=== PATIENT | male | born 1940 | race Caucasian/White ===

== ENCOUNTER 2018-01-05 10:16 | Inpatient (IN) | payer MEDICARE, BC ==
[2018-01-05] MEDS ORDERED: SODIUM CHLORIDE 0.9% 2,000 ML IV ONE (10:24)
--- NOTE | 2018-01-05 10:27 | ED ---
Altered Mental Status HPI - General Stated Complaint: Poss Sepsis Time Seen by Provider: 01/05/18 10:16 Source: EMS, RN notes reviewed, old records reviewed Mode of arrival: EMS - History of Present Illness Initial Comments: This is a 69-year-old male [facility] with complaints of decreased level of consciousness he has of a history dementia who is noted have elevated temperature below her blood pressure increased heart rate blood pressure per EMS of 96/49 after some fluids was 112/48 he also apparently has a bedsore. History pneumonia history of COPD and CHF. Glucose was 240 he is a diabetic. Main complaint was that of lethargy concern for sepsis. No reports of cough reports of dysuria though he does have a chronic indwelling catheter. MD Complaint: decreased responsiveness - Related Data Home Medications Medication Instructions Recorded Confirmed Acetaminophen [Tylenol] 650 mg PO Q6H PRN 01/05/18 01/05/18 Aspirin EC [Ecotrin Low Dose] 81 mg PO HS 01/05/18 01/05/18 Atorvastatin [Lipitor] 20 mg PO HS 01/05/18 01/05/18 Baclofen [Lioresal] 10 mg PO TID@0500,1300,2100 01/05/18 01/05/18 Carvedilol [Coreg] 25 mg PO BID 01/05/18 01/05/18 Citalopram Hydrobromide [CeleXA] 20 mg PO DAILY 01/05/18 01/05/18 Dapagliflozin Propanediol [Farxiga] 10 mg PO DAILY 01/05/18 01/05/18 Dermaseptin 1 applic TOPICAL TID 01/05/18 01/05/18 Diclofenac Sodium/Misoprostol 1 tab PO BID 01/05/18 01/05/18 [Arthrotec 75 mg-200 Mcg Tab] Docusate [Colace] 100 mg PO BID 01/05/18 01/05/18 Donepezil [Aricept] 20 mg PO HS 01/05/18 01/05/18 Famotidine [Pepcid] 20 mg PO DAILY 01/05/18 01/05/18 Gabapentin [Neurontin] 100 mg PO BID 01/05/18 01/05/18 HYDROcodone/APAP 10-325MG [[place] 1 tab PO Q6H PRN 01/05/18 01/05/18 10-325] Insulin Regular, Human [NovoLIN R] See Protocol SQ ACHS@06,11,16,20 01/05/1805/18 Ipratropium-Albuterol Nebulize 3 ml INHALATION RT-Q4H PRN 01/05/18 01/05/18 [Duoneb 0.5 mg-3 mg/3 ml Soln] LORazepam [Ativan] 0.5 mg PO Q6H PRN 01/05/18 01/05/18 Lidocaine [Lidoderm 5% Patch] 1 patch TRANSDERM DAILY@0500 01/05/18 01/05/18 Losartan Potassium 100 mg PO DAILY 01/05/18 01/05/18 Magnesium 200 mg PO HS 01/05/18 01/05/18 Melatonin 5 mg PO HS@199901/05/18 01/05/18 Menthol [Biofreeze] 1 applic TOPICAL TID 01/05/18 01/05/18 Tamsulosin HCl [Flomax] 0.4 mg PO HS 01/05/18 01/05/18 amLODIPine [Norvasc] 10 mg PO DAILY 01/05/18 01/05/18 fentaNYL 25MCG/HR PATCH [Duragesic 1 patch TRANSDERM Q72H 01/05/18 01/05/18 25MCG/HR] traZODone HCL [Desyrel] 50 mg PO HS@199901/05/18 01/05/18 Allergies Allergy/AdvReac Type Severity Reaction Status Date / Time ciprofloxacin [From Cipro] Allergy Unknown Verified 01/05/18 10:34 Review of Systems ROS Statement: Those systems with pertinent positive or pertinent negative responses have been documented in the HPI. ROS Other: All systems not noted in ROS Statement are negative. Limitations: ROS unobtainable due to patients medical condition General Exam - General Exam Comments Initial Comments: This is a well-developed well-nourished awake lethargic male General appearance: alert, lethargic Head exam: Present: atraumatic, normocephalic, normal inspection Eye exam: Present: normal appearance, PERRL, EOMI. Absent: scleral icterus, conjunctival injection, periorbital swelling ENT exam: Present: mucous membranes dry Neck exam: Present: normal inspection. Absent: tenderness, meningismus, lymphadenopathy Respiratory exam: Present: normal lung sounds bilaterally. Absent: respiratory distress, wheezes, rales, rhonchi, stridor Cardiovascular Exam: Present: regular rate, normal rhythm, normal heart sounds. Absent: systolic murmur, diastolic murmur, rubs, gallop, clicks GI/Abdominal exam: Present: soft, normal bowel sounds. Absent: distended, tenderness, guarding, rebound, rigid Rectal exam: Present: normal inspection, other (Patient does have evidence of stage II decubitus changes to the sacrum bilaterally more so on the left. No active weeping or drainage at this time. Marked erythema) exam: Present: other (Lazcano catheter is in place) Extremities exam: Present: normal inspection, full ROM, normal capillary refill. Absent: tenderness, pedal edema, joint swelling, calf tenderness Back exam: Present: normal inspection Neurological exam: Present: alert, altered, CN II-XII intact Psychiatric exam: Present: normal affect, normal mood Skin exam: Present: warm, dry, intact, normal color. Absent: rash Course Vital Signs 01/05/18 01/05/18 01/05/18 10:20 10:33 11:01 Temperature 98.9 F Pulse Rate 68 69 Respiratory 20 20 18 Rate Blood Pressure 97/54 87/50 O2 Sat by Pulse 95 97 Oximetry 01/05/18 01/05/18 01/05/18 12:28 12:38 13:55 Temperature 99.0 F Pulse Rate 73 65 Respiratory 18 18 Rate Blood Pressure 89/52 95/62 O2 Sat by Pulse 95 99 Oximetry Medical Decision Making - Medical Decision Making Patient did respond to IV fluids I did discuss findings with him and his family. Patient be admitted for IV antibiotics IV fluids - Lab Data Result diagrams: 01/05/18 10:49 01/05/18 10:49 Lab Results 01/05/18 01/05/18 01/05/18 Range/Units 10:49 10:49 10:49 WBC 10.9 H (3.8-10.6) k/uL RBC 3.73 L (4.30-5.90) m/uL Hgb 11.6 L (13.0-17.5) gm/dL Hct 33.4 L (39.0-53.0) % MCV 89.7 (80.0-100.0) fL MCH 31.0 (25.0-35.0) pg MCHC 34.6 (31.0-37.0) g/dL RDW 15.1 (11.5-15.5) % Plt Count 220 (150-450) k/uL Neutrophils % 87 % Lymphocytes % 3 % Monocytes % 6 % Eosinophils % 0 % Basophils % 0 % Neutrophils # 9.5 H (1.3-7.7) k/uL Lymphocytes # 0.3 L (1.0-4.8) k/uL Monocytes # 0.7 (0-1.0) k/uL Eosinophils # 0.0 (0-0.7) k/uL Basophils # 0.0 (0-0.2) k/uL Poikilocytosis Slight Sodium (137-145) mmol/L Potassium (3.5-5.1) mmol/L Chloride (98-107) mmol/L Carbon Dioxide (22-30) mmol/L Anion Gap mmol/L BUN (9-20) mg/dL Creatinine (0.66-1.25) mg/dL Est GFR (CKD-EPI)AfAm (>60 ml/min/1.73 sqM) Est GFR (CKD-EPI)NonAf (>60 ml/min/1.73 sqM) Glucose (74-99) mg/dL Plasma Lactic Acid [place] (0.7-2.0) mmol/L Calcium (8.4-10.2) mg/dL Magnesium (1.6-2.3) mg/dL Total Bilirubin (0.2-1.3) mg/dL AST (17-59) U/L ALT (21-72) U/L Alkaline Phosphatase (38-126) U/L Ammonia 16 (<30) umol/L Total Creatine Kinase 36 L (55-170) U/L CK-MB (CK-2) 0.7 (0.0-2.4) ng/mL CK-MB (CK-2) Rel Index 1.9 Total Protein (6.3-8.2) g/dL Albumin (3.5-5.0) g/dL Urine Color Urine Appearance (Clear) Urine pH (5.0-8.0) Ur Specific [place] (1.001-1.035) Urine Protein (Negative) Urine Glucose (UA) (Negative) Urine Ketones (Negative) Urine Blood (Negative) Urine Nitrite (Negative) Urine Bilirubin (Negative) Urine Urobilinogen (<2.0) mg/dL Ur Leukocyte Esterase (Negative) Urine RBC (0-5) /hpf Urine WBC (0-5) /hpf Urine WBC Clumps (None) /hpf 01/05/18 01/05/18 01/05/18 Range/Units 10:49 10:49 10:49 WBC (3.8-10.6) k/uL RBC (4.30-5.90) m/uL Hgb (13.0-17.5) gm/dL Hct (39.0-53.0) % MCV (80.0-100.0) fL MCH (25.0-35.0) pg MCHC (31.0-37.0) g/dL RDW (11.5-15.5) % Plt Count (150-450) k/uL Neutrophils % % Lymphocytes % % Monocytes % % Eosinophils % % Basophils % % Neutrophils # (1.3-7.7) k/uL Lymphocytes # (1.0-4.8) k/uL Monocytes # (0-1.0) k/uL Eosinophils # (0-0.7) k/uL Basophils # (0-0.2) k/uL Poikilocytosis Sodium 143 (137-145) mmol/L Potassium 3.5 (3.5-5.1) mmol/L Chloride 109 H (98-107) mmol/L Carbon Dioxide 23 (22-30) mmol/L Anion Gap 11 mmol/L BUN 23 H (9-20) mg/dL Creatinine 1.00 (0.66-1.25) mg/dL Est GFR (CKD-EPI)AfAm 83 (>60 ml/min/1.73 sqM) Est GFR (CKD-EPI)NonAf 72 (>60 ml/min/1.73 sqM) Glucose 186 H (74-99) mg/dL Plasma Lactic Acid [place] 0.8 (0.7-2.0) mmol/L Calcium 8.5 (8.4-10.2) mg/dL Magnesium 1.8 (1.6-2.3) mg/dL Total Bilirubin 0.9 (0.2-1.3) mg/dL AST 18 (17-59) U/L ALT 33 (21-72) U/L Alkaline Phosphatase 96 (38-126) U/L Ammonia (<30) umol/L Total Creatine Kinase (55-170) U/L CK-MB (CK-2) (0.0-2.4) ng/mL CK-MB (CK-2) Rel Index Total Protein 5.4 L (6.3-8.2) g/dL Albumin 2.6 L (3.5-5.0) g/dL Urine Color Yellow Urine Appearance Cloudy (Clear) Urine pH 6.0 (5.0-8.0) Ur Specific [place] 1.017 (1.001-1.035) Urine Protein 1+ H (Negative) Urine Glucose (UA) 4+ H (Negative) Urine Ketones Negative (Negative) Urine Blood Small H (Negative) Urine Nitrite Positive (Negative) Urine Bilirubin Negative (Negative) Urine Urobilinogen <2.0 (<2.0) mg/dL Ur Leukocyte Esterase Large H (Negative) Urine RBC 5 (0-5) /hpf Urine WBC 81 H (0-5) /hpf Urine WBC Clumps Few H (None) /hpf - EKG Data -: EKG Interpreted by Oh EKG shows normal: [place] [address] QRS duration 92 QT/QTC of 454/42: QT st-t wave changes) - Radiology Data Radiology results: report reviewed (No definite findings on the x-ray), image reviewed Disposition Clinical Impression: Urinary tract infection, Hypotension, Dehydration, Decubitus ulcer Disposition: ADMITTED IP TO THIS [facility] Condition: Stable Referrals: Shaheen Pleitez MD [REFERRING] - 1-2 days
[2018-01-05 11:08] LABS: Basophils % (A) 0 %; Eosinophils % (A) 0 %; HCT 33.4 % (39.0-53.0); HGB 11.6 gm/dL (13.0-17.5); Lymphocytes # (A) 0.3 k/uL (1.0-4.8); Lymphocytes % (A) 3 %; MCHC 34.6 g/dL (31.0-37.0); MCV 89.7 fL (80.0-100.0); Mean Platelet Volume 6.4; Monocytes # (A) 0.7 k/uL (0-1.0); Monocytes % (A) 6 %; Neutrophils # (A) 9.5 k/uL (1.3-7.7); Neutrophils % (A) 87 %; Platelet Count 220 k/uL (150-450); Poikilocytosis Slight; RBC 3.73 m/uL (4.30-5.90); RDW 15.1 % (11.5-15.5); WBC 10.9 k/uL (3.8-10.6)
[2018-01-05 11:28] LABS: Appearance,Urine Cloudy (Clear); Bilirubin,Urine Negative (Negative); Blood,Urine Small (Negative); Color,Urine Yellow; Glucose,Urine (UA) 4+ (Negative); Ketones,Urine Negative (Negative); Leukocyte Esterase,Urine Large (Negative); Nitrite,Urine Positive (Negative); Protein,Urine 1+ (Negative); RBC,Urine 5 /hpf (0-5); Specific Gravity,Urine 1.017 (1.001-1.035); Urobilinogen,Urine <2.0 mg/dL (<2.0); WBC,Urine 81 /hpf (0-5)
[2018-01-05 11:29] LABS: Albumin 2.6 g/dL (3.5-5.0); Calcium 8.5 mg/dL (8.4-10.2); Magnesium 1.8 mg/dL (1.6-2.3); Potassium 3.5 mmol/L (3.5-5.1); Total Bilirubin 0.9 mg/dL (0.2-1.3); Total Protein 5.4 g/dL (6.3-8.2)
--- NOTE | 2018-01-05 11:34 | XR ---
EXAMINATION TYPE: XR chest 2V DATE OF EXAM: 01/05/2018 COMPARISON: Prior chest x-ray 04/28/2017 HISTORY: Cough and shortness of breath TECHNIQUE: Frontal and lateral views of the chest are obtained. FINDINGS: There is bronchial wall thickening. The patient is rotated. Cardiomediastinal silhouette, pulmonary vascularity and mariusz are stable. No airspace disease, pneumothorax, or pleural effusion dinesh dent. IMPRESSION: Correlate for bronchitis, reactive airways disease, follow-up as indicated.
[2018-01-05 11:48] LABS: Creatine Kinase MB 0.7 ng/mL (0.0-2.4)
[2018-01-05] MEDS ORDERED: SODIUM CHLORIDE 0.9% 1,000 ML IV STA (12:31)
[2018-01-05] MEDS ORDERED: PIPERACILLIN-TAZOBACTAM 3.375 GM in DEXTROSE/WATER 1 50ML.BAG IVPB STA (12:32)
[2018-01-05] MEDS ORDERED: MORPHINE SULFATE 4 MG/ML SYRINGE IVP STA (13:52)
[2018-01-05] MEDS ORDERED: NALOXONE 0.4 MG/ML 1 ML VIAL IV PRN (14:49)
[2018-01-05] MEDS ORDERED: IPRATROPIUM-ALBUTEROL 3 ML NEB INHALATION PRN (14:53)
[2018-01-05] MEDS: CALAMINE/ZINC OXIDE LOTION 177 ML BTL TOPICAL SCH ×2 (16:56→21:57)
[2018-01-05] MEDS: CARVEDILOL 12.5 MG TAB PO SCH (17:05)
[2018-01-05 17:30] LABS: Glucose,Whole Blood 154 mg/dL (75-99)
[2018-01-05] MEDS: INSULIN ASPART 100 UNIT/ML 1 ML 10 ML VIAL SQ SCH ×2 (17:33→21:57)
[2018-01-05] MEDS: LORazepam 0.5 MG TAB PO PRN (18:28)
[2018-01-05] MEDS: HYDROcodone/APAP 10-325MG 1 EACH TAB PO PRN (18:37)
[2018-01-05] MEDS: traZODone HCL 50 MG TAB PO SCH (20:02)
[2018-01-05] MEDS: MELATONIN 5 MG TABLET PO SCH (20:02)
[2018-01-05] MEDS: BACLOFEN 10 MG TAB PO SCH (20:03)
[2018-01-05] MEDS: GABAPENTIN 100 MG CAP PO SCH (20:03)
[2018-01-05] MEDS: DOCUSATE 100 MG CAP PO SCH (20:03)
[2018-01-05] MEDS: ASPIRIN 81 MG PO SCH (20:03)
[2018-01-05] MEDS: ATORVASTATIN 20 MG TAB PO SCH (20:03)
[2018-01-05] MEDS: DONEPEZIL 10 MG TAB PO SCH (20:03)
[2018-01-05] MEDS: TAMSULOSIN 0.4 MG CAP.ER.24H PO SCH (20:04)
[2018-01-05] MEDS: MAGNESIUM OXIDE 400 MG TAB PO SCH (20:04)
[2018-01-05 21:18] LABS: Glucose,Whole Blood 115 mg/dL (75-99)
--- NOTE | 2018-01-05 23:03 | P.HPIM ---
History of Present Illness H&P Date: 01/05/18 Chief Complaint: Altered mental status Patient is a 77-year-old male with a known history of dementia, hypertension, hyperlipidemia, diabetes type 2 insulin-dependent and poor functional status was brought from [facility] with complaints of decreased level of consciousness. Patient was recently at [facility] and was transferred to [facility] on last Wednesday. Patient had urinary retention during previous admission and was placed on indwelling catheter before [facility]. Patient also developed stage II decub ulcers. Due to confusion and lethargy and patient was sent to hospital for possible decubitus infection. Patient also had fever, tremors and tachycardic Otherwise patient denied any cough or sputum production. No complaints of chest pain. No shortness of breath. Patient does have indwelling catheter with leg bag currently. 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 Chest x-ray showed correlate for bronchitis. UA showed 4+ glucose. Large leukocyte esterase and WC count 81 Most of the history was taken from his daughter and at bedside and medical records. Review of Systems Complete review of systems could not be apparent from the patient Past Medical History Past Medical History: Dementia, Diabetes Mellitus, Hyperlipidemia, Hypertension , Prostate Disorder History of Any Multi-Drug Resistant Organisms: None Reported Past Psychological History: No Psychological Hx Reported Smoking Status: Former smoker Past Alcohol Use History: None Reported Past Drug Use History: None Reported - Past Family History Brother(s) Family Medical History: Cancer Medications and Allergies Home Medications Medication Instructions Recorded Confirmed Type Acetaminophen [Tylenol] 650 mg PO Q6H PRN 01/05/18 01/05/18 History Aspirin EC [Ecotrin Low Dose] 81 mg PO HS 01/05/18 01/05/18 History Atorvastatin [Lipitor] 20 mg PO HS 01/05/18 01/05/18 History Baclofen [Lioresal] 10 mg PO TID@0500,1300,2100 01/05/18 01/05/18 History Carvedilol [Coreg] 25 mg PO BID 01/05/18 01/05/18 History Citalopram Hydrobromide [CeleXA] 20 mg PO DAILY 01/05/18 01/05/18 History Dapagliflozin Propanediol [Farxiga] 10 mg PO DAILY 01/05/18 01/05/18 History Dermaseptin 1 applic TOPICAL TID 01/05/18 01/05/18 History Diclofenac Sodium/Misoprostol 1 tab PO BID 01/05/18 01/05/18 History [Arthrotec 75 mg-200 Mcg Tab] Docusate [Colace] 100 mg PO BID 01/05/18 01/05/18 History Donepezil [Aricept] 20 mg PO HS 01/05/18 01/05/18 History Famotidine [Pepcid] 20 mg PO DAILY 01/05/18 01/05/18 History Gabapentin [Neurontin] 100 mg PO BID 01/05/18 01/05/18 History HYDROcodone/APAP 10-325MG [[place] 1 tab PO Q6H PRN 01/05/18 01/05/18 History 10-325] Insulin Regular, Human [NovoLIN R] See Protocol SQ ACHS@06,11,16,20 01/05/1805/18 History Ipratropium-Albuterol Nebulize 3 ml INHALATION RT-Q4H PRN 01/05/18 01/05/18 History [Duoneb 0.5 mg-3 mg/3 ml Soln] LORazepam [Ativan] 0.5 mg PO Q6H PRN 01/05/18 01/05/18 History Lidocaine [Lidoderm 5% Patch] 1 patch TRANSDERM DAILY@0500 01/05/18 01/05/18 History Losartan Potassium 100 mg PO DAILY 01/05/18 01/05/18 History Magnesium 200 mg PO HS 01/05/18 01/05/18 History Melatonin 5 mg PO HS@199901/05/18 01/05/18 History Menthol [Biofreeze] 1 applic TOPICAL TID 01/05/18 01/05/18 History Tamsulosin HCl [Flomax] 0.4 mg PO HS 01/05/18 01/05/18 History amLODIPine [Norvasc] 10 mg PO DAILY 01/05/18 01/05/18 History fentaNYL 25MCG/HR PATCH [Duragesic 1 patch TRANSDERM Q72H 01/05/18 01/05/18 History 25MCG/HR] traZODone HCL [Desyrel] 50 mg PO HS@199901/05/18 01/05/18 History Allergies Allergy/AdvReac Type Severity Reaction Status Date / Time ciprofloxacin [From Cipro] Allergy Unknown Verified 01/05/18 10:34 Physical Exam Vitals: Vital Signs Temp Pulse Resp BP Pulse Ox 01/05/18 15:00 88 20 103/56 99 01/05/18 13:55 65 18 95/62 99 01/05/18 12:38 99.0 F 01/05/18 12:28 73 18 89/52 95 01/05/18 11:01 69 18 87/50 97 01/05/18 10:33 20 01/05/18 10:20 98.9 F 68 20 97/54 95 Intake and Output 01/05/18 01/05/18 01/05/18 06:59 14:59 22:59 Other: Weight 68.039 kg Patient Weight 01/06/18 06:59 Weight 68.039 kg PHYSICAL EXAMINATION: Patient is lying in the bed comfortably, no acute distress, awake alert but confused HEENT: Normocephalic. Neck is supple. Pupils reactive. Nostrils clear. Oral cavity is moist. Ears reveal no drainage. Neck reveals no JVD, carotid bruits, or thyromegaly. CHEST EXAMINATION: Trachea is central. Symmetrical expansion. Diminished bilateral air entry. No wheezing no rhonchi. CARDIAC: Normal S1, S2 with no gallops. No murmurs ABDOMEN: Soft. Bowel sounds normal. No organomegaly. No abdominal bruits. Extremities: reveal no edema. No clubbing or cyanosis Neurologically awake, alert and oriented 1 with well-coordinated movements. No focal deficits noted Skin: No rash . Patient does have stage II decub ulcers in the sacral area with no discharge or foul-smelling Psychiatric: Could not be assessed completely Musculoskeletal: No joint swelling or deformity. Normal range of motion. Results CBC & Chem 7: 01/05/18 10:49 01/05/18 10:49 Labs: Abnormal Lab Results - Last 24 Hours (Table) 01/05/18 01/05/18 01/05/18 Range/Units 10:49 10:49 10:49 WBC 10.9 H (3.8-10.6) k/uL RBC 3.73 L (4.30-5.90) m/uL Hgb 11.6 L (13.0-17.5) gm/dL Hct 33.4 L (39.0-53.0) % Neutrophils # 9.5 H (1.3-7.7) k/uL Lymphocytes # 0.3 L (1.0-4.8) k/uL Chloride 109 H (98-107) mmol/L BUN 23 H (9-20) mg/dL Glucose 186 H (74-99) mg/dL Total Creatine Kinase 36 L (55-170) U/L Total Protein 5.4 L (6.3-8.2) g/dL Albumin 2.6 L (3.5-5.0) g/dL Urine Protein (Negative) Urine Glucose (UA) (Negative) Urine Blood (Negative) Ur Leukocyte Esterase (Negative) Urine WBC (0-5) /hpf Urine WBC Clumps (None) /hpf 01/05/18 Range/Units 10:49 WBC (3.8-10.6) k/uL RBC (4.30-5.90) m/uL Hgb (13.0-17.5) gm/dL Hct (39.0-53.0) % Neutrophils # (1.3-7.7) k/uL Lymphocytes # (1.0-4.8) k/uL Chloride (98-107) mmol/L BUN (9-20) mg/dL Glucose (74-99) mg/dL Total Creatine Kinase (55-170) U/L Total Protein (6.3-8.2) g/dL Albumin (3.5-5.0) g/dL Urine Protein 1+ H (Negative) Urine Glucose (UA) 4+ H (Negative) Urine Blood Small H (Negative) Ur Leukocyte Esterase Large H (Negative) Urine WBC 81 H (0-5) /hpf Urine WBC Clumps Few H (None) /hpf Thrombosis Risk Factor Assmnt - DVT/VTE Prophylaxis DVT/VTE Prophylaxis: Pharmacologic Prophylaxis ordered Assessment and Plan Assessment: Acute urinary tract infection. Complicated likely related to Lazcano catheter Altered mental status. Possible metabolic encephalopathy due to infection Stage II sacral decubitus ulcers. Dementia Poor functional status Hypertension Diabetes type 2 Recent urinary retention at outside hospital, currently on Lazcano catheter History of chronic back pain from remote injury DVT prophylaxis Plan: Patient will be continued on antibiotics in the form of Zosyn. Follow-up urine culture and blood culture. Wound care for decubitus ulcers. Continue with home medications and insulin dosing. ID was consulted for further evaluation. Prognosis is guarded with multiple medical problems and comorbid conditions. Time with Patient: Greater than 30
[2018-01-06] MEDS: PIPERACILLIN-TAZOBACTAM 3.375 GM in DEXTROSE/WATER 1 50ML.BAG IVPB SCH ×3 (00:32→16:05)
[2018-01-06] MEDS: LIDOCAINE 5% PATCH TOPICAL SCH (04:49)
[2018-01-06] MEDS: BACLOFEN 10 MG TAB PO SCH ×3 (04:50→21:03)
[2018-01-06] MEDS: HYDROcodone/APAP 10-325MG 1 EACH TAB PO PRN ×2 (04:50→15:09)
[2018-01-06 07:20] LABS: Glucose,Whole Blood 136 mg/dL (75-99)
[2018-01-06] MEDS: INSULIN ASPART 100 UNIT/ML 1 ML 10 ML VIAL SQ SCH ×4 (08:01→22:38)
[2018-01-06] MEDS: CITALOPRAM HYDROBROMIDE 20 MG TAB PO SCH (08:02)
[2018-01-06] MEDS: CARVEDILOL 12.5 MG TAB PO SCH ×2 (08:02→17:46)
[2018-01-06] MEDS: Dapagliflozin Propanediol [Farxiga] PO SCH (08:02)
[2018-01-06] MEDS: amLODIPine 10 MG TAB PO SCH (08:02)
[2018-01-06] MEDS: FAMOTIDINE 20 MG TAB PO SCH (08:02)
[2018-01-06] MEDS: DOCUSATE 100 MG CAP PO SCH ×2 (08:02→21:03)
[2018-01-06] MEDS: GABAPENTIN 100 MG CAP PO SCH ×2 (08:03→21:02)
[2018-01-06] MEDS: HEPARIN SODIUM,PORCINE 5,000 UNIT/ML 1 ML VIAL SQ SCH ×2 (08:03→21:03)
[2018-01-06] MEDS: LOSARTAN 50 MG TAB PO SCH (08:03)
[2018-01-06 09:17] LABS: Basophils % (A) 0 %; Eosinophils # (A) 0.1 k/uL (0-0.7); Eosinophils % (A) 1 %; HCT 31.9 % (39.0-53.0); HGB 10.6 gm/dL (13.0-17.5); Lymphocytes # (A) 0.5 k/uL (1.0-4.8); Lymphocytes % (A) 6 %; MCH 30.3 pg (25.0-35.0); MCHC 33.2 g/dL (31.0-37.0); MCV 91.4 fL (80.0-100.0); Mean Platelet Volume 6.9; Monocytes # (A) 0.7 k/uL (0-1.0); Monocytes % (A) 9 %; Neutrophils # (A) 6.7 k/uL (1.3-7.7); Neutrophils % (A) 81 %; Platelet Count 210 k/uL (150-450); Poikilocytosis Slight; RBC 3.49 m/uL (4.30-5.90); RDW 15.1 % (11.5-15.5); WBC 8.2 k/uL (3.8-10.6)
[2018-01-06] MEDS: LORazepam 0.5 MG TAB PO PRN ×2 (09:27→16:00)
[2018-01-06 09:44] LABS: Calcium 8.3 mg/dL (8.4-10.2); Potassium 3.7 mmol/L (3.5-5.1)
[2018-01-06] MEDS: CALAMINE/ZINC OXIDE LOTION 177 ML BTL TOPICAL SCH ×3 (09:59→22:39)
[2018-01-06 12:43] LABS: Glucose,Whole Blood 152 mg/dL (75-99)
[2018-01-06 17:45] LABS: Glucose,Whole Blood 185 mg/dL (75-99)
[2018-01-06] MEDS: METHYL SALICYLATE/MENTHOL CREAM 5 OZ TOPICAL PRN (18:34)
[2018-01-06] MEDS: TAMSULOSIN 0.4 MG CAP.ER.24H PO SCH (21:02)
[2018-01-06] MEDS: DONEPEZIL 10 MG TAB PO SCH (21:02)
[2018-01-06] MEDS: ATORVASTATIN 20 MG TAB PO SCH (21:02)
[2018-01-06] MEDS: ASPIRIN 81 MG PO SCH (21:03)
[2018-01-06] MEDS: traZODone HCL 50 MG TAB PO SCH (21:03)
[2018-01-06] MEDS: MAGNESIUM OXIDE 400 MG TAB PO SCH (21:03)
[2018-01-06] MEDS: MELATONIN 5 MG TABLET PO SCH (21:15)
[2018-01-06 21:41] LABS: Glucose,Whole Blood 155 mg/dL (75-99)
--- NOTE | 2018-01-06 22:12 | P.PN ---
Subjective Progress Note Date: 01/06/18 Principal diagnosis: Urinary tract infection Patient is a 77-year-old male with a known history of dementia, hypertension, hyperlipidemia, diabetes type 2 insulin-dependent and poor functional status was brought from [facility] with complaints of decreased level of consciousness. Patient was recently at [facility] and was [facility]. Patient had urinary retention during previous admission and was placed on indwelling catheter before discharging to intermediate. Patient also developed stage II decub ulcers. Due to confusion and lethargy and patient was sent to hospital for possible decubitus infection. Patient also had fever, tremors and tachycardic Otherwise patient denied any cough or sputum production. No complaints of chest pain. No shortness of breath. Patient does have indwelling catheter with leg bag currently. 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 Chest x-ray showed correlate for bronchitis. UA showed 4+ glucose. Large leukocyte esterase and WBC count 8.1 01/06/2018 Patient is a poor historian. Denied any chest pain or shortness of breath. Otherwise patient is trying to get to the bed. Sitter is at bedside. ID consult is pending at this time. Urine culture showed gram-negative bacilli. No fever no chills otherwise. Tolerating oral diet. No other acute overnight issues. Complete review of systems could not be apparent from the patient Current medications reviewed Objective - Vital Signs Vital signs: Vital Signs Temp 99.9 F H 01/06/18 15:00 Pulse 94 01/06/18 15:00 Resp 18 01/06/18 15:00 BP 119/54 01/06/18 15:00 Pulse Ox 90 L 01/06/18 15:00 Intake & Output 01/06/18 01/06/18 01/07/18 06:59 18:59 06:59 Output Total 400 Balance -400 Weight 68.039 kg Output: Urine 400 Other: Voiding Method Indwelling Catheter Indwelling Catheter # Voids 1,200 - Exam Patient is lying in the bed comfortably, no acute distress, awake alert but confused HEENT: Normocephalic. Neck is supple. Pupils reactive. Nostrils clear. Oral cavity is moist. Ears reveal no drainage. Neck reveals no JVD, carotid bruits, or thyromegaly. CHEST EXAMINATION: Trachea is central. Symmetrical expansion. Diminished bilateral air entry. No wheezing no rhonchi. CARDIAC: Normal S1, S2 with no gallops. No murmurs ABDOMEN: Soft. Bowel sounds normal. No organomegaly. No abdominal bruits. Extremities: reveal no edema. No clubbing or cyanosis Neurologically awake, alert and oriented 1 with well-coordinated movements. No focal deficits noted Skin: No rash . Patient does have stage II decub ulcers in the sacral area with no discharge or foul-smelling Psychiatric: Could not be assessed completely Musculoskeletal: No joint swelling or deformity. Normal range of motion. - Labs CBC & Chem 7: 01/06/18 08:47 01/06/18 08:47 Labs: Abnormal Lab Results - Last 24 Hours (Table) 01/06/18 01/06/18 01/06/18 Range/Units 07:17 08:47 08:47 RBC 3.49 L (4.30-5.90) m/uL Hgb 10.6 L (13.0-17.5) gm/dL Hct 31.9 L (39.0-53.0) % Lymphocytes # 0.5 L (1.0-4.8) k/uL Chloride 109 H (98-107) mmol/L Glucose 170 H (74-99) mg/dL POC Glucose (mg/dL) 136 H (75-99) mg/dL Calcium 8.3 L (8.4-10.2) mg/dL 01/06/18 01/06/18 01/06/18 Range/Units 12:36 17:36 21:32 RBC (4.30-5.90) m/uL Hgb (13.0-17.5) gm/dL Hct (39.0-53.0) % Lymphocytes # (1.0-4.8) k/uL Chloride (98-107) mmol/L Glucose (74-99) mg/dL POC Glucose (mg/dL) 152 H 185 H 155 H (75-99) mg/dL Calcium (8.4-10.2) mg/dL Microbiology - Last 24 Hours (Table) 01/05/18 10:49 Urine Culture - Preliminary Urine,Catheterized Gram Neg Bacilli 01/05/18 10:49 Blood Culture - Preliminary Blood No Growth after 24 hours Assessment and Plan Assessment: Acute urinary tract infection. Complicated likely related to Lazcano catheter Altered mental status. Possible metabolic encephalopathy due to infection.. Stage II sacral decubitus ulcers. Dementia Poor functional status Hypertension Diabetes type 2 Recent urinary retention at outside hospital, currently on Lazcano catheter History of chronic back pain from remote injury DVT prophylaxis Plan: Patient will be continued on antibiotics in the form of Zosyn. Follow-up urine culture and blood culture. Wound care for decubitus ulcers. Continue with home medications and insulin dosing. ID was consulted for further evaluation. Prognosis is guarded with multiple medical problems and comorbid conditions.
[2018-01-07] MEDS: PIPERACILLIN-TAZOBACTAM 3.375 GM in DEXTROSE/WATER 1 50ML.BAG IVPB SCH ×4 (00:43→23:06)
[2018-01-07] MEDS: HYDROcodone/APAP 10-325MG 1 EACH TAB PO PRN ×2 (03:43→13:14)
[2018-01-07] MEDS: LIDOCAINE 5% PATCH TOPICAL SCH (06:33)
[2018-01-07] MEDS: BACLOFEN 10 MG TAB PO SCH ×3 (06:33→21:37)
[2018-01-07] MEDS: COLLAGENASE 250 UNIT/GM OINTMENT 30 GM TUBE TOPICAL SCH ×2 (06:36→09:02)
[2018-01-07 07:44] LABS: Glucose,Whole Blood 166 mg/dL (75-99)
[2018-01-07] MEDS: Dapagliflozin Propanediol [Farxiga] PO SCH (08:56)
[2018-01-07] MEDS ORDERED: COLLAGENASE 250 UNIT/GM OINTMENT 30 GM TUBE TOPICAL SCH (09:00)
[2018-01-07] MEDS: CARVEDILOL 12.5 MG TAB PO SCH ×2 (09:01→16:45)
[2018-01-07] MEDS: GABAPENTIN 100 MG CAP PO SCH ×2 (09:01→21:37)
[2018-01-07] MEDS: CITALOPRAM HYDROBROMIDE 20 MG TAB PO SCH (09:01)
[2018-01-07] MEDS: FAMOTIDINE 20 MG TAB PO SCH (09:01)
[2018-01-07] MEDS: LOSARTAN 50 MG TAB PO SCH (09:01)
[2018-01-07] MEDS: amLODIPine 10 MG TAB PO SCH (09:02)
[2018-01-07] MEDS: HEPARIN SODIUM,PORCINE 5,000 UNIT/ML 1 ML VIAL SQ SCH ×2 (09:02→21:36)
[2018-01-07] MEDS: DOCUSATE 100 MG CAP PO SCH ×2 (09:02→21:36)
[2018-01-07] MEDS: INSULIN ASPART 100 UNIT/ML 1 ML 10 ML VIAL SQ SCH ×4 (09:02→21:49)
[2018-01-07] MEDS: CALAMINE/ZINC OXIDE LOTION 177 ML BTL TOPICAL SCH ×4 (09:03→21:51)
--- NOTE | 2018-01-07 09:13 | P.CONS ---
History of Present Illness - Reason for Consult Consult date: 01/06/18 - Chief Complaint Gram-negative infection - History of Present Illness 77-year-old male presents to Hospital from the extended care facility with alteration of his mental status. This 77-year-old gentleman has underlying dementia and was recently hospitalized an outside hospital where he was found evidence of urinary retention as well as urinary tract infection. It is related that he was treated for his urinary infection but apparently developed pressure ulcerations. The pressure ulcerations of his coccyx and buttocks are present on admission. It this time the patient is supine and comfortable. He is able to speak with her quality of his speech is poor and content. He does not seem to be very uncomfortable. Was not able to follow most commands. Patient however is not in wilma distress. Review of Systems ROS unobtainable: due to mental status Past Medical History Past Medical History: Dementia, Diabetes Mellitus, Hyperlipidemia, Hypertension , Prostate Disorder Additional Past Medical History / Comment(s): Chronic IDC History of Any Multi-Drug Resistant Organisms: None Reported Additional Past Surgical History / Comment(s): Adriel hip replacement, one TKR Past Anesthesia/Blood Transfusion Reactions: No Reported Reaction Past Psychological History: No Psychological Hx Reported Additional Psychological History / Comment(s): Recent decline of his overall health. Recently hospitalized with urinary infection. And then was placed into extended care. Appears this has not been a long-term situation. Smoking Status: Former smoker Past Alcohol Use History: None Reported Past Drug Use History: None Reported - Past Family History Brother(s) Family Medical History: Cancer Medications and Allergies Home Medications and Allergies Comment(s): Current Medications Acetaminophen (Tylenol Tab) 650 mg PO Q6H PRN PRN Reason: Fever Hydrocodone Bitart/Acetaminophen ([facility] 10) 1 each PO Q6H PRN PRN Reason: Pain Last Admin: 01/07/18 03:43 Dose: 1 each Albuterol/Ipratropium (Duoneb 0.5 Mg-3 Mg/3 Ml Soln) 3 ml INHALATION RT-Q4H PRN PRN Reason: Shortness Of Breath Amlodipine Besylate (Norvasc) 10 mg PO DAILY [facility] Last Admin: 01/06/18 08:02 Dose: 10 mg Aspirin (Aspirin) 81 mg PO HS [facility] Last Admin: 01/06/18 21:03 Dose: 81 mg Atorvastatin Calcium (Lipitor) 20 mg PO HS [facility] Last Admin: 01/06/18 21:02 Dose: 20 mg Baclofen (Lioresal) 10 mg PO TID@0500,1300,2100 [facility] Last Admin: 01/07/18 06:33 Dose: 10 mg Calamine (Calamine Lotion) 1 applic TOPICAL TID [facility] Last Admin: 01/06/18 22:39 Dose: Not Given Carvedilol (Coreg) 25 mg PO BID-W/MEALS [facility] Last Admin: 01/06/18 17:46 Dose: 25 mg Citalopram Hydrobromide (Celexa) 20 mg PO DAILY [facility] Last Admin: 01/06/18 08:02 Dose: 20 mg Collagenase (Santyl) 1 applic TOPICAL DAILY [facility] Last Admin: 01/07/18 06:36 Dose: 1 applic Docusate Sodium (Colace) 100 mg PO BID [facility] Last Admin: 01/06/18 21:03 Dose: 100 mg Donepezil HCl (Aricept) 20 mg PO [facility] Last Admin: 01/06/18 21:02 Dose: 20 mg Famotidine (Pepcid) 20 mg PO DAILY [facility] Last Admin: 01/06/18 08:02 Dose: 20 mg Fentanyl (Duragesic 25mcg/Hr Patch) 1 patch TRANSDERM Q72H [facility] Gabapentin (Neurontin) 100 mg PO BID [facility] Last Admin: 01/06/18 21:02 Dose: 100 mg Heparin Sodium (Porcine) (Heparin) 5,000 unit SQ Q12HR [facility] Last Admin: 01/06/18 21:03 Dose: 5,000 unit Piperacillin/Tazobactam/ (Dextrose 3.375 gm/ IV Solution) 50 mls @ 12.5 mls/hr IVPB Q8HR [facility] Last Admin: 01/07/18 00:43 Dose: 12.5 mls/hr Insulin Aspart (Novolog) 0 unit SQ ACHS [facility] PRN Reason: Protocol Last Admin: 01/06/18 22:38 Dose: 1 unit Lidocaine (Lidoderm) 1 patch TOPICAL DAILY@0500 [facility] Last Admin: 01/07/18 06:33 Dose: 1 patch Lorazepam (Ativan) 0.5 mg PO Q6H PRN PRN Reason: Anxiety Last Admin: 01/06/18 16:00 Dose: 0.5 mg Losartan Potassium (Cozaar) 100 mg PO DAILY [facility] Last Admin: 01/06/18 08:03 Dose: 100 mg Magnesium Oxide (Mag-Ox) 200 mg PO [facility] Last Admin: 01/06/18 21:03 Dose: 200 mg Melatonin (Melatonin) 5 mg PO HS@1999 [facility] Last Admin: 01/06/18 21:15 Dose: 5 mg Methyl Salicylate (Thera-Gesic Cream) 1 applic TOPICAL TID PRN PRN Reason: Muscle Pain Last Admin: 01/06/18 18:34 Dose: 1 applic Naloxone HCl (Narcan) 0.2 mg IV Q2M PRN PRN Reason: Opioid Reversal Dapagliflozin Propanediol [Farxiga ] 10 mg PO DAILY [facility] Last Admin: 01/06/18 08:02 Dose: Not Given Tamsulosin HCl (Flomax) 0.4 mg PO [facility] Last Admin: 01/06/18 21:02 Dose: 0.4 mg Trazodone HCl (Desyrel) 50 mg PO @1999 [facility] Last Admin: 01/06/18 21:03 Dose: 50 mg Home Medications Medication Instructions Recorded Confirmed Type Acetaminophen [Tylenol] 650 mg PO Q6H PRN 01/05/18 01/05/18 History Aspirin EC [Ecotrin Low Dose] 81 mg PO 01/05/18 01/05/18 History Atorvastatin [Lipitor] 20 mg PO 01/05/18 01/05/18 History Baclofen [Lioresal] 10 mg PO TID@0500,1300,2100 01/05/18 01/05/18 History Carvedilol [Coreg] 25 mg PO BID 01/05/18 01/05/18 History Citalopram Hydrobromide [CeleXA] 20 mg PO DAILY 01/05/18 01/05/18 History Dapagliflozin Propanediol [Farxiga] 10 mg PO DAILY 01/05/18 01/05/18 History Dermaseptin 1 applic TOPICAL TID 01/05/18 01/05/18 History Diclofenac Sodium/Misoprostol 1 tab PO BID 01/05/18 01/05/18 History [Arthrotec 75 mg-200 Mcg Tab] Docusate [Colace] 100 mg PO BID 01/05/18 01/05/18 History Donepezil [Aricept] 20 mg PO HS 01/05/18 01/05/18 History Famotidine [Pepcid] 20 mg PO DAILY 01/05/18 01/05/18 History Gabapentin [Neurontin] 100 mg PO BID 01/05/18 01/05/18 History HYDROcodone/APAP 10-325MG [[facility] 1 tab PO Q6H PRN 01/05/18 01/05/18 History 10-325] Insulin Regular, Human [NovoLIN R] See Protocol SQ ACHS@06,11,16,20 01/05/1805/18 History Ipratropium-Albuterol Nebulize 3 ml INHALATION RT-Q4H PRN 01/05/18 01/05/18 History [Duoneb 0.5 mg-3 mg/3 ml Soln] LORazepam [Ativan] 0.5 mg PO Q6H PRN 01/05/18 01/05/18 History Lidocaine [Lidoderm 5% Patch] 1 patch TRANSDERM DAILY@0500 01/05/18 01/05/18 History Losartan Potassium 100 mg PO DAILY 01/05/18 01/05/18 History Magnesium 200 mg PO HS 01/05/18 01/05/18 History Melatonin 5 mg PO HS@199901/05/18 01/05/18 History Menthol [Biofreeze] 1 applic TOPICAL TID 01/05/18 01/05/18 History Tamsulosin HCl [Flomax] 0.4 mg PO HS 01/05/18 01/05/18 History amLODIPine [Norvasc] 10 mg PO DAILY 01/05/18 01/05/18 History fentaNYL 25MCG/HR PATCH [Duragesic 1 patch TRANSDERM Q72H 01/05/18 01/05/18 History 25MCG/HR] traZODone HCL [Desyrel] 50 mg PO HS@199901/05/18 01/05/18 History Allergies Allergy/AdvReac Type Severity Reaction Status Date / Time ciprofloxacin [From Cipro] Allergy Unknown Verified 01/05/18 10:34 Physical Exam Vitals: Vital Signs Temp Pulse Resp BP Pulse Ox 01/07/18 07:00 97.0 F L 74 16 125/78 94 L 01/06/18 15:00 99.9 F H 94 18 119/54 90 L Intake and Output 01/06/18 01/07/18 01/07/18 22:59 06:59 14:59 Output Total 1000 Balance -1000 Output: Urine 1000 Other: Voiding Method Indwelling Catheter Indwelling Catheter 77-year-old male in no distress, HEENT: Anicteric, conjunctiva are pink and moist, nasal or oral mucosa are without lesion. The neck is supple without lymphadenopathy or thyromegaly. No oral thrush is noted. Oral mucosa is slightly dry but no oral lesions are seen Lungs: Symmetrical air entry is noted, expiratory scattered wheezes are heard but no bronchial sounds or egophony noted Heart: Regular rate and rhythm with an audible S1-S2, no S3 loud S4 noted. No significant murmur click or rub noted. Abdomen: Positive bowel sounds, soft and nontender, there is no palpable masses or organomegaly. Abdomen is without guarding or rebound. Extremities:Upper extremities reveal evidence of equal pulses, no lesions are seen, no petechiae or telangiectasia. The lower extremities have no significant edema, peripheral pulses were 2+ and symmetric, no lesions or ulcerations are seen. Capillary refill was brisk. Skin: No significant rashes are seen. The patient does have evidence of pressure ulceration on the buttocks area. The more superior ulceration measures at 4 x 3.5 but has eschar and is non-stable, more distally the 3 x 2 x 0.2 cm ulceration has just some scant drainage. Neither one were very tender to manipulation. Neuro:Awake and alert, oriented to person only. As far as following commands opened his mouth when requested but didn't follow any other commands correctly and could not assist at all on rolling to his side. Musculoskeletal: Patient is with generalized weakness No acute joint effusions are noted. Lymph: No cervical, supraclavicular, axillary, epitrochlear, or inguinal lymphadenopathy was noted. Results CBC & Chem 7: 01/06/18 08:47 01/06/18 08:47 Labs: Abnormal Lab Results - Last 24 Hours (Table) 01/06/18 01/06/18 01/06/18 Range/Units 08:47 08:47 12:36 RBC 3.49 L (4.30-5.90) m/uL Hgb 10.6 L (13.0-17.5) gm/dL Hct 31.9 L (39.0-53.0) % Lymphocytes # 0.5 L (1.0-4.8) k/uL Chloride 109 H (98-107) mmol/L Glucose 170 H (74-99) mg/dL POC Glucose (mg/dL) 152 H (75-99) mg/dL Calcium 8.3 L (8.4-10.2) mg/dL 01/06/18 01/06/18 01/07/18 Range/Units 17:36 21:32 07:29 RBC (4.30-5.90) m/uL Hgb (13.0-17.5) gm/dL Hct (39.0-53.0) % Lymphocytes # (1.0-4.8) k/uL Chloride (98-107) mmol/L Glucose (74-99) mg/dL POC Glucose (mg/dL) 185 H 155 H 166 H (75-99) mg/dL Calcium (8.4-10.2) mg/dL Microbiology - Last 24 Hours (Table) 01/05/18 10:49 Urine Culture - Preliminary Urine,Catheterized Gram Neg Bacilli 01/05/18 10:49 Blood Culture - Preliminary Blood No Growth after 24 hours Laboratory Results WBC 8.2 k/uL (3.8-10.6) 01/06/18 08:47 RBC 3.49 m/uL (4.30-5.90) L 01/06/18 08:47 Hgb 10.6 gm/dL (13.0-17.5) L 01/06/18 08:47 Hct 31.9 % (39.0-53.0) L 01/06/18 08:47 MCV 91.4 fL (80.0-100.0) 01/06/18 08:47 MCH 30.3 pg (25.0-35.0) 01/06/18 08:47 MCHC 33.2 g/dL (31.0-37.0) 01/06/18 08:47 RDW 15.1 % (11.5-15.5) 01/06/18 08:47 Plt Count 210 k/uL (150-450) 01/06/18 08:47 Neutrophils % 81 % 01/06/18 08:47 Lymphocytes % 6 % 01/06/18 08:47 Monocytes % 9 % 01/06/18 08:47 Eosinophils % 1 % 01/06/18 08:47 Basophils % 0 % 01/06/18 08:47 Neutrophils # 6.7 k/uL (1.3-7.7) 01/06/18 08:47 Lymphocytes # 0.5 k/uL (1.0-4.8) L 01/06/18 08:47 Monocytes # 0.7 k/uL (0-1.0) 01/06/18 08:47 Eosinophils # 0.1 k/uL (0-0.7) 01/06/18 08:47 Basophils # 0.0 k/uL (0-0.2) 01/06/18 08:47 Poikilocytosis Slight 01/06/18 08:47 Sodium 143 mmol/L (137-145) 01/06/18 08:47 Potassium 3.7 mmol/L (3.5-5.1) 01/06/18 08:47 Chloride 109 mmol/L (98-107) H 01/06/18 08:47 Carbon Dioxide 27 mmol/L (22-30) 01/06/18 08:47 Anion Gap 7 mmol/L 01/06/18 08:47 BUN 19 mg/dL (9-20) 01/06/18 08:47 Creatinine 0.96 mg/dL (0.66-1.25) 01/06/18 08:47 Est GFR (CKD-EPI)AfAm 88 (>60 ml/min/1.73 sqM) 03 08:47 Est GFR (CKD-EPI)NonAf 76 (>60 ml/min/1.73 sqM) 01/06/18 08:47 Glucose 170 mg/dL (74-99) H 01/06/18 08:47 POC Glucose (mg/dL) 166 mg/dL (75-99) H 01/07/18 07:29 POC Glu Real Estate Transaction Manager ID Jennifer Cramer 01/07/18 07:29 Plasma Lactic Acid [place] 0.8 mmol/L (0.7-2.0) 01/05/18 10:49 Calcium 8.3 mg/dL (8.4-10.2) L 01/06/18 08:47 Magnesium 1.8 mg/dL (1.6-2.3) 01/05/18 10:49 Total Bilirubin 0.9 mg/dL (0.2-1.3) 01/05/18 10:49 AST 18 U/L (17-59) 01/05/18 10:49 ALT 33 U/L (21-72) 01/05/18 10:49 Alkaline Phosphatase 96 U/L (38-126) 01/05/18 10:49 Ammonia 16 umol/L (<30) 01/05/18 10:49 Total Creatine Kinase 36 U/L (55-170) L 01/05/18 10:49 CK-MB (CK-2) 0.7 ng/mL (0.0-2.4) 01/05/18 10:49 CK-MB (CK-2) Rel Index 1.9 01/05/18 10:49 Total Protein 5.4 g/dL (6.3-8.2) L 01/05/18 10:49 Albumin 2.6 g/dL (3.5-5.0) L 01/05/18 10:49 Urine Color Yellow 01/05/18 10:49 Urine Appearance Cloudy (Clear) 01/05/18 10:49 Urine pH 6.0 (5.0-8.0) 01/05/18 10:49 Ur Specific [place] 1.017 (1.001-1.035) 01/05/18 10:49 Urine Protein 1+ (Negative) H 01/05/18 10:49 Urine Glucose (UA) 4+ (Negative) H 01/05/18 10:49 Urine Ketones Negative (Negative) 01/05/18 10:49 Urine Blood Small (Negative) H 01/05/18 10:49 Urine Nitrite Positive (Negative) 01/05/18 10:49 Urine Bilirubin Negative (Negative) 01/05/18 10:49 Urine Urobilinogen <2.0 mg/dL (<2.0) 01/05/18 10:49 Ur Leukocyte Esterase Large (Negative) H 01/05/18 10:49 Urine RBC 5 /hpf (0-5) 01/05/18 10:49 Urine WBC 81 /hpf (0-5) H 01/05/18 10:49 Urine WBC Clumps Few /hpf (None) H 01/05/18 10:49 Microbiology 01/05/18 10:49 Urine,Catheterized Urine Culture - Preliminary Gram Neg Bacilli 01/05/18 10:49 Blood Blood Culture - Preliminary No Growth after 24 hours Assessment and Plan (1) Urinary tract infection Narrative/Plan: 77-year-old male presents from the extended care facility with alteration of his mental status and increasing weakness. It is related the patient has had a decline of his status as of late. He does have underlying dementia and was recently hospitalized an outside facility where he was on evidence of urinary tract infection. This was treated and he was released to extended care facility. Apparently there is been difficulties with his mobility and he now has present on admission ulceration to his left buttocks as above. Collagenase will be applied to the unstageable ulcer #1 of the buttocks and the opticell foam to the stage III that is distal to the ulcer #1. Antibiotic therapy is currently with Zosyn and we await the final cultures to further de- escalate antibiotic therapy, however is an adequate choice at this time given that he has been an extended care facility there is some concerns for more resistant pathogens. Enhance glucose control and improve her depression will all be helpful in his wound healing. Multivitamin will be added. Air mattress overlay also requested. Current Visit: Yes Status: Acute Code(s): N39.0 - URINARY TRACT INFECTION, SITE NOT SPECIFIED SNOMED Code(s): 80089923 (2) Gram negative sepsis Current Visit: Yes Status: Acute Code(s): A41.50 - GRAM-NEGATIVE SEPSIS, UNSPECIFIED SNOMED Code(s): 150734061 (3) Unstageable pressure ulcer of left buttock Current Visit: Yes Status: Acute Code(s): L89.320 - PRESSURE ULCER OF LEFT BUTTOCK, UNSTAGEABLE SNOMED Code(s): 652383026 (4) Stage III pressure ulcer of left buttock Current Visit: Yes Status: Acute Code(s): L89.323 - PRESSURE ULCER OF LEFT BUTTOCK, STAGE 3 SNOMED Code(s): 646584617
[2018-01-07] MEDS: MULTIVITAMINS, THERA 1 EACH TAB PO SCH (12:19)
[2018-01-07 12:22] LABS: Glucose,Whole Blood 133 mg/dL (75-99)
[2018-01-07] MEDS: ACETAMINOPHEN TAB 325 MG TAB PO PRN (15:46)
[2018-01-07] MEDS: LORazepam 0.5 MG TAB PO PRN (16:44)
[2018-01-07 17:21] LABS: Glucose,Whole Blood 163 mg/dL (75-99)
[2018-01-07] MEDS: ASPIRIN 81 MG PO SCH (21:36)
[2018-01-07] MEDS: MELATONIN 5 MG TABLET PO SCH (21:36)
[2018-01-07] MEDS: traZODone HCL 50 MG TAB PO SCH (21:37)
[2018-01-07] MEDS: ATORVASTATIN 20 MG TAB PO SCH (21:37)
[2018-01-07] MEDS: DONEPEZIL 10 MG TAB PO SCH (21:37)
[2018-01-07] MEDS: TAMSULOSIN 0.4 MG CAP.ER.24H PO SCH (21:37)
[2018-01-07] MEDS: MAGNESIUM OXIDE 400 MG TAB PO SCH (21:37)
--- NOTE | 2018-01-07 23:19 | P.PN ---
Subjective Progress Note Date: 01/07/18 Principal diagnosis: Altered mental status 77-year-old male presents to Hospital from the extended care facility with alteration of his mental status. This 77-year-old gentleman has underlying dementia and was recently hospitalized an outside hospital where he was found evidence of urinary retention as well as urinary tract infection. It is related that he was treated for his urinary infection but apparently developed pressure ulcerations. The pressure ulcerations of his coccyx and buttocks are present on admission. It this time the patient is supine and comfortable. He is able to speak with her quality of his speech is poor and content. He does not seem to be very uncomfortable. Was not able to follow most commands. Patient however is not in wilma distress. 01/07/2018 the patient is somewhat uncomfortable still. He has 2 daughters present who will ensure that he gets his meal and this evening. He's been complaining of pain of some agitation. They're aware of his progressive dementia and the overall impact this has on his quality of life. 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 Objective - Vital Signs Vital signs: Vital Signs Temp 100.1 F H 01/07/18 15:00 Pulse 80 01/07/18 15:00 Resp 16 01/07/18 15:00 BP 116/59 01/07/18 15:00 Pulse Ox 96 01/07/18 15:00 Intake & Output 01/07/18 01/07/18 01/08/18 06:59 18:59 06:59 Output Total 1000 1100 Balance -1000 -1100 Weight 68.039 kg Output: Urine 1000 1100 Other: Voiding Method Indwelling Catheter Indwelling Catheter Indwelling Catheter # Bowel Movements 1 - Exam 77-year-old male in no distress, HEENT: Anicteric, conjunctiva are pink and moist, nasal or oral mucosa are without lesion. The neck is supple without lymphadenopathy or thyromegaly. No oral thrush is noted. Oral mucosa is slightly dry but no oral lesions are seen Lungs: Symmetrical air entry is noted, expiratory scattered wheezes are heard but no bronchial sounds or egophony noted Heart: Regular rate and rhythm with an audible S1-S2, no S3 loud S4 noted. No significant murmur click or rub noted. Abdomen: Positive bowel sounds, soft and nontender, there is no palpable masses or organomegaly. Abdomen is without guarding or rebound. Extremities:Upper extremities reveal evidence of equal pulses, no lesions are seen, no petechiae or telangiectasia. The lower extremities have no significant edema, peripheral pulses were 2+ and symmetric, no lesions or ulcerations are seen. Capillary refill was brisk. Skin: No significant rashes are seen. The patient does have evidence of pressure ulceration on the buttocks area. The more superior ulceration measures at 4 x 3.5 but has eschar and is non-stable, more distally the 3 x 2 x 0.2 cm ulceration has just some scant drainage. Neither one were very tender to manipulation. Neuro:Awake and alert, oriented to person only. As far as following commands opened his mouth when requested but didn't follow any other commands correctly and could not assist at all on rolling to his side. Musculoskeletal: Patient is with generalized weakness No acute joint effusions are noted. Lymph: No cervical, supraclavicular, axillary, epitrochlear, or inguinal lymphadenopathy was noted. - Labs CBC & Chem 7: 01/06/18 08:47 01/06/18 08:47 Labs: Abnormal Lab Results - Last 24 Hours (Table) 01/07/18 01/07/18 01/07/18 Range/Units 07:29 12:18 17:18 POC Glucose (mg/dL) 166 H 133 H 163 H (75-99) mg/dL Microbiology - Last 24 Hours (Table) 01/05/18 10:49 Urine Culture - Final Urine,Catheterized Escherichia coli Acinetobacter anastacio/haemol 01/05/18 10:49 Blood Culture - Preliminary Blood No Growth after 48 hours Laboratory Results WBC 8.2 k/uL (3.8-10.6) 01/06/18 08:47 RBC 3.49 m/uL (4.30-5.90) L 01/06/18 08:47 Hgb 10.6 gm/dL (13.0-17.5) L 01/06/18 08:47 Hct 31.9 % (39.0-53.0) L 01/06/18 08:47 MCV 91.4 fL (80.0-100.0) 01/06/18 08:47 MCH 30.3 pg (25.0-35.0) 01/06/18 08:47 MCHC 33.2 g/dL (31.0-37.0) 01/06/18 08:47 RDW 15.1 % (11.5-15.5) 01/06/18 08:47 Plt Count 210 k/uL (150-450) 01/06/18 08:47 Neutrophils % 81 % 03 08:47 Lymphocytes % 6 % 01/06/18 08:47 Monocytes % 9 % 01/06/18 08:47 Eosinophils % 1 % 01/06/18 08:47 Basophils % 0 % 01/06/18 08:47 Neutrophils # 6.7 k/uL (1.3-7.7) 01/06/18 08:47 Lymphocytes # 0.5 k/uL (1.0-4.8) L 01/06/18 08:47 Monocytes # 0.7 k/uL (0-1.0) 01/06/18 08:47 Eosinophils # 0.1 k/uL (0-0.7) 01/06/18 08:47 Basophils # 0.0 k/uL (0-0.2) 01/06/18 08:47 Poikilocytosis Slight 01/06/18 08:47 Sodium 143 mmol/L (137-145) 01/06/18 08:47 Potassium 3.7 mmol/L (3.5-5.1) 01/06/18 08:47 Chloride 109 mmol/L (98-107) H 01/06/18 08:47 Carbon Dioxide 27 mmol/L (22-30) 01/06/18 08:47 Anion Gap 7 mmol/L 01/06/18 08:47 BUN 19 mg/dL (9-20) 01/06/18 08:47 Creatinine 0.96 mg/dL (0.66-1.25) 01/06/18 08:47 Est GFR (CKD-EPI)AfAm 88 (>60 ml/min/1.73 sqM) 01/06/18 08:47 Est GFR (CKD-EPI)NonAf 76 (>60 ml/min/1.73 sqM) 01/06/18 08:47 Glucose 170 mg/dL (74-99) H 01/06/18 08:47 POC Glucose (mg/dL) 163 mg/dL (75-99) H 01/07/18 17:18 POC Glu Recreation Technician Jennifer Anne 01/07/18 17:18 Plasma Lactic Acid [place] 0.8 mmol/L (0.7-2.0) 01/05/18 10:49 Calcium 8.3 mg/dL (8.4-10.2) L 01/06/18 08:47 Magnesium 1.8 mg/dL (1.6-2.3) 01/05/18 10:49 Total Bilirubin 0.9 mg/dL (0.2-1.3) 01/05/18 10:49 AST 18 U/L (17-59) 01/05/18 10:49 ALT 33 U/L (21-72) 01/05/18 10:49 Alkaline Phosphatase 96 U/L (38-126) 01/05/18 10:49 Ammonia 16 umol/L (<30) 01/05/18 10:49 Total Creatine Kinase 36 U/L (55-170) L 01/05/18 10:49 CK-MB (CK-2) 0.7 ng/mL (0.0-2.4) 01/05/18 10:49 CK-MB (CK-2) Rel Index 1.9 01/05/18 10:49 Total Protein 5.4 g/dL (6.3-8.2) L 01/05/18 10:49 Albumin 2.6 g/dL (3.5-5.0) L 01/05/18 10:49 Urine Color Yellow 01/05/18 10:49 Urine Appearance Cloudy (Clear) 01/05/18 10:49 Urine pH 6.0 (5.0-8.0) 01/05/18 10:49 Ur Specific [place] 1.017 (1.001-1.035) 01/05/18 10:49 Urine Protein 1+ (Negative) H 01/05/18 10:49 Urine Glucose (UA) 4+ (Negative) H 01/05/18 10:49 Urine Ketones Negative (Negative) 01/05/18 10:49 Urine Blood Small (Negative) H 01/05/18 10:49 Urine Nitrite Positive (Negative) 01/05/18 10:49 Urine Bilirubin Negative (Negative) 01/05/18 10:49 Urine Urobilinogen <2.0 mg/dL (<2.0) 01/05/18 10:49 Ur Leukocyte Esterase Large (Negative) H 01/05/18 10:49 Urine RBC 5 /hpf (0-5) 01/05/18 10:49 Urine WBC 81 /hpf (0-5) H 01/05/18 10:49 Urine WBC Clumps Few /hpf (None) H 01/05/18 10:49 Microbiology 01/05/18 10:49 Urine,Catheterized Urine Culture - Final Escherichia coli Acinetobacter anastacio/haemol 01/05/18 10:49 Blood Blood Culture - Preliminary No Growth after 48 hours Assessment and Plan (1) Urinary tract infection Narrative/Plan: 77-year-old male presents from the extended care facility with alteration of his mental status and increasing weakness. It is related the patient has had a decline of his status as of late. He does have underlying dementia and was recently hospitalized an outside facility where he was on evidence of urinary tract infection. This was treated and he was released to extended care facility. Apparently there is been difficulties with his mobility and he now has present on admission ulceration to his left buttocks as above. Collagenase will be applied to the unstageable ulcer #1 of the buttocks and the opticell foam to the stage III that is distal to the ulcer #1. Antibiotic therapy is currently with Zosyn and we await the final cultures to further de- escalate antibiotic therapy, however is an adequate choice at this time given that he has been an extended care facility there is some concerns for more resistant pathogens. Enhance glucose control and improve protein will all be helpful in his wound healing. Multivitamin will be added. Air mattress overlay . 01/07/2018 the patient remained somewhat uncomfortable. Wound care is continuing without acute difficulty. Urine culture is now available and we'll alter antibiotic therapy from Zosyn to meropenem for his ESBL ecoli and acientobacter isolated from the urine. Will be going back to extended care to complete his course of antibiotic therapy when he is improved. Family aware of his declining status. Current Visit: Yes Status: Acute Code(s): N39.0 - URINARY TRACT INFECTION, SITE NOT SPECIFIED SNOMED Code(s): 34059078 (2) Gram negative sepsis Current Visit: Yes Status: Acute Code(s): A41.50 - GRAM-NEGATIVE SEPSIS, UNSPECIFIED SNOMED Code(s): 749639071 (3) Unstageable pressure ulcer of left buttock Current Visit: Yes Status: Acute Code(s): L89.320 - PRESSURE ULCER OF LEFT BUTTOCK, UNSTAGEABLE SNOMED Code(s): 347164492 (4) Stage III pressure ulcer of left buttock Current Visit: Yes Status: Acute Code(s): L89.323 - PRESSURE ULCER OF LEFT BUTTOCK, STAGE 3 SNOMED Code(s): 856681381
[2018-01-07] MEDS: MEROPENEM 1 GM in SODIUM CHLORIDE 0.9% 100 ML IVPB SCH (23:53)
[2018-01-08] MEDS: LIDOCAINE 5% PATCH TOPICAL SCH (06:03)
[2018-01-08] MEDS: BACLOFEN 10 MG TAB PO SCH ×3 (06:25→19:40)
[2018-01-08 07:00] LABS: Glucose,Whole Blood 148 mg/dL (75-99)
[2018-01-08] MEDS: CALAMINE/ZINC OXIDE LOTION 177 ML BTL TOPICAL SCH ×3 (07:48→19:41)
[2018-01-08] MEDS: Dapagliflozin Propanediol [Farxiga] PO SCH (07:49)
[2018-01-08] MEDS: GABAPENTIN 100 MG CAP PO SCH ×2 (07:57→19:40)
[2018-01-08] MEDS: HYDROcodone/APAP 10-325MG 1 EACH TAB PO PRN ×3 (07:57→20:08)
[2018-01-08] MEDS: HEPARIN SODIUM,PORCINE 5,000 UNIT/ML 1 ML VIAL SQ SCH ×2 (07:57→19:40)
[2018-01-08] MEDS: CITALOPRAM HYDROBROMIDE 20 MG TAB PO SCH (07:57)
[2018-01-08] MEDS: LORazepam 0.5 MG TAB PO PRN ×3 (07:58→23:29)
[2018-01-08] MEDS: DOCUSATE 100 MG CAP PO SCH ×2 (07:59→19:40)
[2018-01-08] MEDS: CARVEDILOL 12.5 MG TAB PO SCH ×2 (07:59→17:38)
[2018-01-08] MEDS: LOSARTAN 50 MG TAB PO SCH (07:59)
[2018-01-08] MEDS: amLODIPine 10 MG TAB PO SCH (07:59)
[2018-01-08] MEDS: FAMOTIDINE 20 MG TAB PO SCH (07:59)
[2018-01-08] MEDS: INSULIN ASPART 100 UNIT/ML 1 ML 10 ML VIAL SQ SCH ×4 (08:00→23:19)
[2018-01-08] MEDS: MEROPENEM 1 GM in SODIUM CHLORIDE 0.9% 100 ML IVPB SCH ×3 (08:00→23:35)
[2018-01-08] MEDS: COLLAGENASE 250 UNIT/GM OINTMENT 30 GM TUBE TOPICAL SCH (08:00)
--- NOTE | 2018-01-08 10:23 | P.GSCN ---
History of Present Illness Consult date: 01/08/18 Reason for Consult: Urinary retention History of present illness: The patient is a 77-year-old male who was admitted on 01/06/2018 for evaluation of altered mental status which was felt to be related to a urinary tract infection and/or infected pressure ulcers. Patient had a catheter in place at the time of admission and a urine culture has grown E. coli and Acinetobacter. He is currently receiving meropenem. The patient is not a particularly good historian and his history is from review of the hospital chart and review of my office notes. Patient has been seen by me previously and was last seen by me in August 2017. He was diagnosed with prostate cancer in 2006 but has elected for observation. His last PSA was 12.23 in 06/2017 and this was lower than it had been in 2015. He has a history of chronic incomplete bladder emptying and when last seen by me was taking Flomax 0.4 mg twice a day. His postvoid residual in 05/17 was 344 cc. He apparently had a catheter inserted sometime in December but it's unclear whether he is had a voiding trial since then. Tentative plans have been for the patient to be discharged to an extended care facility for additional antibiotic treatment. 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 Recently hospitalized with urinary infection. And then was placed into extended care. Appears this has not been a long-term situation. Smoking Status: Former smoker Past Alcohol Use History: None Reported Past Drug Use History: None Reported - Past Family History Brother(s) Family Medical History: Cancer Medications and Allergies Home Medications Medication Instructions Recorded Confirmed Type Acetaminophen [Tylenol] 650 mg PO Q6H PRN 03/07/18 03/07/18 History Aspirin EC [Ecotrin Low Dose] 81 mg PO HS 01/05/18 01/05/18 History Atorvastatin [Lipitor] 20 mg PO HS 01/05/18 01/05/18 History Baclofen [Lioresal] 10 mg PO TID@0500,1300,2100 01/05/18 01/05/18 History Carvedilol [Coreg] 25 mg PO BID 01/05/18 01/05/18 History Citalopram Hydrobromide [CeleXA] 20 mg PO DAILY 01/05/18 01/05/18 History Dapagliflozin Propanediol [Farxiga] 10 mg PO DAILY 01/05/18 01/05/18 History Dermaseptin 1 applic TOPICAL TID 01/05/18 01/05/18 History Diclofenac Sodium/Misoprostol 1 tab PO BID 01/05/18 01/05/18 History [Arthrotec 75 mg-200 Mcg Tab] Docusate [Colace] 100 mg PO BID 01/05/18 01/05/18 History Donepezil [Aricept] 20 mg PO HS 01/05/18 01/05/18 History Famotidine [Pepcid] 20 mg PO DAILY 01/05/18 01/05/18 History Gabapentin [Neurontin] 100 mg PO BID 01/05/18 01/05/18 History HYDROcodone/APAP 10-325MG [Paulina 1 tab PO Q6H PRN 01/05/18 01/05/18 History 10-325] Insulin Regular, Human [NovoLIN R] See Protocol SQ ACHS@06,11,16,20 01/05/1805/18 History Ipratropium-Albuterol Nebulize 3 ml INHALATION RT-Q4H PRN 01/05/18 01/05/18 History [Duoneb 0.5 mg-3 mg/3 ml Soln] LORazepam [Ativan] 0.5 mg PO Q6H PRN 01/05/18 01/05/18 History Lidocaine [Lidoderm 5% Patch] 1 patch TRANSDERM DAILY@0500 01/05/18 01/05/18 History Losartan Potassium 100 mg PO DAILY 01/05/18 01/05/18 History Magnesium 200 mg PO HS 01/05/18 01/05/18 History Melatonin 5 mg PO HS@199901/05/18 01/05/18 History Menthol [Biofreeze] 1 applic TOPICAL TID 01/05/18 01/05/18 History Tamsulosin HCl [Flomax] 0.4 mg PO HS 01/05/18 01/05/18 History amLODIPine [Norvasc] 10 mg PO DAILY 01/05/18 01/05/18 History fentaNYL 25MCG/HR PATCH [Duragesic 1 patch TRANSDERM Q72H 01/05/18 01/05/18 History 25MCG/HR] traZODone HCL [Desyrel] 50 mg PO HS@199901/05/18 01/05/18 History Allergies Allergy/AdvReac Type Severity Reaction Status Date / Time ciprofloxacin [From Cipro] Allergy Unknown Verified 01/05/18 10:34 Surgical - Exam Vital Signs Temp Pulse Resp BP Pulse Ox 98.9 F 68 20 97/54 95 01/05/18 10:20 01/05/18 10:20 01/05/18 10:20 01/05/18 10:20 01/05/18 10:20 - General well developed, well nourished, obese - Respiratory normal respiratory effort - Abdomen Abdomen: soft, tender, no organomegaly, distended - Genitourinary normal penis with no external lesions, testicles present, other (Lazcano catheter is in place and is draining grossly clear urine) - Psychiatric other (Poor memory) Results - Labs 01/06/18 08:47 01/06/18 08:47 Abnormal Lab Results - Last 24 Hours (Table) 01/07/18 01/07/18 01/08/18 Range/Units 12:18 17:18 06:57 POC Glucose (mg/dL) 133 H 163 H 148 H (75-99) mg/dL Microbiology - Last 24 Hours (Table) 01/05/18 10:49 Urine Culture - Final Urine,Catheterized Escherichia coli Acinetobacter anastacio/haemol 01/05/18 10:49 Blood Culture - Preliminary Blood No Growth after 48 hours Assessment and Plan (1) Urinary retention Narrative/Plan: The patient has had chronic incomplete bladder emptying and it is likely that his urinary retention is related to underlying BPH. It's unclear whether the patient's catheter was placed due to a history of incontinence or urinary retention. The patient is currently being treated for a catheter associated urinary tract infection which may been related to his recent mental confusion. I would suggest removing catheter on the morning of 01/10 for a voiding trial. If the patient remains unable to void or if his postvoid residual is over 500 mL then his catheter should be replaced. The patient is at increased risk for any type of surgical procedure like TURP due to his multiple medical comorbidities. Current Visit: Yes Status: Acute Code(s): R33.9 - RETENTION OF URINE, UNSPECIFIED SNOMED Code(s): 282428912
[2018-01-08 12:14] LABS: Glucose,Whole Blood 231 mg/dL (75-99)
[2018-01-08] MEDS: MULTIVITAMINS, THERA 1 EACH TAB PO SCH (12:33)
[2018-01-08 17:31] LABS: Glucose,Whole Blood 128 mg/dL (75-99)
[2018-01-08] MEDS: traZODone HCL 50 MG TAB PO SCH (19:39)
[2018-01-08] MEDS: MAGNESIUM OXIDE 400 MG TAB PO SCH (19:39)
[2018-01-08] MEDS: MELATONIN 5 MG TABLET PO SCH (19:40)
[2018-01-08] MEDS: ATORVASTATIN 20 MG TAB PO SCH (19:40)
[2018-01-08] MEDS: TAMSULOSIN 0.4 MG CAP.ER.24H PO SCH (19:40)
[2018-01-08] MEDS: ASPIRIN 81 MG PO SCH (19:40)
[2018-01-08] MEDS: DONEPEZIL 10 MG TAB PO SCH (19:40)
--- NOTE | 2018-01-08 22:26 | P.PN ---
Subjective Progress Note Date: 01/08/18 Principal diagnosis: Altered mental status 77-year-old male presents to Hospital from the extended care facility with alteration of his mental status. This 77-year-old gentleman has underlying dementia and was recently hospitalized an outside hospital where he was found evidence of urinary retention as well as urinary tract infection. It is related that he was treated for his urinary infection but apparently developed pressure ulcerations. The pressure ulcerations of his coccyx and buttocks are present on admission. It this time the patient is supine and comfortable. He is able to speak with her quality of his speech is poor and content. He does not seem to be very uncomfortable. Was not able to follow most commands. Patient however is not in wilma distress. 01/07/2018 the patient is somewhat uncomfortable still. He has 2 daughters present who will ensure that he gets his meal and this evening. He's been complaining of pain of some agitation. They're aware of his progressive dementia and the overall impact this has on his quality of life. 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 01/08/2018 patient remains uncomfortable. Daughter and son-in-law are present. The patient complains of his back pain. Despite current medications during the visit he goes from a sitting to standing position at least 10 times to relieve his back pain. He does seem to be quite miserable despite his patch, with his dementia he is very difficult to communicate with Objective - Vital Signs Vital signs: Vital Signs Temp 97.4 F L 01/08/18 15:00 Pulse 74 01/08/18 15:00 Resp 18 01/08/18 15:00 BP 130/62 01/08/18 15:00 Pulse Ox 93 L 01/08/18 15:00 Intake & Output 01/08/18 01/08/18 01/09/18 06:59 18:59 07:59 Intake Total 200 200 Output Total 800 1300 Balance -600 -1100 Weight 68.039 kg 68.039 kg Intake: Intake, IV Titration 200 Amount Meropenem 1 gm In Sodium 200 Chloride 0.9% 100 ml @ 100 mls/hr IVPB Q8HR [facility] Rx#:[id number] Oral 200 Output: Urine 800 1300 Other: Voiding Method Indwelling Catheter Indwelling Catheter # Voids 2 0 - Exam 77-year-old male in no distress, HEENT: Anicteric, conjunctiva are pink and moist, nasal or oral mucosa are without lesion. The neck is supple without lymphadenopathy or thyromegaly. No oral thrush is noted. Oral mucosa is slightly dry but no oral lesions are seen Lungs: Symmetrical air entry is noted, expiratory scattered wheezes are heard but no bronchial sounds or egophony noted Heart: Regular rate and rhythm with an audible S1-S2, no S3 loud S4 noted. No significant murmur click or rub noted. Abdomen: Positive bowel sounds, soft and nontender, there is no palpable masses or organomegaly. Abdomen is without guarding or rebound. Extremities:Upper extremities reveal evidence of equal pulses, no lesions are seen, no petechiae or telangiectasia. The lower extremities have no significant edema, peripheral pulses were 2+ and symmetric, no lesions or ulcerations are seen. Capillary refill was brisk. Skin: No significant rashes are seen. The patient does have evidence of pressure ulceration on the buttocks area. The more superior ulceration measures at 4 x 3.5 but has eschar and is non-stable, more distally the 3 x 2 x 0.2 cm ulceration has just some scant drainage. Neither one were very tender to manipulation. Neuro:Awake and alert, oriented to person only. As far as following commands opened his mouth when requested but didn't follow any other commands correctly and could not assist at all on rolling to his side. Musculoskeletal: Patient is with generalized weakness No acute joint effusions are noted. Lymph: No cervical, supraclavicular, axillary, epitrochlear, or inguinal lymphadenopathy was noted. - Labs CBC & Chem 7: 01/06/18 08:47 01/06/18 08:47 Labs: Abnormal Lab Results - Last 24 Hours (Table) 01/08/18 01/08/18 01/08/18 Range/Units 06:57 11:51 17:29 POC Glucose (mg/dL) 148 H 231 H 128 H (75-99) mg/dL Microbiology - Last 24 Hours (Table) 01/05/18 10:49 Blood Culture - Preliminary Blood No Growth after 72 hours 01/05/18 10:49 Urine Culture - Final Urine,Catheterized Escherichia coli Acinetobacter anastacio/haemol Laboratory Results WBC 8.2 k/uL (3.8-10.6) 01/06/18 08:47 RBC 3.49 m/uL (4.30-5.90) L 01/06/18 08:47 Hgb 10.6 gm/dL (13.0-17.5) L 01/06/18 08:47 Hct 31.9 % (39.0-53.0) L 01/06/18 08:47 MCV 91.4 fL (80.0-100.0) 01/06/18 08:47 MCH 30.3 pg (25.0-35.0) 01/06/18 08:47 MCHC 33.2 g/dL (31.0-37.0) 01/06/18 08:47 RDW 15.1 % (11.5-15.5) 01/06/18 08:47 Plt Count 210 k/uL (150-450) 01/06/18 08:47 Neutrophils % 81 % 01/06/18 08:47 Lymphocytes % 6 % 01/06/18 08:47 Monocytes % 9 % 01/06/18 08:47 Eosinophils % 1 % 01/06/18 08:47 Basophils % 0 % 01/06/18 08:47 Neutrophils # 6.7 k/uL (1.3-7.7) 01/06/18 08:47 Lymphocytes # 0.5 k/uL (1.0-4.8) L 01/06/18 08:47 Monocytes # 0.7 k/uL (0-1.0) 01/06/18 08:47 Eosinophils # 0.1 k/uL (0-0.7) 01/06/18 08:47 Basophils # 0.0 k/uL (0-0.2) 01/06/18 08:47 Poikilocytosis Slight 01/06/18 08:47 Sodium 143 mmol/L (137-145) 01/06/18 08:47 Potassium 3.7 mmol/L (3.5-5.1) 01/06/18 08:47 Chloride 109 mmol/L (98-107) H 01/06/18 08:47 Carbon Dioxide 27 mmol/L (22-30) 01/06/18 08:47 Anion Gap 7 mmol/L 01/06/18 08:47 BUN 19 mg/dL (9-20) 01/06/18 08:47 Creatinine 0.96 mg/dL (0.66-1.25) 01/06/18 08:47 Est GFR (CKD-EPI)AfAm 88 (>60 ml/min/1.73 sqM) 01/06/18 08:47 Est GFR (CKD-EPI)NonAf 76 (>60 ml/min/1.73 sqM) 01/06/18 08:47 Glucose 170 mg/dL (74-99) H 01/06/18 08:47 POC Glucose (mg/dL) 128 mg/dL (75-99) H 01/08/18 17:29 POC Glu Architectural Manager ID 01/08/18 17:29 Plasma Lactic Acid [place] 0.8 mmol/L (0.7-2.0) 01/05/18 10:49 Calcium 8.3 mg/dL (8.4-10.2) L 01/06/18 08:47 Magnesium 1.8 mg/dL (1.6-2.3) 01/05/18 10:49 Total Bilirubin 0.9 mg/dL (0.2-1.3) 01/05/18 10:49 AST 18 U/L (17-59) 01/05/18 10:49 ALT 33 U/L (21-72) 01/05/18 10:49 Alkaline Phosphatase 96 U/L (38-126) 01/05/18 10:49 Ammonia 16 umol/L (<30) 01/05/18 10:49 Total Creatine Kinase 36 U/L (55-170) L 01/05/18 10:49 CK-MB (CK-2) 0.7 ng/mL (0.0-2.4) 01/05/18 10:49 CK-MB (CK-2) Rel Index 1.9 01/05/18 10:49 Total Protein 5.4 g/dL (6.3-8.2) L 01/05/18 10:49 Albumin 2.6 g/dL (3.5-5.0) L 01/05/18 10:49 Urine Color Yellow 01/05/18 10:49 Urine Appearance Cloudy (Clear) 01/05/18 10:49 Urine pH 6.0 (5.0-8.0) 01/05/18 10:49 Ur Specific [place] 1.017 (1.001-1.035) 01/05/18 10:49 Urine Protein 1+ (Negative) H 01/05/18 10:49 Urine Glucose (UA) 4+ (Negative) H 01/05/18 10:49 Urine Ketones Negative (Negative) 01/05/18 10:49 Urine Blood Small (Negative) H 01/05/18 10:49 Urine Nitrite Positive (Negative) 01/05/18 10:49 Urine Bilirubin Negative (Negative) 01/05/18 10:49 Urine Urobilinogen <2.0 mg/dL (<2.0) 01/05/18 10:49 Ur Leukocyte Esterase Large (Negative) H 01/05/18 10:49 Urine RBC 5 /hpf (0-5) 01/05/18 10:49 Urine WBC 81 /hpf (0-5) H 01/05/18 10:49 Urine WBC Clumps Few /hpf (None) H 01/05/18 10:49 Microbiology 01/05/18 10:49 Blood Blood Culture - Preliminary No Growth after 72 hours 01/05/18 10:49 Urine,Catheterized Urine Culture - Final Escherichia coli Acinetobacter anastacio/haemol Assessment and Plan (1) Urinary tract infection Narrative/Plan: 77-year-old male presents from the extended care facility with alteration of his mental status and increasing weakness. It is related the patient has had a decline of his status as of late. He does have underlying dementia and was recently hospitalized an outside facility where he was on evidence of urinary tract infection. This was treated and he was released to extended care facility. Apparently there is been difficulties with his mobility and he now has present on admission ulceration to his left buttocks as above. Collagenase will be applied to the unstageable ulcer #1 of the buttocks and the opticell foam to the stage III that is distal to the ulcer #1. Antibiotic therapy is currently with Zosyn and we await the final cultures to further de- escalate antibiotic therapy, however is an adequate choice at this time given that he has been an extended care facility there is some concerns for more resistant pathogens. Enhance glucose control and improve protein will all be helpful in his wound healing. Multivitamin will be added. Air mattress overlay . 01/07/2018 the patient remained somewhat uncomfortable. Wound care is continuing without acute difficulty. Urine culture is now available and we'll alter antibiotic therapy from Zosyn to meropenem for his ESBL ecoli and acientobacter isolated from the urine. Will be going back to extended care to complete his course of antibiotic therapy when he is improved. Family aware of his declining status. 01/08/2018 the patient remains uncomfortable it is noted that the patient arises from the sitting to standing position nearly 10 times during the evaluation, his family was present relates this is going on throughout the day despite his current medications. He is tolerating the meropenem well. Planning 10 days when he has back to the extended care facility. His prognosis is very poor. Current Visit: Yes Status: Acute Code(s): N39.0 - URINARY TRACT INFECTION, SITE NOT SPECIFIED SNOMED Code(s): 10813586 (2) Gram negative sepsis Current Visit: Yes Status: Acute Code(s): A41.50 - GRAM-NEGATIVE SEPSIS, UNSPECIFIED SNOMED Code(s): 937462547 (3) Unstageable pressure ulcer of left buttock Current Visit: Yes Status: Acute Code(s): L89.320 - PRESSURE ULCER OF LEFT BUTTOCK, UNSTAGEABLE SNOMED Code(s): 585635002 (4) Stage III pressure ulcer of left buttock Current Visit: Yes Status: Acute Code(s): L89.323 - PRESSURE ULCER OF LEFT BUTTOCK, STAGE 3 SNOMED Code(s): 613166754
[2018-01-08 23:30] LABS: Glucose,Whole Blood 183 mg/dL (75-99)
--- NOTE | 2018-01-09 00:31 | P.PN ---
Subjective Progress Note Date: 01/07/18 Principal diagnosis: Urinary tract infection Patient is a 77-year-old male with a known history of dementia, hypertension, hyperlipidemia, diabetes type 2 insulin-dependent and poor functional status was brought from [facility] with complaints of decreased level of consciousness. Patient was recently at [facility] and was [facility] Wednesday. Patient had urinary retention during previous admission and was placed on indwelling catheter before discharging to [facility]. Patient also developed stage II decub ulcers. Due to confusion and lethargy and patient was sent to hospital for possible decubitus infection. Patient also had fever, tremors and tachycardic Otherwise patient denied any cough or sputum production. No complaints of chest pain. No shortness of breath. Patient does have indwelling catheter with leg bag currently. 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 Chest x-ray showed correlate for bronchitis. UA showed 4+ glucose. Large leukocyte esterase and WBC count 8.1 01/06/2018 Patient is a poor historian. Denied any chest pain or shortness of breath. Otherwise patient is trying to get to the bed. Sitter is at bedside. ID consult is pending at this time. Urine culture showed gram-negative bacilli. No fever no chills otherwise. Tolerating oral diet. No other acute overnight issues. 01/07/2018 Patient is still agitated and is trying to get out of bed. Urine culture showed gram-negative bacilli and final culture report is not there yet. Otherwise patient is afebrile. Continues to be on Lazcano catheter. Urology has seen the patient and recommended trial void possibly on Wednesday. ID is following. Patient is otherwise tolerating oral diet. No other acute overnight issues. Family is at bedside and updated his medical condition in detail. Patient is still complaining of back pain. Complete review of systems could not be apparent from the patient Current medications reviewed Objective - Vital Signs Vital signs: Vital Signs Temp 100.1 F H 01/07/18 15:00 Pulse 80 01/07/18 15:00 Resp 16 01/07/18 15:00 BP 116/59 01/07/18 15:00 Pulse Ox 96 01/07/18 15:00 Intake & Output 01/07/18 01/07/18 01/08/18 06:59 18:59 06:59 Output Total 1000 1100 Balance -1000 -1100 Output: Urine 1000 1100 Other: Voiding Method Indwelling Catheter Indwelling Catheter # Bowel Movements 1 - Exam Patient is lying in the bed comfortably, no acute distress, awake alert but confused and agitated HEENT: Normocephalic. Neck is supple. Pupils reactive. Nostrils clear. Oral cavity is moist. Ears reveal no drainage. Neck reveals no JVD, carotid bruits, or thyromegaly. CHEST EXAMINATION: Trachea is central. Symmetrical expansion. Diminished bilateral air entry. No wheezing no rhonchi. CARDIAC: Normal S1, S2 with no gallops. No murmurs ABDOMEN: Soft. Bowel sounds normal. No organomegaly. No abdominal bruits. Extremities: reveal no edema. No clubbing or cyanosis Neurologically awake, alert and oriented 1 with well-coordinated movements. No focal deficits noted Skin: No rash . Patient does have stage II decub ulcers in the sacral area with no discharge or foul-smelling Psychiatric: Could not be assessed completely Musculoskeletal: No joint swelling or deformity. Normal range of motion. - Labs CBC & Chem 7: 01/06/18 08:47 01/06/18 08:47 Labs: Abnormal Lab Results - Last 24 Hours (Table) 01/06/18 01/07/18 01/07/18 Range/Units 21:32 07:29 12:18 POC Glucose (mg/dL) 155 H 166 H 133 H (75-99) mg/dL 01/07/18 Range/Units 17:18 POC Glucose (mg/dL) 163 H (75-99) mg/dL Microbiology - Last 24 Hours (Table) 01/05/18 10:49 Urine Culture - Final Urine,Catheterized Escherichia coli Acinetobacter anastacio/haemol 01/05/18 10:49 Blood Culture - Preliminary Blood No Growth after 48 hours Assessment and Plan Assessment: Acute urinary tract infection. Complicated likely related to Lazcano catheter Altered mental status. Possible metabolic encephalopathy due to infection.. Improving Stage II sacral decubitus ulcers. Dementia Poor functional status Hypertension Diabetes type 2 Recent urinary retention at outside hospital, currently on Lazcano catheter History of chronic back pain from remote injury DVT prophylaxis Plan: Patient will be continued on antibiotics in the form of Zosyn. Follow-up urine culture and blood culture. Wound care for decubitus ulcers. Continue with home medications and insulin dosing. ID was consulted for further evaluation. Prognosis is guarded with multiple medical problems and comorbid conditions. Time with Patient: Greater than 30
--- NOTE | 2018-01-09 00:36 | P.PN ---
Subjective Progress Note Date: 01/08/18 Principal diagnosis: Urinary tract infection Patient is a 77-year-old male with a known history of dementia, hypertension, hyperlipidemia, diabetes type 2 insulin-dependent and poor functional status was brought from [facility] with complaints of decreased level of consciousness. Patient was recently at [facility] and was transferred to [facility] on last Wednesday. Patient had urinary retention during previous admission and was placed on indwelling catheter before discharging to alf. Patient also developed stage II decub ulcers. Due to confusion and lethargy and patient was sent to hospital for possible decubitus infection. Patient also had fever, tremors and tachycardic Otherwise patient denied any cough or sputum production. No complaints of chest pain. No shortness of breath. Patient does have indwelling catheter with leg bag currently. 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 Chest x-ray showed correlate for bronchitis. UA showed 4+ glucose. Large leukocyte esterase and WBC count 8.1 01/06/2018 Patient is a poor historian. Denied any chest pain or shortness of breath. Otherwise patient is trying to get to the bed. Sitter is at bedside. ID consult is pending at this time. Urine culture showed gram-negative bacilli. No fever no chills otherwise. Tolerating oral diet. No other acute overnight issues. 01/07/2018 Patient is still agitated and is trying to get out of bed. Urine culture showed gram-negative bacilli and final culture report is not there yet. Otherwise patient is afebrile. Continues to be on Lazcano catheter. Urology has seen the patient and recommended trial void possibly on Wednesday. ID is following. Patient is otherwise tolerating oral diet. No other acute overnight issues. Family is at bedside and updated his medical condition in detail. Patient is still complaining of back pain. 01/08/2018 Patient is more awake and oriented today. Able to sit in the chair. Otherwise still complaining of back pain despite being on fentanyl patch and lidocaine patch and [place] 10. Urine cultures showed ESBL E. coli and a a Acinetobactor Anastacio. Antibiotics have been changed to meropenem as per ID recommendations. Patient has been afebrile. Urology has seen the patient. Otherwise no acute overnight issues. Complete review of systems could not be apparent from the patient Current medications reviewed Objective - Vital Signs Vital signs: Vital Signs Temp 97.4 F L 01/08/18 15:00 Pulse 74 01/08/18 15:00 Resp 18 01/08/18 15:00 BP 130/62 01/08/18 15:00 Pulse Ox 93 L 01/08/18 15:00 Intake & Output 01/08/18 01/08/18 01/09/18 06:59 18:59 07:59 Intake Total 200 200 Output Total 800 1300 Balance -600 -1100 Weight 68.039 kg 68.039 kg Intake: Intake, IV Titration 200 Amount Meropenem 1 gm In Sodium 200 Chloride 0.9% 100 ml @ 100 mls/hr IVPB Q8HR [facility] Rx#:[id number] Oral 200 Output: Urine 800 1300 Other: Voiding Method Indwelling Catheter Indwelling Catheter # Voids 2 0 - Exam Patient is lying in the bed comfortably, no acute distress, awake alert but confused and agitated HEENT: Normocephalic. Neck is supple. Pupils reactive. Nostrils clear. Oral cavity is moist. Ears reveal no drainage. Neck reveals no JVD, carotid bruits, or thyromegaly. CHEST EXAMINATION: Trachea is central. Symmetrical expansion. Diminished bilateral air entry. No wheezing no rhonchi. CARDIAC: Normal S1, S2 with no gallops. No murmurs ABDOMEN: Soft. Bowel sounds normal. No organomegaly. No abdominal bruits. Extremities: reveal no edema. No clubbing or cyanosis Neurologically awake, alert and oriented 1 with well-coordinated movements. No focal deficits noted Skin: No rash . Patient does have stage II decub ulcers in the sacral area with no discharge or foul-smelling Psychiatric: Could not be assessed completely Musculoskeletal: No joint swelling or deformity. Normal range of motion. - Labs CBC & Chem 7: 01/06/18 08:47 01/06/18 08:47 Labs: Abnormal Lab Results - Last 24 Hours (Table) 01/08/18 01/08/18 01/08/18 Range/Units 06:57 11:51 17:29 POC Glucose (mg/dL) 148 H 231 H 128 H (75-99) mg/dL Microbiology - Last 24 Hours (Table) 01/05/18 10:49 Blood Culture - Preliminary Blood No Growth after 72 hours 01/05/18 10:49 Urine Culture - Final Urine,Catheterized Escherichia coli Acinetobacter anastacio/haemol Assessment and Plan Assessment: Acute urinary tract infection. Complicated likely related to Lazcano catheter E. coli and Acinetobacter UTI Altered mental status. Possible metabolic encephalopathy due to infection.. Improving Stage II sacral decubitus ulcers. Dementia Poor functional status Hypertension Diabetes type 2 Recent urinary retention at outside hospital, currently on Lazcano catheter History of chronic back pain from remote injury DVT prophylaxis Plan: Antibiotics changed to meropenem. Pain management with [place] 10, fentanyl patch and lidocaine patch. Wound care for decubitus ulcers. Continue with home medications and insulin dosing. ID is following. Prognosis is guarded with multiple medical problems and comorbid conditions. Trial void possibly on Wednesday Possible transfer to rehab once clinically improved Time with Patient: Greater than 30
[2018-01-09] MEDS: LIDOCAINE 5% PATCH TOPICAL SCH (05:53)
[2018-01-09] MEDS: BACLOFEN 10 MG TAB PO SCH ×3 (06:26→20:31)
[2018-01-09 08:41] LABS: Glucose,Whole Blood 157 mg/dL (75-99)
[2018-01-09] MEDS: CALAMINE/ZINC OXIDE LOTION 177 ML BTL TOPICAL SCH ×3 (09:00→20:37)
[2018-01-09] MEDS: GABAPENTIN 100 MG CAP PO SCH ×2 (09:14→20:31)
[2018-01-09] MEDS: LOSARTAN 50 MG TAB PO SCH (09:14)
[2018-01-09] MEDS: amLODIPine 10 MG TAB PO SCH (09:14)
[2018-01-09] MEDS: LORazepam 0.5 MG TAB PO PRN ×3 (09:14→22:33)
[2018-01-09] MEDS: FAMOTIDINE 20 MG TAB PO SCH (09:14)
[2018-01-09] MEDS: HYDROcodone/APAP 10-325MG 1 EACH TAB PO PRN ×3 (09:14→22:32)
[2018-01-09] MEDS: Dapagliflozin Propanediol [Farxiga] PO SCH (09:15)
[2018-01-09] MEDS: CARVEDILOL 12.5 MG TAB PO SCH ×2 (09:15→19:01)
[2018-01-09] MEDS: CITALOPRAM HYDROBROMIDE 20 MG TAB PO SCH (09:15)
[2018-01-09] MEDS: INSULIN ASPART 100 UNIT/ML 1 ML 10 ML VIAL SQ SCH ×4 (09:17→22:16)
[2018-01-09] MEDS: MEROPENEM 1 GM in SODIUM CHLORIDE 0.9% 100 ML IVPB SCH ×2 (09:17→19:00)
[2018-01-09] MEDS: HEPARIN SODIUM,PORCINE 5,000 UNIT/ML 1 ML VIAL SQ SCH ×2 (09:17→22:14)
[2018-01-09 10:13] LABS: Basophils % (A) 0 %; Eosinophils # (A) 0.2 k/uL (0-0.7); Eosinophils % (A) 2 %; HCT 32.7 % (39.0-53.0); HGB 10.7 gm/dL (13.0-17.5); Hypochromasia Slight; Lymphocytes # (A) 0.3 k/uL (1.0-4.8); Lymphocytes % (A) 4 %; MCH 29.6 pg (25.0-35.0); MCHC 32.8 g/dL (31.0-37.0); MCV 90.2 fL (80.0-100.0); Mean Platelet Volume 6.8; Monocytes # (A) 0.6 k/uL (0-1.0); Monocytes % (A) 7 %; Neutrophils # (A) 7.8 k/uL (1.3-7.7); Neutrophils % (A) 84 %; Platelet Count 199 k/uL (150-450); Poikilocytosis Slight; RBC 3.62 m/uL (4.30-5.90); RDW 14.8 % (11.5-15.5); WBC 9.2 k/uL (3.8-10.6)
[2018-01-09 10:16] LABS: Anion Gap 9 mmol/L; Blood Urea Nitrogen 16 mg/dL (9-20); Calcium 8.7 mg/dL (8.4-10.2); Carbon Dioxide 27 mmol/L (22-30); Chloride 106 mmol/L (98-107); Glucose 163 mg/dL (74-99); Potassium 3.7 mmol/L (3.5-5.1); Sodium 142 mmol/L (137-145)
[2018-01-09] MEDS: DOCUSATE 100 MG CAP PO SCH ×2 (13:31→22:14)
[2018-01-09 14:00] LABS: Glucose,Whole Blood 150 mg/dL (75-99)
[2018-01-09] MEDS: MULTIVITAMINS, THERA 1 EACH TAB PO SCH (14:16)
[2018-01-09] MEDS: COLLAGENASE 250 UNIT/GM OINTMENT 30 GM TUBE TOPICAL SCH (14:18)
[2018-01-09 17:56] LABS: Glucose,Whole Blood 161 mg/dL (75-99)
[2018-01-09] MEDS: DONEPEZIL 10 MG TAB PO SCH (20:31)
[2018-01-09] MEDS: traZODone HCL 50 MG TAB PO SCH (20:31)
[2018-01-09] MEDS: MAGNESIUM OXIDE 400 MG TAB PO SCH (20:31)
[2018-01-09] MEDS: MELATONIN 5 MG TABLET PO SCH (20:31)
[2018-01-09] MEDS: ASPIRIN 81 MG PO SCH (20:31)
[2018-01-09] MEDS: ATORVASTATIN 20 MG TAB PO SCH (20:31)
[2018-01-09] MEDS: TAMSULOSIN 0.4 MG CAP.ER.24H PO SCH (20:32)
[2018-01-09] MEDS ORDERED: ONDANSETRON 4 MG/2 ML VIAL IVP PRN (20:40)
[2018-01-09 20:45] LABS: Glucose,Whole Blood 77 mg/dL (75-99)
[2018-01-09] MEDS: ACETAMINOPHEN TAB 325 MG TAB PO PRN (20:59)
[2018-01-10] MEDS: MEROPENEM 1 GM in SODIUM CHLORIDE 0.9% 100 ML IVPB SCH ×4 (01:18→23:30)
[2018-01-10] MEDS: LORazepam 0.5 MG TAB PO PRN ×3 (06:15→22:13)
[2018-01-10] MEDS: HYDROcodone/APAP 10-325MG 1 EACH TAB PO PRN ×3 (06:15→22:13)
[2018-01-10] MEDS: BACLOFEN 10 MG TAB PO SCH ×3 (06:17→20:09)
[2018-01-10] MEDS: LIDOCAINE 5% PATCH TOPICAL SCH (06:17)
[2018-01-10 07:28] LABS: Glucose,Whole Blood 116 mg/dL (75-99)
[2018-01-10] MEDS: amLODIPine 10 MG TAB PO SCH (09:07)
[2018-01-10] MEDS: CITALOPRAM HYDROBROMIDE 20 MG TAB PO SCH (09:07)
[2018-01-10] MEDS: FAMOTIDINE 20 MG TAB PO SCH (09:07)
[2018-01-10] MEDS: CARVEDILOL 12.5 MG TAB PO SCH ×2 (09:07→17:07)
[2018-01-10] MEDS: LOSARTAN 50 MG TAB PO SCH (09:07)
[2018-01-10] MEDS: INSULIN ASPART 100 UNIT/ML 1 ML 10 ML VIAL SQ SCH ×4 (09:08→22:08)
[2018-01-10] MEDS: GABAPENTIN 100 MG CAP PO SCH ×2 (09:09→20:08)
[2018-01-10] MEDS: CALAMINE/ZINC OXIDE LOTION 177 ML BTL TOPICAL SCH ×3 (09:10→20:19)
[2018-01-10] MEDS: COLLAGENASE 250 UNIT/GM OINTMENT 30 GM TUBE TOPICAL SCH (09:10)
[2018-01-10] MEDS: METHYL SALICYLATE/MENTHOL CREAM 5 OZ TOPICAL PRN (09:10)
[2018-01-10] MEDS: HEPARIN SODIUM,PORCINE 5,000 UNIT/ML 1 ML VIAL SQ SCH ×2 (09:57→20:18)
[2018-01-10] MEDS: DOCUSATE 100 MG CAP PO SCH (09:59)
[2018-01-10] MEDS: Dapagliflozin Propanediol [Farxiga] PO SCH (09:59)
[2018-01-10] MEDS ORDERED: LOPERAMIDE 2 MG CAP PO STA (10:52)
[2018-01-10] MEDS: MULTIVITAMINS, THERA 1 EACH TAB PO SCH (11:30)
[2018-01-10 12:28] LABS: Glucose,Whole Blood 131 mg/dL (75-99)
[2018-01-10] MEDS ORDERED: DOCUSATE 100 MG CAP PO PRN (15:00)
[2018-01-10 17:22] LABS: Glucose,Whole Blood 149 mg/dL (75-99)
[2018-01-10] MEDS: CHOLESTYRAMINE (WITH SUGAR) 4 GM PACKET PO SCH (18:58)
[2018-01-10] MEDS: traZODone HCL 50 MG TAB PO SCH (20:08)
[2018-01-10] MEDS: TAMSULOSIN 0.4 MG CAP.ER.24H PO SCH (20:08)
[2018-01-10] MEDS: MAGNESIUM OXIDE 400 MG TAB PO SCH (20:08)
[2018-01-10] MEDS: DONEPEZIL 10 MG TAB PO SCH (20:09)
[2018-01-10] MEDS: ATORVASTATIN 20 MG TAB PO SCH (20:09)
[2018-01-10] MEDS: ASPIRIN 81 MG PO SCH (20:10)
[2018-01-10] MEDS: MELATONIN 5 MG TABLET PO SCH (20:10)
[2018-01-10] MEDS: KETOROLAC 30 MG/ML 1 ML VIAL IVP SCH ×2 (20:16→23:40)
[2018-01-10 20:57] LABS: Glucose,Whole Blood 104 mg/dL (75-99)
--- NOTE | 2018-01-10 22:48 | P.PN ---
Subjective Progress Note Date: 01/09/18 Principal diagnosis: Urinary tract infection Patient is a 77-year-old male with a known history of dementia, hypertension, hyperlipidemia, diabetes type 2 insulin-dependent and poor functional status was brought from [facility] with complaints of decreased level of consciousness. Patient was recently at [facility] and was transferred to [facility] on last Wednesday. Patient had urinary retention during previous admission and was placed on indwelling catheter before discharging to alf. Patient also developed stage II decub ulcers. Due to confusion and lethargy and patient was sent to hospital for possible decubitus infection. Patient also had fever, tremors and tachycardic Otherwise patient denied any cough or sputum production. No complaints of chest pain. No shortness of breath. Patient does have indwelling catheter with leg bag currently. 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 Chest x-ray showed correlate for bronchitis. UA showed 4+ glucose. Large leukocyte esterase and WBC count 8.1 01/06/2018 Patient is a poor historian. Denied any chest pain or shortness of breath. Otherwise patient is trying to get to the bed. Sitter is at bedside. ID consult is pending at this time. Urine culture showed gram-negative bacilli. No fever no chills otherwise. Tolerating oral diet. No other acute overnight issues. 01/07/2018 Patient is still agitated and is trying to get out of bed. Urine culture showed gram-negative bacilli and final culture report is not there yet. Otherwise patient is afebrile. Continues to be on Lazcano catheter. Urology has seen the patient and recommended trial void possibly on Wednesday. ID is following. Patient is otherwise tolerating oral diet. No other acute overnight issues. Family is at bedside and updated his medical condition in detail. Patient is still complaining of back pain. 01/08/2018 Patient is more awake and oriented today. Able to sit in the chair. Otherwise still complaining of back pain despite being on fentanyl patch and lidocaine patch and [place] 10. Urine cultures showed ESBL E. coli and a a Acinetobactor Xu. Antibiotics have been changed to meropenem as per ID recommendations. Patient has been afebrile. Urology has seen the patient. Otherwise no acute overnight issues. 01/09/2018 Patient is able to sit in the chair today. More awake and alert. Otherwise still trying out of the bed. No fever no chills. Continued on antibiotics in the form of meropenem. Patient has been afebrile. Trial void once clinically improves. Complete review of systems could not be obtained from the patient Current medications reviewed Objective - Vital Signs Vital signs: Vital Signs Temp 99.0 F 01/09/18 15:00 Pulse 91 01/09/18 15:00 Resp 20 01/09/18 15:00 BP 128/68 01/09/18 15:00 Pulse Ox 97 01/09/18 15:00 Intake & Output 01/09/18 01/09/18 01/10/18 06:59 18:59 06:59 Intake Total 100 Output Total 7 Balance 93 Weight Intake: Oral 100 Output: Urine Uretheral (Lazcano) Stool 7 Other: Voiding Method Indwelling Catheter # Voids 3 # Bowel Movements 7 - Exam Patient is lying in the bed comfortably, no acute distress, awake alert but confused and agitated HEENT: Normocephalic. Neck is supple. Pupils reactive. Nostrils clear. Oral cavity is moist. Ears reveal no drainage. Neck reveals no JVD, carotid bruits, or thyromegaly. CHEST EXAMINATION: Trachea is central. Symmetrical expansion. Diminished bilateral air entry. No wheezing no rhonchi. CARDIAC: Normal S1, S2 with no gallops. No murmurs ABDOMEN: Soft. Bowel sounds normal. No organomegaly. No abdominal bruits. Extremities: reveal no edema. No clubbing or cyanosis Neurologically awake, alert and oriented 1 with well-coordinated movements. No focal deficits noted Skin: No rash . Patient does have stage II decub ulcers in the sacral area with no discharge or foul-smelling Psychiatric: Could not be assessed completely Musculoskeletal: No joint swelling or deformity. Normal range of motion. - Labs CBC & Chem 7: 01/09/18 09:08 01/09/18 09:08 Labs: Abnormal Lab Results - Last 24 Hours (Table) 01/08/18 01/09/18 01/09/18 Range/Units 23:04 08:20 09:08 RBC 3.62 L (4.30-5.90) m/uL Hgb 10.7 L (13.0-17.5) gm/dL Hct 32.7 L (39.0-53.0) % Neutrophils # 7.8 H (1.3-7.7) k/uL Lymphocytes # 0.3 L (1.0-4.8) k/uL Glucose (74-99) mg/dL POC Glucose (mg/dL) 183 H 157 H (75-99) mg/dL 01/09/18 01/09/18 01/09/18 Range/Units 09:08 13:57 17:11 RBC (4.30-5.90) m/uL Hgb (13.0-17.5) gm/dL Hct (39.0-53.0) % Neutrophils # (1.3-7.7) k/uL Lymphocytes # (1.0-4.8) k/uL Glucose 163 H (74-99) mg/dL POC Glucose (mg/dL) 150 H 161 H (75-99) mg/dL Microbiology - Last 24 Hours (Table) 01/05/18 10:49 Blood Culture - Preliminary Blood No Growth after 96 hours Assessment and Plan Assessment: Acute urinary tract infection. Complicated likely related to Lazcano catheter E. coli and Acinetobacter UTI Altered mental status. Possible metabolic encephalopathy due to infection.. Improving Stage II sacral decubitus ulcers. Dementia Poor functional status Hypertension Diabetes type 2 Recent urinary retention at outside hospital, currently on Lazcano catheter History of chronic back pain from remote injury DVT prophylaxis Plan: Antibiotics changed to meropenem. Pain management with [place] 10, fentanyl patch and lidocaine patch. Wound care for decubitus ulcers. Continue with home medications and insulin dosing. ID is following. Prognosis is guarded with multiple medical problems and comorbid conditions. Trial void possibly on Wednesday Possible transfer to rehab once clinically improved Time with Patient: Greater than 30
--- NOTE | 2018-01-10 22:50 | P.PN ---
Subjective Progress Note Date: 01/10/18 Principal diagnosis: Urinary tract infection Patient is a 77-year-old male with a known history of dementia, hypertension, hyperlipidemia, diabetes type 2 insulin-dependent and poor functional status was brought from [facility] with complaints of decreased level of consciousness. Patient was recently at [facility] and was transferred to [facility] on last Wednesday. Patient had urinary retention during previous admission and was placed on indwelling catheter before discharging to [facility]. Patient also developed stage II decub ulcers. Due to confusion and lethargy and patient was sent to hospital for possible decubitus infection. Patient also had fever, tremors and tachycardic Otherwise patient denied any cough or sputum production. No complaints of chest pain. No shortness of breath. Patient does have indwelling catheter with leg bag currently. 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 Chest x-ray showed correlate for bronchitis. UA showed 4+ glucose. Large leukocyte esterase and WBC count 8.1 01/06/2018 Patient is a poor historian. Denied any chest pain or shortness of breath. Otherwise patient is trying to get to the bed. Sitter is at bedside. ID consult is pending at this time. Urine culture showed gram-negative bacilli. No fever no chills otherwise. Tolerating oral diet. No other acute overnight issues. 01/07/2018 Patient is still agitated and is trying to get out of bed. Urine culture showed gram-negative bacilli and final culture report is not there yet. Otherwise patient is afebrile. Continues to be on Lazcano catheter. Urology has seen the patient and recommended trial void possibly on Wednesday. ID is following. Patient is otherwise tolerating oral diet. No other acute overnight issues. Family is at bedside and updated his medical condition in detail. Patient is still complaining of back pain. 01/08/2018 Patient is more awake and oriented today. Able to sit in the chair. Otherwise still complaining of back pain despite being on fentanyl patch and lidocaine patch and [place] 10. Urine cultures showed ESBL E. coli and a a Acinetobactor Xu. Antibiotics have been changed to meropenem as per ID recommendations. Patient has been afebrile. Urology has seen the patient. Otherwise no acute overnight issues. 01/09/2018 Patient is able to sit in the chair today. More awake and alert. Otherwise still trying out of the bed. No fever no chills. Continued on antibiotics in the form of meropenem. Patient has been afebrile. Trial void once clinically improves. 01/10/2018 Patient is having diarrhea today. C. diff toxin negative otherwise. Stool cultures and ova parasites was ordered. Otherwise patient is awake and alert. Could not provide much history. Patient has been afebrile otherwise. No nausea no vomiting. Denied any chest pain. Denied any back pain today as well. Complete review of systems could not be obtained from the patient Current medications reviewed Objective - Vital Signs Vital signs: Vital Signs Temp 98.9 F 01/10/18 14:53 Pulse 83 01/10/18 14:53 Resp 18 01/10/18 14:53 BP 133/61 01/10/18 14:53 Pulse Ox 98 01/10/18 14:53 Intake & Output 01/10/18 01/10/18 01/11/18 06:59 18:59 06:59 Output Total 600 325 Balance -600 -325 Output: Urine 600 325 Other: Voiding Method Indwelling Catheter Indwelling Catheter # Voids 1 # Bowel Movements 5 1 - Exam Patient is lying in the bed comfortably, no acute distress, awake alert but confused and agitated HEENT: Normocephalic. Neck is supple. Pupils reactive. Nostrils clear. Oral cavity is moist. Ears reveal no drainage. Neck reveals no JVD, carotid bruits, or thyromegaly. CHEST EXAMINATION: Trachea is central. Symmetrical expansion. Diminished bilateral air entry. No wheezing no rhonchi. CARDIAC: Normal S1, S2 with no gallops. No murmurs ABDOMEN: Soft. Bowel sounds normal. No organomegaly. No abdominal bruits. Extremities: reveal no edema. No clubbing or cyanosis Neurologically awake, alert and oriented 1 with well-coordinated movements. No focal deficits noted Skin: No rash . Patient does have stage II decub ulcers in the sacral area with no discharge or foul-smelling Psychiatric: Could not be assessed completely Musculoskeletal: No joint swelling or deformity. Normal range of motion. - Labs CBC & Chem 7: 01/09/18 09:08 01/09/18 09:08 Labs: Abnormal Lab Results - Last 24 Hours (Table) 01/10/18 01/10/18 01/10/18 Range/Units 07:07 11:42 17:15 POC Glucose (mg/dL) 116 H 131 H 149 H (75-99) mg/dL 01/10/18 Range/Units 20:55 POC Glucose (mg/dL) 104 H (75-99) mg/dL Microbiology - Last 24 Hours (Table) 01/05/18 10:49 Blood Culture - Preliminary Blood No Growth after 120 hours Assessment and Plan Assessment: Acute urinary tract infection. Complicated likely related to Lazcano catheter E. coli and Acinetobacter UTI Altered mental status. Possible metabolic encephalopathy due to infection.. Improving Stage II sacral decubitus ulcers. Dementia Poor functional status Hypertension Diabetes type 2 Recent urinary retention at outside hospital, currently on Lazcano catheter History of chronic back pain from remote injury. Pain fairly controlled DVT prophylaxis Plan: Antibiotics changed to meropenem. Pain management with [place] 10, fentanyl patch and lidocaine patch. Wound care for decubitus ulcers. Continue with home medications and insulin dosing. ID is following. Prognosis is guarded with multiple medical problems and comorbid conditions. Trial void once clinically stable Possible transfer to rehab once clinically improved Time with Patient: Greater than 30
--- NOTE | 2018-01-10 23:45 | P.PN ---
Subjective Progress Note Date: 01/10/18 Principal diagnosis: Altered mental status 77-year-old male presents to Hospital from the extended care facility with alteration of his mental status. This 77-year-old gentleman has underlying dementia and was recently hospitalized an outside hospital where he was found evidence of urinary retention as well as urinary tract infection. It is related that he was treated for his urinary infection but apparently developed pressure ulcerations. The pressure ulcerations of his coccyx and buttocks are present on admission. It this time the patient is supine and comfortable. He is able to speak with her quality of his speech is poor and content. He does not seem to be very uncomfortable. Was not able to follow most commands. Patient however is not in wilma distress. 01/07/2018 the patient is somewhat uncomfortable still. He has 2 daughters present who will ensure that he gets his meal and this evening. He's been complaining of pain of some agitation. They're aware of his progressive dementia and the overall impact this has on his quality of life. 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 01/08/2018 patient remains uncomfortable. Daughter and son-in-law are present. The patient complains of his back pain. Despite current medications during the visit he goes from a sitting to standing position at least 10 times to relieve his back pain. He does seem to be quite miserable despite his patch, with his dementia he is very difficult to communicate with 01/10/2018 patient continues to be uncomfortable. Continues to sit and stand consistently. Dementia remains a problem. The case is discussed with the nurse as far as the patient's obvious discomfort Objective - Vital Signs Vital signs: Vital Signs Temp 98.9 F 01/10/18 14:53 Pulse 83 01/10/18 14:53 Resp 18 01/10/18 14:53 BP 133/61 01/10/18 14:53 Pulse Ox 98 01/10/18 14:53 Intake & Output 01/10/18 01/10/18 01/11/18 06:59 18:59 06:59 Output Total 600 325 Balance -600 -325 Output: Urine 600 325 Other: Voiding Method Indwelling Catheter Indwelling Catheter # Voids 1 # Bowel Movements 5 1 - Exam 77-year-old male in no distress, HEENT: Anicteric, conjunctiva are pink and moist, nasal or oral mucosa are without lesion. The neck is supple without lymphadenopathy or thyromegaly. No oral thrush is noted. Oral mucosa is slightly dry but no oral lesions are seen Lungs: Symmetrical air entry is noted, expiratory scattered wheezes are heard but no bronchial sounds or egophony noted Heart: Regular rate and rhythm with an audible S1-S2, no S3 loud S4 noted. No significant murmur click or rub noted. Abdomen: Positive bowel sounds, soft and nontender, there is no palpable masses or organomegaly. Abdomen is without guarding or rebound. Extremities:Upper extremities reveal evidence of equal pulses, no lesions are seen, no petechiae or telangiectasia. The lower extremities have no significant edema, peripheral pulses were 2+ and symmetric, no lesions or ulcerations are seen. Capillary refill was brisk. Skin: No significant rashes are seen. The patient does have evidence of pressure ulceration on the buttocks area. The more superior ulceration measures at 4 x 3.5 but has eschar and is non-stable, more distally the 3 x 2 x 0.2 cm ulceration has just some scant drainage. Neither one were very tender to manipulation. Neuro:Awake and alert, oriented to person only. As far as following commands opened his mouth when requested but didn't follow any other commands correctly and could not assist at all on rolling to his side. Musculoskeletal: Patient is with generalized weakness No acute joint effusions are noted. Lymph: No cervical, supraclavicular, axillary, epitrochlear, or inguinal lymphadenopathy was noted. - Labs CBC & Chem 7: 01/09/18 09:08 01/09/18 09:08 Labs: Abnormal Lab Results - Last 24 Hours (Table) 01/10/18 01/10/18 01/10/18 Range/Units 07:07 11:42 17:15 POC Glucose (mg/dL) 116 H 131 H 149 H (75-99) mg/dL 01/10/18 Range/Units 20:55 POC Glucose (mg/dL) 104 H (75-99) mg/dL Microbiology - Last 24 Hours (Table) 01/05/18 10:49 Blood Culture - Preliminary Blood No Growth after 120 hours Laboratory Results WBC 9.2 k/uL (3.8-10.6) 01/09/18 09:08 RBC 3.62 m/uL (4.30-5.90) L 01/09/18 09:08 Hgb 10.7 gm/dL (13.0-17.5) L 01/09/18 09:08 Hct 32.7 % (39.0-53.0) L 01/09/18 09:08 MCV 90.2 fL (80.0-100.0) 01/09/18 09:08 MCH 29.6 pg (25.0-35.0) 01/09/18 09:08 MCHC 32.8 g/dL (31.0-37.0) 01/09/18 09:08 RDW 14.8 % (11.5-15.5) 01/09/18 09:08 Plt Count 199 k/uL (150-450) 01/09/18 09:08 Neutrophils % 84 % 01/09/18 09:08 Lymphocytes % 4 % 01/09/18 09:08 Monocytes % 7 % 01/09/18 09:08 Eosinophils % 2 % 01/09/18 09:08 Basophils % 0 % 01/09/18 09:08 Neutrophils # 7.8 k/uL (1.3-7.7) H 01/09/18 09:08 Lymphocytes # 0.3 k/uL (1.0-4.8) L 01/09/18 09:08 Monocytes # 0.6 k/uL (0-1.0) 01/09/18 09:08 Eosinophils # 0.2 k/uL (0-0.7) 01/09/18 09:08 Basophils # 0.0 k/uL (0-0.2) 01/09/18 09:08 Hypochromasia Slight 01/09/18 09:08 Poikilocytosis Slight 01/09/18 09:08 Sodium 142 mmol/L (137-145) 01/09/18 09:08 Potassium 3.7 mmol/L (3.5-5.1) 01/09/18 09:08 Chloride 106 mmol/L (98-107) 01/09/18 09:08 Carbon Dioxide 27 mmol/L (22-30) 01/09/18 09:08 Anion Gap 9 mmol/L 01/09/18 09:08 BUN 16 mg/dL (9-20) 01/09/18 09:08 Creatinine 0.80 mg/dL (0.66-1.25) 01/09/18 09:08 Est GFR (CKD-EPI)AfAm >90 (>60 ml/min/1.73 sqM) 01/09/18 09:08 Est GFR (CKD-EPI)NonAf 86 (>60 ml/min/1.73 sqM) 01/09/18 09:08 Glucose 163 mg/dL (74-99) H 01/09/18 09:08 POC Glucose (mg/dL) 104 mg/dL (75-99) H 01/10/18 20:55 POC Glu Cert Occupational Therapy Asst ID Reba Michaud 01/10/18 20:55 Plasma Lactic Acid [place] 0.8 mmol/L (0.7-2.0) 01/05/18 10:49 Calcium 8.7 mg/dL (8.4-10.2) 01/09/18 09:08 Magnesium 1.8 mg/dL (1.6-2.3) 01/05/18 10:49 Total Bilirubin 0.9 mg/dL (0.2-1.3) 01/05/18 10:49 AST 18 U/L (17-59) 01/05/18 10:49 ALT 33 U/L (21-72) 01/05/18 10:49 Alkaline Phosphatase 96 U/L (38-126) 01/05/18 10:49 Ammonia 16 umol/L (<30) 01/05/18 10:49 Total Creatine Kinase 36 U/L (55-170) L 01/05/18 10:49 CK-MB (CK-2) 0.7 ng/mL (0.0-2.4) 01/05/18 10:49 CK-MB (CK-2) Rel Index 1.9 01/05/18 10:49 Total Protein 5.4 g/dL (6.3-8.2) L 01/05/18 10:49 Albumin 2.6 g/dL (3.5-5.0) L 01/05/18 10:49 Urine Color Yellow 01/05/18 10:49 Urine Appearance Cloudy (Clear) 01/05/18 10:49 Urine pH 6.0 (5.0-8.0) 01/05/18 10:49 Ur Specific [place] 1.017 (1.001-1.035) 01/05/18 10:49 Urine Protein 1+ (Negative) H 01/05/18 10:49 Urine Glucose (UA) 4+ (Negative) H 01/05/18 10:49 Urine Ketones Negative (Negative) 01/05/18 10:49 Urine Blood Small (Negative) H 01/05/18 10:49 Urine Nitrite Positive (Negative) 01/05/18 10:49 Urine Bilirubin Negative (Negative) 01/05/18 10:49 Urine Urobilinogen <2.0 mg/dL (<2.0) 01/05/18 10:49 Ur Leukocyte Esterase Large (Negative) H 01/05/18 10:49 Urine RBC 5 /hpf (0-5) 01/05/18 10:49 Urine WBC 81 /hpf (0-5) H 01/05/18 10:49 Urine WBC Clumps Few /hpf (None) H 01/05/18 10:49 C. difficile (EIA) Intrp Negative (Negative) 01/09/18 22:12 Microbiology 01/05/18 10:49 Blood Blood Culture - Preliminary No Growth after 120 hours 01/05/18 10:49 Urine,Catheterized Urine Culture - Final Escherichia coli Acinetobacter anastacio/haemol Assessment and Plan (1) Urinary tract infection Narrative/Plan: 77-year-old male presents from the extended care facility with alteration of his mental status and increasing weakness. It is related the patient has had a decline of his status as of late. He does have underlying dementia and was recently hospitalized an outside facility where he was on evidence of urinary tract infection. This was treated and he was released to extended care facility. Apparently there is been difficulties with his mobility and he now has present on admission ulceration to his left buttocks as above. Collagenase will be applied to the unstageable ulcer #1 of the buttocks and the opticell foam to the stage III that is distal to the ulcer #1. Antibiotic therapy is currently with Zosyn and we await the final cultures to further de- escalate antibiotic therapy, however is an adequate choice at this time given that he has been an extended care facility there is some concerns for more resistant pathogens. Enhance glucose control and improve protein will all be helpful in his wound healing. Multivitamin will be added. Air mattress overlay . 01/07/2018 the patient remained somewhat uncomfortable. Wound care is continuing without acute difficulty. Urine culture is now available and we'll alter antibiotic therapy from Zosyn to meropenem for his ESBL ecoli and acientobacter isolated from the urine. Will be going back to extended care to complete his course of antibiotic therapy when he is improved. Family aware of his declining status. 01/08/2018 the patient remains uncomfortable it is noted that the patient arises from the sitting to standing position nearly 10 times during the evaluation, his family was present relates this is going on throughout the day despite his current medications. He is tolerating the meropenem well. Planning 10 days when he has back to the extended care facility. His prognosis is very poor. 01/10/2018 patient remains very uncomfortable. As noted has evidence of the infection that is ertapenem susceptible and this will be continued. Some enhance pain medication the patient's pain is not well controlled Current Visit: Yes Status: Acute Code(s): N39.0 - URINARY TRACT INFECTION, SITE NOT SPECIFIED SNOMED Code(s): 16450648 (2) Gram negative sepsis Current Visit: Yes Status: Acute Code(s): A41.50 - GRAM-NEGATIVE SEPSIS, UNSPECIFIED SNOMED Code(s): 415784917 (3) Unstageable pressure ulcer of left buttock Current Visit: Yes Status: Acute Code(s): L89.320 - PRESSURE ULCER OF LEFT BUTTOCK, UNSTAGEABLE SNOMED Code(s): 998109274 (4) Stage III pressure ulcer of left buttock Current Visit: Yes Status: Acute Code(s): L89.323 - PRESSURE ULCER OF LEFT BUTTOCK, STAGE 3 SNOMED Code(s): 650605499
[2018-01-11] MEDS: BACLOFEN 10 MG TAB PO SCH ×3 (06:33→21:42)
[2018-01-11] MEDS: KETOROLAC 30 MG/ML 1 ML VIAL IVP SCH ×4 (06:34→23:33)
[2018-01-11] MEDS: LIDOCAINE 5% PATCH TOPICAL SCH (06:36)
[2018-01-11 07:28] LABS: Glucose,Whole Blood 124 mg/dL (75-99)
[2018-01-11] MEDS: INSULIN ASPART 100 UNIT/ML 1 ML 10 ML VIAL SQ SCH ×4 (07:38→20:53)
[2018-01-11] MEDS: CARVEDILOL 12.5 MG TAB PO SCH ×2 (08:08→17:58)
[2018-01-11] MEDS: MEROPENEM 1 GM in SODIUM CHLORIDE 0.9% 100 ML IVPB SCH ×3 (08:08→23:32)
[2018-01-11] MEDS: amLODIPine 10 MG TAB PO SCH (08:08)
[2018-01-11] MEDS: CITALOPRAM HYDROBROMIDE 20 MG TAB PO SCH (08:08)
[2018-01-11] MEDS: LOSARTAN 50 MG TAB PO SCH (08:09)
[2018-01-11] MEDS: HEPARIN SODIUM,PORCINE 5,000 UNIT/ML 1 ML VIAL SQ SCH ×2 (08:09→21:40)
[2018-01-11] MEDS: GABAPENTIN 100 MG CAP PO SCH ×2 (08:09→21:42)
[2018-01-11] MEDS: FAMOTIDINE 20 MG TAB PO SCH (08:09)
[2018-01-11] MEDS: COLLAGENASE 250 UNIT/GM OINTMENT 30 GM TUBE TOPICAL SCH (08:41)
[2018-01-11] MEDS: CALAMINE/ZINC OXIDE LOTION 177 ML BTL TOPICAL SCH ×3 (08:41→21:44)
[2018-01-11] MEDS: Dapagliflozin Propanediol [Farxiga] PO SCH (08:42)
[2018-01-11 09:09] LABS: Anion Gap 7 mmol/L; Blood Urea Nitrogen 15 mg/dL (9-20); Calcium 8.1 mg/dL (8.4-10.2); Carbon Dioxide 28 mmol/L (22-30); Chloride 104 mmol/L (98-107); Glucose 116 mg/dL (74-99); Potassium 3.4 mmol/L (3.5-5.1); Sodium 139 mmol/L (137-145)
[2018-01-11] MEDS: CHOLESTYRAMINE (WITH SUGAR) 4 GM PACKET PO SCH ×2 (09:53→17:58)
[2018-01-11] MEDS: HYDROcodone/APAP 10-325MG 1 EACH TAB PO PRN ×3 (09:59→21:40)
[2018-01-11] MEDS: LORazepam 0.5 MG TAB PO PRN ×2 (09:59→21:40)
[2018-01-11 10:15] LABS: Basophils % (A) 0 %; Eosinophils # (A) 0.2 k/uL (0-0.7); Eosinophils % (A) 3 %; HGB 10.3 gm/dL (13.0-17.5); Hypochromasia Slight; Lymphocytes # (A) 0.7 k/uL (1.0-4.8); Lymphocytes % (A) 10 %; MCH 30.7 pg (25.0-35.0); MCHC 34.2 g/dL (31.0-37.0); MCV 89.7 fL (80.0-100.0); Mean Platelet Volume 6.7; Monocytes # (A) 0.6 k/uL (0-1.0); Monocytes % (A) 8 %; Neutrophils # (A) 5.4 k/uL (1.3-7.7); Neutrophils % (A) 76 %; Platelet Count 229 k/uL (150-450); Poikilocytosis Slight; RBC 3.34 m/uL (4.30-5.90); WBC 7.1 k/uL (3.8-10.6)
[2018-01-11] MEDS: MULTIVITAMINS, THERA 1 EACH TAB PO SCH (12:17)
[2018-01-11 12:18] LABS: Glucose,Whole Blood 174 mg/dL (75-99)
[2018-01-11] MEDS ORDERED: POTASSIUM CHLORIDE ER 20 MEQ TAB.ER PO STA (13:27)
[2018-01-11 17:49] LABS: Glucose,Whole Blood 106 mg/dL (75-99)
[2018-01-11] MEDS: LOPERAMIDE 2 MG CAP PO PRN (18:49)
[2018-01-11 20:49] LABS: Glucose,Whole Blood 112 mg/dL (75-99)
[2018-01-11] MEDS: MAGNESIUM OXIDE 400 MG TAB PO SCH (21:40)
[2018-01-11] MEDS: ATORVASTATIN 20 MG TAB PO SCH (21:40)
[2018-01-11] MEDS: traZODone HCL 50 MG TAB PO SCH (21:40)
[2018-01-11] MEDS: TAMSULOSIN 0.4 MG CAP.ER.24H PO SCH (21:40)
[2018-01-11] MEDS: ASPIRIN 81 MG PO SCH (21:41)
[2018-01-11] MEDS: MELATONIN 5 MG TABLET PO SCH (21:42)
[2018-01-11] MEDS: DONEPEZIL 10 MG TAB PO SCH (21:43)
[2018-01-11] MEDS: METHYL SALICYLATE/MENTHOL CREAM 5 OZ TOPICAL PRN (21:45)
[2018-01-12] MEDS: KETOROLAC 30 MG/ML 1 ML VIAL IVP SCH ×3 (06:46→18:35)
[2018-01-12] MEDS: LIDOCAINE 5% PATCH TOPICAL SCH (06:47)
[2018-01-12] MEDS: BACLOFEN 10 MG TAB PO SCH ×3 (06:47→20:54)
[2018-01-12 07:52] LABS: Glucose,Whole Blood 124 mg/dL (75-99)
[2018-01-12] MEDS: INSULIN ASPART 100 UNIT/ML 1 ML 10 ML VIAL SQ SCH ×4 (07:59→20:57)
[2018-01-12] MEDS: Dapagliflozin Propanediol [Farxiga] PO SCH (08:00)
[2018-01-12 09:01] LABS: HCT 31.8 % (39.0-53.0); HGB 10.5 gm/dL (13.0-17.5); Hypochromasia Slight; MCH 29.8 pg (25.0-35.0); MCV 90.5 fL (80.0-100.0); Mean Platelet Volume 6.7; Platelet Count 256 k/uL (150-450); Poikilocytosis Slight; RBC 3.51 m/uL (4.30-5.90)
[2018-01-12] MEDS: MEROPENEM 1 GM in SODIUM CHLORIDE 0.9% 100 ML IVPB SCH ×2 (09:11→15:28)
[2018-01-12] MEDS: HYDROcodone/APAP 10-325MG 1 EACH TAB PO PRN ×3 (09:12→20:59)
[2018-01-12] MEDS: LORazepam 0.5 MG TAB PO PRN ×3 (09:12→20:55)
[2018-01-12] MEDS: CHOLESTYRAMINE (WITH SUGAR) 4 GM PACKET PO SCH ×2 (09:13→18:34)
[2018-01-12] MEDS: CITALOPRAM HYDROBROMIDE 20 MG TAB PO SCH (09:14)
[2018-01-12] MEDS: HEPARIN SODIUM,PORCINE 5,000 UNIT/ML 1 ML VIAL SQ SCH ×2 (09:14→20:53)
[2018-01-12] MEDS: CARVEDILOL 12.5 MG TAB PO SCH ×2 (09:14→18:36)
[2018-01-12] MEDS: GABAPENTIN 100 MG CAP PO SCH ×2 (09:15→20:56)
[2018-01-12] MEDS: amLODIPine 10 MG TAB PO SCH (09:15)
[2018-01-12] MEDS: FAMOTIDINE 20 MG TAB PO SCH (09:15)
[2018-01-12] MEDS: COLLAGENASE 250 UNIT/GM OINTMENT 30 GM TUBE TOPICAL SCH (09:16)
[2018-01-12] MEDS: CALAMINE/ZINC OXIDE LOTION 177 ML BTL TOPICAL SCH ×3 (09:16→20:57)
[2018-01-12] MEDS: METHYL SALICYLATE/MENTHOL CREAM 5 OZ TOPICAL PRN ×2 (09:16→21:01)
[2018-01-12 09:19] LABS: Anion Gap 8 mmol/L; Blood Urea Nitrogen 15 mg/dL (9-20); Calcium 8.5 mg/dL (8.4-10.2); Carbon Dioxide 29 mmol/L (22-30); Chloride 106 mmol/L (98-107); Glucose 141 mg/dL (74-99); Potassium 4.1 mmol/L (3.5-5.1); Sodium 143 mmol/L (137-145)
[2018-01-12] MEDS: LOSARTAN 50 MG TAB PO SCH (09:27)
[2018-01-12 10:15] LABS: Band Neutrophils % 1 %; Eosinophils # (M) 0.06 k/uL (0-0.7); Lymphocytes # (M) 0.96 k/uL (1.0-4.8); Neutrophils % (M) 77 %; Nucleated Red Blood Cells 0 /100 WBC (0-0); Total Cells Counted 100
[2018-01-12 10:16] LABS: Toxic Granulation Present
[2018-01-12] MEDS: MULTIVITAMINS, THERA 1 EACH TAB PO SCH (11:22)
[2018-01-12 12:17] LABS: Glucose,Whole Blood 150 mg/dL (75-99)
--- NOTE | 2018-01-12 13:08 | P.PN ---
Subjective Progress Note Date: 01/11/18 Principal diagnosis: Urinary tract infection Patient is a 77-year-old male with a known history of dementia, hypertension, hyperlipidemia, diabetes type 2 insulin-dependent and poor functional status was brought from [facility] with complaints of decreased level of consciousness. Patient was recently at [facility] and was transferred to [facility] on last Wednesday. Patient had urinary retention during previous admission and was placed on indwelling catheter before discharging to senior living. Patient also developed stage II decub ulcers. Due to confusion and lethargy and patient was sent to hospital for possible decubitus infection. Patient also had fever, tremors and tachycardic Otherwise patient denied any cough or sputum production. No complaints of chest pain. No shortness of breath. Patient does have indwelling catheter with leg bag currently. 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 Chest x-ray showed correlate for bronchitis. UA showed 4+ glucose. Large leukocyte esterase and WBC count 8.1 01/06/2018 Patient is a poor historian. Denied any chest pain or shortness of breath. Otherwise patient is trying to get to the bed. Sitter is at bedside. ID consult is pending at this time. Urine culture showed gram-negative bacilli. No fever no chills otherwise. Tolerating oral diet. No other acute overnight issues. 01/07/2018 Patient is still agitated and is trying to get out of bed. Urine culture showed gram-negative bacilli and final culture report is not there yet. Otherwise patient is afebrile. Continues to be on Lazcano catheter. Urology has seen the patient and recommended trial void possibly on Wednesday. ID is following. Patient is otherwise tolerating oral diet. No other acute overnight issues. Family is at bedside and updated his medical condition in detail. Patient is still complaining of back pain. 01/08/2018 Patient is more awake and oriented today. Able to sit in the chair. Otherwise still complaining of back pain despite being on fentanyl patch and lidocaine patch and Willard 10. Urine cultures showed ESBL E. coli and a a Acinetobactor Xu. Antibiotics have been changed to meropenem as per ID recommendations. Patient has been afebrile. Urology has seen the patient. Otherwise no acute overnight issues. 01/09/2018 Patient is able to sit in the chair today. More awake and alert. Otherwise still trying out of the bed. No fever no chills. Continued on antibiotics in the form of meropenem. Patient has been afebrile. Trial void once clinically improves. 01/10/2018 Patient is having diarrhea today. C. diff toxin negative otherwise. Stool cultures and ova parasites was ordered. Otherwise patient is awake and alert. Could not provide much history. Patient has been afebrile otherwise. No nausea no vomiting. Denied any chest pain. Denied any back pain today as well. 01/11/2018 Diarrhea has resolved. Otherwise patient is complaining of back pain lower which is chronic and is getting pain medications for that. Afebrile. No acute overnight issues. Patient is stable to be discharged to infection care facility with Lazcano catheter and follow with urology as the clinic. Complete review of systems could not be obtained from the patient Current medications reviewed Objective - Vital Signs Vital signs: Vital Signs Temp 97.5 F L 01/11/18 15:00 Pulse 77 01/11/18 15:00 Resp 20 01/11/18 15:00 BP 106/71 01/11/18 15:00 Pulse Ox 96 01/11/18 15:00 Intake & Output 01/11/18 01/11/18 01/12/18 06:59 18:59 06:59 Output Total 1150 600 Balance -1150 -600 Weight 68.039 kg Output: Urine 1150 600 Other: Voiding Method Indwelling Catheter Indwelling Catheter # Bowel Movements 2 - Exam Patient is lying in the bed comfortably, no acute distress, awake alert but confused and agitated HEENT: Normocephalic. Neck is supple. Pupils reactive. Nostrils clear. Oral cavity is moist. Ears reveal no drainage. Neck reveals no JVD, carotid bruits, or thyromegaly. CHEST EXAMINATION: Trachea is central. Symmetrical expansion. Diminished bilateral air entry. No wheezing no rhonchi. CARDIAC: Normal S1, S2 with no gallops. No murmurs ABDOMEN: Soft. Bowel sounds normal. No organomegaly. No abdominal bruits. Extremities: reveal no edema. No clubbing or cyanosis Neurologically awake, alert and oriented 1 with well-coordinated movements. No focal deficits noted Skin: No rash . Patient does have stage II decub ulcers in the sacral area with no discharge or foul-smelling Psychiatric: Could not be assessed completely Musculoskeletal: No joint swelling or deformity. Normal range of motion. - Labs CBC & Chem 7: 01/12/18 08:53 01/12/18 08:53 Labs: Abnormal Lab Results - Last 24 Hours (Table) 01/10/18 01/11/18 01/11/18 Range/Units 20:55 07:18 08:34 RBC 3.34 L (4.30-5.90) m/uL Hgb 10.3 L (13.0-17.5) gm/dL Hct 30.0 L (39.0-53.0) % Lymphocytes # 0.7 L (1.0-4.8) k/uL Potassium (3.5-5.1) mmol/L Glucose (74-99) mg/dL POC Glucose (mg/dL) 104 H 124 H (75-99) mg/dL Calcium (8.4-10.2) mg/dL 01/11/18 01/11/18 01/11/18 Range/Units 08:34 12:14 17:45 RBC (4.30-5.90) m/uL Hgb (13.0-17.5) gm/dL Hct (39.0-53.0) % Lymphocytes # (1.0-4.8) k/uL Potassium 3.4 L (3.5-5.1) mmol/L Glucose 116 H (74-99) mg/dL POC Glucose (mg/dL) 174 H 106 H (75-99) mg/dL Calcium 8.1 L (8.4-10.2) mg/dL Microbiology - Last 24 Hours (Table) 01/05/18 10:49 Blood Culture - Final Blood No Growth after 144 hours Assessment and Plan Assessment: Acute urinary tract infection. Complicated likely related to Lazcano catheter E. coli and Acinetobacter UTI Altered mental status. Possible metabolic encephalopathy due to infection.. Patient is trying to get out of the bed.. Improving Stage II sacral decubitus ulcers. Dementia Poor functional status Hypertension Diabetes type 2 Recent urinary retention at outside hospital, currently on Lazcano catheter History of chronic back pain from remote injury. Pain fairly controlled DVT prophylaxis Plan: Antibiotics changed to meropenem. Pain management with Willard 10, fentanyl patch and lidocaine patch. Wound care for decubitus ulcers. Continue with home medications and insulin dosing. ID is following. Prognosis is guarded with multiple medical problems and comorbid conditions. Trial void once clinically stable Possible transfer to rehab once clinically improved Time with Patient: Greater than 30
--- NOTE | 2018-01-12 13:11 | P.PN ---
Subjective Progress Note Date: 01/12/18 Principal diagnosis: Urinary tract infection Patient is a 77-year-old male with a known history of dementia, hypertension, hyperlipidemia, diabetes type 2 insulin-dependent and poor functional status was brought from [facility] with complaints of decreased level of consciousness. Patient was recently at [facility] and was transferred to [facility] on last Wednesday. Patient had urinary retention during previous admission and was placed on indwelling catheter before discharging to long term. Patient also developed stage II decub ulcers. Due to confusion and lethargy and patient was sent to hospital for possible decubitus infection. Patient also had fever, tremors and tachycardic Otherwise patient denied any cough or sputum production. No complaints of chest pain. No shortness of breath. Patient does have indwelling catheter with leg bag currently. 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 Chest x-ray showed correlate for bronchitis. UA showed 4+ glucose. Large leukocyte esterase and WBC count 8.1 01/06/2018 Patient is a poor historian. Denied any chest pain or shortness of breath. Otherwise patient is trying to get to the bed. Sitter is at bedside. ID consult is pending at this time. Urine culture showed gram-negative bacilli. No fever no chills otherwise. Tolerating oral diet. No other acute overnight issues. 01/07/2018 Patient is still agitated and is trying to get out of bed. Urine culture showed gram-negative bacilli and final culture report is not there yet. Otherwise patient is afebrile. Continues to be on Lazcano catheter. Urology has seen the patient and recommended trial void possibly on Wednesday. ID is following. Patient is otherwise tolerating oral diet. No other acute overnight issues. Family is at bedside and updated his medical condition in detail. Patient is still complaining of back pain. 01/08/2018 Patient is more awake and oriented today. Able to sit in the chair. Otherwise still complaining of back pain despite being on fentanyl patch and lidocaine patch and Kosse 10. Urine cultures showed ESBL E. coli and a a Acinetobactor Xu. Antibiotics have been changed to meropenem as per ID recommendations. Patient has been afebrile. Urology has seen the patient. Otherwise no acute overnight issues. 01/09/2018 Patient is able to sit in the chair today. More awake and alert. Otherwise still trying out of the bed. No fever no chills. Continued on antibiotics in the form of meropenem. Patient has been afebrile. Trial void once clinically improves. 01/10/2018 Patient is having diarrhea today. C. diff toxin negative otherwise. Stool cultures and ova parasites was ordered. Otherwise patient is awake and alert. Could not provide much history. Patient has been afebrile otherwise. No nausea no vomiting. Denied any chest pain. Denied any back pain today as well. 01/11/2018 Diarrhea has resolved. Otherwise patient is complaining of back pain lower which is chronic and is getting pain medications for that. Afebrile. No acute overnight issues. Patient is stable to be discharged to infection care facility with Lazcano catheter and follow with urology as the clinic. 01/12/2018 Patient today is complaining of lower back pain which is not getting better and pain management consult was placed. Otherwise patient is awaiting for transfer to extended care facility. No fever no chills. Continued antibiotics. No other acute overnight issues. Complete review of systems could not be obtained from the patient Current medications reviewed Objective - Vital Signs Vital signs: Vital Signs Temp 98.0 F 01/11/18 23:00 Pulse 85 01/11/18 23:00 Resp 18 01/11/18 23:00 BP 108/51 01/11/18 23:00 Pulse Ox 92 L 01/11/18 23:00 Intake & Output 01/11/18 01/12/18 01/12/18 18:59 06:59 18:59 Output Total 600 1700 Balance -600 -1700 Weight 68.039 kg Output: Urine 600 1700 Other: Voiding Method Indwelling Catheter Indwelling Catheter # Bowel Movements 2 - Exam Patient is lying in the bed comfortably, no acute distress, awake alert but confused and agitated HEENT: Normocephalic. Neck is supple. Pupils reactive. Nostrils clear. Oral cavity is moist. Ears reveal no drainage. Neck reveals no JVD, carotid bruits, or thyromegaly. CHEST EXAMINATION: Trachea is central. Symmetrical expansion. Diminished bilateral air entry. No wheezing no rhonchi. CARDIAC: Normal S1, S2 with no gallops. No murmurs ABDOMEN: Soft. Bowel sounds normal. No organomegaly. No abdominal bruits. Extremities: reveal no edema. No clubbing or cyanosis Neurologically awake, alert and oriented 1 with well-coordinated movements. No focal deficits noted Skin: No rash . Patient does have stage II decub ulcers in the sacral area with no discharge or foul-smelling Psychiatric: Could not be assessed completely Musculoskeletal: No joint swelling or deformity. Normal range of motion. - Labs CBC & Chem 7: 01/12/18 08:53 01/12/18 08:53 Labs: Abnormal Lab Results - Last 24 Hours (Table) 01/11/18 01/11/18 01/12/18 Range/Units 17:45 20:48 07:46 RBC (4.30-5.90) m/uL Hgb (13.0-17.5) gm/dL Hct (39.0-53.0) % Lymphocytes # (Manual) (1.0-4.8) k/uL Glucose (74-99) mg/dL POC Glucose (mg/dL) 106 H 112 H 124 H (75-99) mg/dL 01/12/18 01/12/18 01/12/18 Range/Units 08:53 08:53 12:14 RBC 3.51 L (4.30-5.90) m/uL Hgb 10.5 L (13.0-17.5) gm/dL Hct 31.8 L (39.0-53.0) % Lymphocytes # (Manual) 0.96 L (1.0-4.8) k/uL Glucose 141 H (74-99) mg/dL POC Glucose (mg/dL) 150 H (75-99) mg/dL Microbiology - Last 24 Hours (Table) 01/11/18 18:00 Stool Culture - Preliminary Stool 01/05/18 10:49 Blood Culture - Final Blood No Growth after 144 hours Assessment and Plan Assessment: Acute urinary tract infection. Complicated likely related to Lazcano catheter E. coli and Acinetobacter UTI Altered mental status. Possible metabolic encephalopathy due to infection.. Patient is trying to get out of the bed.. Improving Stage II sacral decubitus ulcers. Dementia Poor functional status Hypertension Diabetes type 2 Recent urinary retention at outside hospital, currently on Lazcano catheter History of chronic back pain from remote injury. Pain fairly controlled DVT prophylaxis Plan: Antibiotics changed to meropenem. Pain management with Kosse 10, fentanyl patch and lidocaine patch. Wound care for decubitus ulcers. Continue with home medications and insulin dosing. ID is following. Prognosis is guarded with multiple medical problems and comorbid conditions. Trial void once clinically stable Possible transfer to rehab once clinically improved Time with Patient: Greater than 30
[2018-01-12] MEDS: FINASTERIDE 5 MG TAB PO SCH (13:32)
[2018-01-12] MEDS: LOPERAMIDE 2 MG CAP PO PRN (15:26)
[2018-01-12 17:31] LABS: Glucose,Whole Blood 164 mg/dL (75-99)
[2018-01-12 20:51] LABS: Glucose,Whole Blood 173 mg/dL (75-99)
[2018-01-12] MEDS: MELATONIN 5 MG TABLET PO SCH (20:53)
[2018-01-12] MEDS: TAMSULOSIN 0.4 MG CAP.ER.24H PO SCH (20:53)
[2018-01-12] MEDS: ASPIRIN 81 MG PO SCH (20:53)
[2018-01-12] MEDS: MAGNESIUM OXIDE 400 MG TAB PO SCH (20:54)
[2018-01-12] MEDS: traZODone HCL 50 MG TAB PO SCH (20:55)
[2018-01-12] MEDS: DONEPEZIL 10 MG TAB PO SCH (20:55)
[2018-01-12] MEDS: ATORVASTATIN 20 MG TAB PO SCH (20:55)
--- NOTE | 2018-01-13 00:19 | P.PN ---
Subjective Progress Note Date: 01/12/18 Principal diagnosis: Altered mental status 77-year-old male presents to Hospital from the extended care facility with alteration of his mental status. This 77-year-old gentleman has underlying dementia and was recently hospitalized an outside hospital where he was found evidence of urinary retention as well as urinary tract infection. It is related that he was treated for his urinary infection but apparently developed pressure ulcerations. The pressure ulcerations of his coccyx and buttocks are present on admission. It this time the patient is supine and comfortable. He is able to speak with her quality of his speech is poor and content. He does not seem to be very uncomfortable. Was not able to follow most commands. Patient however is not in wilma distress. 01/07/2018 the patient is somewhat uncomfortable still. He has 2 daughters present who will ensure that he gets his meal and this evening. He's been complaining of pain of some agitation. They're aware of his progressive dementia and the overall impact this has on his quality of life. 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 01/08/2018 patient remains uncomfortable. Daughter and son-in-law are present. The patient complains of his back pain. Despite current medications during the visit he goes from a sitting to standing position at least 10 times to relieve his back pain. He does seem to be quite miserable despite his patch, with his dementia he is very difficult to communicate with 01/10/2018 patient continues to be uncomfortable. Continues to sit and stand consistently. Dementia remains a problem. The case is discussed with the nurse as far as the patient's obvious discomfort 01/12/2018 reveals the patient to be more comfortable and he has been any point in time during his stay his dementia remains problematic but again he is much more comfortable. Lazcano catheter remains in place. No new complaints are noted or related. Objective - Vital Signs Vital signs: Vital Signs Temp 97.8 F 01/12/18 15:00 Pulse 86 01/12/18 15:00 Resp 16 01/12/18 15:00 BP 132/78 01/12/18 15:00 Pulse Ox 95 01/12/18 15:00 Intake & Output 01/12/18 01/12/18 01/13/18 06:59 18:59 06:59 Intake Total 820 Output Total 6459 084 3917 Balance -1700 -134 -1100 Weight 68.039 kg Intake: Intake, IV Titration 100 Amount Meropenem 1 gm In Sodium 100 Chloride 0.9% 100 ml @ 100 mls/hr IVPB Q8HR [facility] Rx#:[id number] Oral 720 Output: Urine 6472 053 9920 Stool 4 Other: Voiding Method Indwelling Catheter Indwelling Catheter # Voids 1 1 # Bowel Movements 1 - Exam 77-year-old male in no distress, HEENT: Anicteric, conjunctiva are pink and moist, nasal or oral mucosa are without lesion. The neck is supple without lymphadenopathy or thyromegaly. No oral thrush is noted. Oral mucosa is slightly dry but no oral lesions are seen Lungs: Symmetrical air entry is noted, expiratory scattered wheezes are heard but no bronchial sounds or egophony noted Heart: Regular rate and rhythm with an audible S1-S2, no S3 loud S4 noted. No significant murmur click or rub noted. Abdomen: Positive bowel sounds, soft and nontender, there is no palpable masses or organomegaly. Abdomen is without guarding or rebound. Extremities:Upper extremities reveal evidence of equal pulses, no lesions are seen, no petechiae or telangiectasia. The lower extremities have no significant edema, peripheral pulses were 2+ and symmetric, no lesions or ulcerations are seen. Capillary refill was brisk. Skin: No significant rashes are seen. The patient does have evidence of pressure ulceration on the buttocks area. The more superior ulceration measures at 4 x 3.5 but has eschar and is non-stable, more distally the 3 x 2 x 0.2 cm ulceration has just some scant drainage. Neither one were very tender to manipulation. Neuro:Awake and alert, oriented to person only. As far as following commands opened his mouth when requested but didn't follow any other commands correctly and could not assist at all on rolling to his side. Musculoskeletal: Patient is with generalized weakness No acute joint effusions are noted. Lymph: No cervical, supraclavicular, axillary, epitrochlear, or inguinal lymphadenopathy was noted. - Labs CBC & Chem 7: 01/12/18 08:53 01/12/18 08:53 Labs: Abnormal Lab Results - Last 24 Hours (Table) 01/12/18 01/12/18 01/12/18 Range/Units 07:46 08:53 08:53 RBC 3.51 L (4.30-5.90) m/uL Hgb 10.5 L (13.0-17.5) gm/dL Hct 31.8 L (39.0-53.0) % Lymphocytes # (Manual) 0.96 L (1.0-4.8) k/uL Glucose 141 H (74-99) mg/dL POC Glucose (mg/dL) 124 H (75-99) mg/dL 01/12/18 01/12/18 01/12/18 Range/Units 12:14 17:27 20:47 RBC (4.30-5.90) m/uL Hgb (13.0-17.5) gm/dL Hct (39.0-53.0) % Lymphocytes # (Manual) (1.0-4.8) k/uL Glucose (74-99) mg/dL POC Glucose (mg/dL) 150 H 164 H 173 H (75-99) mg/dL Microbiology - Last 24 Hours (Table) 01/11/18 18:00 Stool Culture - Preliminary Stool Laboratory Results WBC 6.0 k/uL (3.8-10.6) 01/12/18 08:53 RBC 3.51 m/uL (4.30-5.90) L 01/12/18 08:53 Hgb 10.5 gm/dL (13.0-17.5) L 01/12/18 08:53 Hct 31.8 % (39.0-53.0) L 01/12/18 08:53 MCV 90.5 fL (80.0-100.0) 01/12/18 08:53 MCH 29.8 pg (25.0-35.0) 01/12/18 08:53 MCHC 33.0 g/dL (31.0-37.0) 01/12/18 08:53 RDW 15.0 % (11.5-15.5) 01/12/18 08:53 Plt Count 256 k/uL (150-450) 01/12/18 08:53 Neutrophils % 76 % 01/11/18 08:34 Neutrophils % (Manual) 77 % 01/12/18 08:53 Band Neutrophils % 1 % 01/12/18 08:53 Lymphocytes % 10 % 01/11/18 08:34 Lymphocytes % (Manual) 16 % 01/12/18 08:53 Monocytes % 8 % 01/11/18 08:34 Monocytes % (Manual) 5 % 01/12/18 08:53 Eosinophils % 3 % 01/11/18 08:34 Eosinophils % (Manual) 1 % 01/12/18 08:53 Basophils % 0 % 01/11/18 08:34 Neutrophils # 5.4 k/uL (1.3-7.7) 01/11/18 08:34 Neutrophils # (Manual) 4.60 k/uL (1.3-7.7) 01/12/18 08:53 Lymphocytes # 0.7 k/uL (1.0-4.8) L 01/11/18 08:34 Lymphocytes # (Manual) 0.96 k/uL (1.0-4.8) L 01/12/18 08:53 Monocytes # 0.6 k/uL (0-1.0) 01/11/18 08:34 Monocytes # (Manual) 0.30 k/uL (0-1.0) 01/12/18 08:53 Eosinophils # 0.2 k/uL (0-0.7) 01/11/18 08:34 Eosinophils # (Manual) 0.06 k/uL (0-0.7) 01/12/18 08:53 Basophils # 0.0 k/uL (0-0.2) 01/11/18 08:34 Nucleated RBCs 0 /100 WBC (0-0) 01/12/18 08:53 Manual Slide Review Performed 01/12/18 08:53 Toxic Granulation Present 01/12/18 08:53 Hypochromasia Slight 01/12/18 08:53 Poikilocytosis Slight 01/12/18 08:53 Sodium 143 mmol/L (137-145) 01/12/18 08:53 Potassium 4.1 mmol/L (3.5-5.1) 01/12/18 08:53 Chloride 106 mmol/L (98-107) 01/12/18 08:53 Carbon Dioxide 29 mmol/L (22-30) 01/12/18 08:53 Anion Gap 8 mmol/L 01/12/18 08:53 BUN 15 mg/dL (9-20) 01/12/18 08:53 Creatinine 0.75 mg/dL (0.66-1.25) 01/12/18 08:53 Est GFR (CKD-EPI)AfAm >90 (>60 ml/min/1.73 sqM) 01/12/18 08:53 Est GFR (CKD-EPI)NonAf 88 (>60 ml/min/1.73 sqM) 01/12/18 08:53 Glucose 141 mg/dL (74-99) H 01/12/18 08:53 POC Glucose (mg/dL) 173 mg/dL (75-99) H 01/12/18 20:47 POC Glu Platform Builder ID Doreen Hagen 01/12/18 20:47 Plasma Lactic Acid [place] 0.8 mmol/L (0.7-2.0) 01/05/18 10:49 Calcium 8.5 mg/dL (8.4-10.2) 01/12/18 08:53 Magnesium 1.8 mg/dL (1.6-2.3) 01/05/18 10:49 Total Bilirubin 0.9 mg/dL (0.2-1.3) 01/05/18 10:49 AST 18 U/L (17-59) 01/05/18 10:49 ALT 33 U/L (21-72) 01/05/18 10:49 Alkaline Phosphatase 96 U/L (38-126) 01/05/18 10:49 Ammonia 16 umol/L (<30) 01/05/18 10:49 Total Creatine Kinase 36 U/L (55-170) L 01/05/18 10:49 CK-MB (CK-2) 0.7 ng/mL (0.0-2.4) 01/05/18 10:49 CK-MB (CK-2) Rel Index 1.9 01/05/18 10:49 Total Protein 5.4 g/dL (6.3-8.2) L 01/05/18 10:49 Albumin 2.6 g/dL (3.5-5.0) L 01/05/18 10:49 Urine Color Yellow 01/05/18 10:49 Urine Appearance Cloudy (Clear) 01/05/18 10:49 Urine pH 6.0 (5.0-8.0) 01/05/18 10:49 Ur Specific Muse 1.017 (1.001-1.035) 01/05/18 10:49 Urine Protein 1+ (Negative) H 01/05/18 10:49 Urine Glucose (UA) 4+ (Negative) H 01/05/18 10:49 Urine Ketones Negative (Negative) 01/05/18 10:49 Urine Blood Small (Negative) H 01/05/18 10:49 Urine Nitrite Positive (Negative) 01/05/18 10:49 Urine Bilirubin Negative (Negative) 01/05/18 10:49 Urine Urobilinogen <2.0 mg/dL (<2.0) 01/05/18 10:49 Ur Leukocyte Esterase Large (Negative) H 01/05/18 10:49 Urine RBC 5 /hpf (0-5) 01/05/18 10:49 Urine WBC 81 /hpf (0-5) H 01/05/18 10:49 Urine WBC Clumps Few /hpf (None) H 01/05/18 10:49 Stl Cryptosporidium Ag Negative (Negative) 01/11/18 18:00 Stool Giardia Source Stool 01/11/18 18:00 Stl Giardia Antigen Negative (Negative) 01/11/18 18:00 C. difficile (EIA) Intrp Negative (Negative) 01/09/18 22:12 Microbiology 01/11/18 18:00 Stool Stool Culture - Preliminary 01/05/18 10:49 Blood Blood Culture - Final No Growth after 144 hours 01/05/18 10:49 Urine,Catheterized Urine Culture - Final Escherichia coli Acinetobacter anastacio/haemol Assessment and Plan (1) Urinary tract infection Narrative/Plan: 77-year-old male presents from the extended care facility with alteration of his mental status and increasing weakness. It is related the patient has had a decline of his status as of late. He does have underlying dementia and was recently hospitalized an outside facility where he was on evidence of urinary tract infection. This was treated and he was released to extended care facility. Apparently there is been difficulties with his mobility and he now has present on admission ulceration to his left buttocks as above. Collagenase will be applied to the unstageable ulcer #1 of the buttocks and the opticell foam to the stage III that is distal to the ulcer #1. Antibiotic therapy is currently with Zosyn and we await the final cultures to further de- escalate antibiotic therapy, however is an adequate choice at this time given that he has been an extended care facility there is some concerns for more resistant pathogens. Enhance glucose control and improve protein will all be helpful in his wound healing. Multivitamin will be added. Air mattress overlay . 01/07/2018 the patient remained somewhat uncomfortable. Wound care is continuing without acute difficulty. Urine culture is now available and we'll alter antibiotic therapy from Zosyn to meropenem for his ESBL ecoli and acientobacter isolated from the urine. Will be going back to extended care to complete his course of antibiotic therapy when he is improved. Family aware of his declining status. 01/08/2018 the patient remains uncomfortable it is noted that the patient arises from the sitting to standing position nearly 10 times during the evaluation, his family was present relates this is going on throughout the day despite his current medications. He is tolerating the meropenem well. Planning 10 days when he has back to the extended care facility. His prognosis is very poor. 01/10/2018 patient remains very uncomfortable. As noted has evidence of the infection that is merrem susceptible and this will be continued. Some enhance pain medication the patient's pain is not well controlled 01/12/2018 relates the patient to be somewhat more comfortable than he has been at a time during his stay that I have evaluated. He is not agitated but of course has his severe dementia. It appears that his enhance pain medication has helped. Complete 10 days of Merrem for his Complicated urinary tract infection. Current Visit: Yes Status: Acute Code(s): N39.0 - URINARY TRACT INFECTION, SITE NOT SPECIFIED SNOMED Code(s): 77356597 (2) Gram negative sepsis Current Visit: Yes Status: Acute Code(s): A41.50 - GRAM-NEGATIVE SEPSIS, UNSPECIFIED SNOMED Code(s): 242902692 (3) Unstageable pressure ulcer of left buttock Current Visit: Yes Status: Acute Code(s): L89.320 - PRESSURE ULCER OF LEFT BUTTOCK, UNSTAGEABLE SNOMED Code(s): 637153416 (4) Stage III pressure ulcer of left buttock Current Visit: Yes Status: Acute Code(s): L89.323 - PRESSURE ULCER OF LEFT BUTTOCK, STAGE 3 SNOMED Code(s): 664316654
[2018-01-13] MEDS: KETOROLAC 30 MG/ML 1 ML VIAL IVP SCH ×5 (01:06→23:21)
[2018-01-13] MEDS: MEROPENEM 1 GM in SODIUM CHLORIDE 0.9% 100 ML IVPB SCH ×4 (01:07→23:22)
[2018-01-13] MEDS: BACLOFEN 10 MG TAB PO SCH ×3 (04:51→19:30)
[2018-01-13] MEDS: LIDOCAINE 5% PATCH TOPICAL SCH (04:51)
[2018-01-13 08:24] LABS: Glucose,Whole Blood 142 mg/dL (75-99)
[2018-01-13] MEDS: INSULIN ASPART 100 UNIT/ML 1 ML 10 ML VIAL SQ SCH ×4 (08:35→20:49)
[2018-01-13] MEDS: HEPARIN SODIUM,PORCINE 5,000 UNIT/ML 1 ML VIAL SQ SCH ×2 (08:42→19:29)
[2018-01-13] MEDS: CITALOPRAM HYDROBROMIDE 20 MG TAB PO SCH (08:43)
[2018-01-13] MEDS: CARVEDILOL 12.5 MG TAB PO SCH ×2 (08:43→17:14)
[2018-01-13] MEDS: amLODIPine 10 MG TAB PO SCH (08:43)
[2018-01-13] MEDS: LOSARTAN 50 MG TAB PO SCH (08:44)
[2018-01-13] MEDS: FAMOTIDINE 20 MG TAB PO SCH (08:44)
[2018-01-13] MEDS: CALAMINE/ZINC OXIDE LOTION 177 ML BTL TOPICAL SCH ×3 (08:44→19:39)
[2018-01-13] MEDS: Dapagliflozin Propanediol [Farxiga] PO SCH (08:44)
[2018-01-13] MEDS: CHOLESTYRAMINE (WITH SUGAR) 4 GM PACKET PO SCH ×2 (08:45→17:14)
[2018-01-13] MEDS: FINASTERIDE 5 MG TAB PO SCH (08:45)
[2018-01-13] MEDS: GABAPENTIN 100 MG CAP PO SCH ×2 (08:45→19:29)
--- NOTE | 2018-01-13 09:17 | P.CON ---
Consult Note - . Consult date: 01/13/18 Assessment/Plan:: Patient seen and examined at bedside, originally admitted for altered mental status. He has history of dementia and chronic pain in low back. Patient was previously on methadone which did help with his pain, but he has been struggling with it since being in the hospital. Patient was started on fentanyl patch and [place] for breakthrough pain. Likely transfer to [facility] today. At bedside this morning, patient appears to be reasonably alert and answers questions appropriately, but is falling asleep in the middle of conversation. His fentanyl patch was recently escalated to 37 mcg/hr q72 and the patient does appear to be excessively sedated, although he is on numerous medications that could potentially be causing oversedation. Balancing A) the patient's need for pain control, B) sedation with medications, and C) history of dementia, Would recommend discharging with no more than 25 mcg/hr fentanyl patch (preferably 12 mcg/hr if patient is agreeable) and breakthrough [place]. Given the patient's age , he is much more likely to be susceptible to excessive sedation and respiratory depression, and this should be explained to both the patient and his family members, and to the staff at whatever facility at which he ends up. Thank you for the consult and please call back with any further questions.
[2018-01-13] MEDS: COLLAGENASE 250 UNIT/GM OINTMENT 30 GM TUBE TOPICAL SCH (11:44)
[2018-01-13 12:01] LABS: Glucose,Whole Blood 168 mg/dL (75-99)
[2018-01-13] MEDS: HYDROcodone/APAP 10-325MG 1 EACH TAB PO PRN ×2 (13:58→20:09)
[2018-01-13] MEDS: MULTIVITAMINS, THERA 1 EACH TAB PO SCH (13:59)
[2018-01-13] MEDS: LORazepam 0.5 MG TAB PO PRN (17:13)
[2018-01-13 17:31] LABS: Glucose,Whole Blood 98 mg/dL (75-99)
[2018-01-13] MEDS: MELATONIN 5 MG TABLET PO SCH (19:29)
[2018-01-13] MEDS: traZODone HCL 50 MG TAB PO SCH (19:29)
[2018-01-13] MEDS: DONEPEZIL 10 MG TAB PO SCH (19:29)
[2018-01-13] MEDS: ATORVASTATIN 20 MG TAB PO SCH (19:29)
[2018-01-13] MEDS: TAMSULOSIN 0.4 MG CAP.ER.24H PO SCH (19:30)
[2018-01-13] MEDS: MAGNESIUM OXIDE 400 MG TAB PO SCH (19:30)
[2018-01-13] MEDS: ASPIRIN 81 MG PO SCH (19:30)
[2018-01-13 20:41] LABS: Glucose,Whole Blood 104 mg/dL (75-99)
[2018-01-13] MEDS ORDERED: LORazepam 2 MG/ML INJ IV PRN (21:03)
[2018-01-13] MEDS ORDERED: LORazepam 2 MG/ML INJ IV STA (21:03)
[2018-01-13 22:51] VITALS: TEMP 98
--- NOTE | 2018-01-13 23:50 | P.PN ---
Subjective Progress Note Date: 01/13/18 Principal diagnosis: Altered mental status 77-year-old male presents to Hospital from the extended care facility with alteration of his mental status. This 77-year-old gentleman has underlying dementia and was recently hospitalized an outside hospital where he was found evidence of urinary retention as well as urinary tract infection. It is related that he was treated for his urinary infection but apparently developed pressure ulcerations. The pressure ulcerations of his coccyx and buttocks are present on admission. It this time the patient is supine and comfortable. He is able to speak with her quality of his speech is poor and content. He does not seem to be very uncomfortable. Was not able to follow most commands. Patient however is not in wilma distress. 01/07/2018 the patient is somewhat uncomfortable still. He has 2 daughters present who will ensure that he gets his meal and this evening. He's been complaining of pain of some agitation. They're aware of his progressive dementia and the overall impact this has on his quality of life. 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 01/08/2018 patient remains uncomfortable. Daughter and son-in-law are present. The patient complains of his back pain. Despite current medications during the visit he goes from a sitting to standing position at least 10 times to relieve his back pain. He does seem to be quite miserable despite his patch, with his dementia he is very difficult to communicate with 01/10/2018 patient continues to be uncomfortable. Continues to sit and stand consistently. Dementia remains a problem. The case is discussed with the nurse as far as the patient's obvious discomfort 01/12/2018 reveals the patient to be more comfortable and he has been any point in time during his stay his dementia remains problematic but again he is much more comfortable. Lazcano catheter remains in place. No new complaints are noted or related. 01/13/2018 the patient is very agitated this evening. He relates he needs to. He but has a Lazcano in place. He relates he needs to have a bowel movement and no we will help him. The nurse aides relate that he was on the commode with little effect. Objective - Vital Signs Vital signs: Vital Signs Temp 98.0 F 01/13/18 22:50 Pulse 84 01/13/18 22:50 Resp 18 01/13/18 22:50 BP 127/71 01/13/18 22:50 Pulse Ox 95 01/13/18 22:50 Intake & Output 01/13/18 01/13/18 01/14/18 06:59 18:59 06:59 Intake Total 300 780 Output Total 1775 600 Balance -1475 180 Weight 80 kg Intake: Oral 300 780 Output: Urine 1775 600 Other: Voiding Method Indwelling Catheter Indwelling Catheter # Voids 1 - Exam 77-year-old male in no distress, HEENT: Anicteric, conjunctiva are pink and moist, nasal or oral mucosa are without lesion. The neck is supple without lymphadenopathy or thyromegaly. No oral thrush is noted. Oral mucosa is slightly dry but no oral lesions are seen Lungs: Symmetrical air entry is noted, expiratory scattered wheezes are heard but no bronchial sounds or egophony noted Heart: Regular rate and rhythm with an audible S1-S2, no S3 loud S4 noted. No significant murmur click or rub noted. Abdomen: Positive bowel sounds, soft and nontender, there is no palpable masses or organomegaly. Abdomen is without guarding or rebound. Extremities:Upper extremities reveal evidence of equal pulses, no lesions are seen, no petechiae or telangiectasia. The lower extremities have no significant edema, peripheral pulses were 2+ and symmetric, no lesions or ulcerations are seen. Capillary refill was brisk. Skin: No significant rashes are seen. The patient does have evidence of pressure ulceration on the buttocks area. The more superior ulceration measures at 4 x 3.5 but has eschar and is non-stable, more distally the 3 x 2 x 0.2 cm ulceration has just some scant drainage. Neither one were very tender to manipulation. Neuro:Awake and alert, oriented to person only. As far as following commands opened his mouth when requested but didn't follow any other commands correctly and could not assist at all on rolling to his side. Musculoskeletal: Patient is with generalized weakness No acute joint effusions are noted. Lymph: No cervical, supraclavicular, axillary, epitrochlear, or inguinal lymphadenopathy was noted. - Labs CBC & Chem 7: 01/12/18 08:53 01/12/18 08:53 Labs: Abnormal Lab Results - Last 24 Hours (Table) 03/15/18 03/15/18 03/15/18 Range/Units 08:19 11:55 20:39 POC Glucose (mg/dL) 142 H 168 H 104 H (75-99) mg/dL Assessment and Plan (1) Urinary tract infection Narrative/Plan: 77-year-old male presents from the extended care facility with alteration of his mental status and increasing weakness. It is related the patient has had a decline of his status as of late. He does have underlying dementia and was recently hospitalized an outside facility where he was on evidence of urinary tract infection. This was treated and he was released to extended care facility. Apparently there is been difficulties with his mobility and he now has present on admission ulceration to his left buttocks as above. Collagenase will be applied to the unstageable ulcer #1 of the buttocks and the opticell foam to the stage III that is distal to the ulcer #1. Antibiotic therapy is currently with Zosyn and we await the final cultures to further de- escalate antibiotic therapy, however is an adequate choice at this time given that he has been an extended care facility there is some concerns for more resistant pathogens. Enhance glucose control and improve protein will all be helpful in his wound healing. Multivitamin will be added. Air mattress overlay . 01/07/2018 the patient remained somewhat uncomfortable. Wound care is continuing without acute difficulty. Urine culture is now available and we'll alter antibiotic therapy from Zosyn to meropenem for his ESBL ecoli and acientobacter isolated from the urine. Will be going back to extended care to complete his course of antibiotic therapy when he is improved. Family aware of his declining status. 01/08/2018 the patient remains uncomfortable it is noted that the patient arises from the sitting to standing position nearly 10 times during the evaluation, his family was present relates this is going on throughout the day despite his current medications. He is tolerating the meropenem well. Planning 10 days when he has back to the extended care facility. His prognosis is very poor. 01/10/2018 patient remains very uncomfortable. As noted has evidence of the infection that is merrem susceptible and this will be continued. Some enhance pain medication the patient's pain is not well controlled 01/12/2018 relates the patient to be somewhat more comfortable than he has been at a time during his stay that I have evaluated. He is not agitated but of course has his severe dementia. It appears that his enhance pain medication has helped. Complete 10 days of Merrem for his Complicated urinary tract infection. 01/13/2018 patient is more agitated today. He has severe dementia. The patient was seen by pain management. He had a transient moment of sedation. And they suggested decreasing his pain medications. For the entire rest the day he has been agitated and in pain. Further evaluation by their service is indicated. We'll complete his 10 days of meropenem for his comp urinary tract infection. He has 5 further days to complete. Current Visit: Yes Status: Acute Code(s): N39.0 - URINARY TRACT INFECTION, SITE NOT SPECIFIED SNOMED Code(s): 34919426 (2) Gram negative sepsis Current Visit: Yes Status: Acute Code(s): A41.50 - GRAM-NEGATIVE SEPSIS, UNSPECIFIED SNOMED Code(s): 596129954 (3) Unstageable pressure ulcer of left buttock Current Visit: Yes Status: Acute Code(s): L89.320 - PRESSURE ULCER OF LEFT BUTTOCK, UNSTAGEABLE SNOMED Code(s): 542224511 (4) Stage III pressure ulcer of left buttock Current Visit: Yes Status: Acute Code(s): L89.323 - PRESSURE ULCER OF LEFT BUTTOCK, STAGE 3 SNOMED Code(s): 222400580
[2018-01-14] MEDS: KETOROLAC 30 MG/ML 1 ML VIAL IVP SCH ×2 (06:23→11:01)
[2018-01-14] MEDS: LIDOCAINE 5% PATCH TOPICAL SCH (06:25)
[2018-01-14] MEDS: BACLOFEN 10 MG TAB PO SCH ×2 (06:25→14:01)
[2018-01-14 07:48] LABS: Glucose,Whole Blood 138 mg/dL (75-99)
[2018-01-14] MEDS: HYDROcodone/APAP 10-325MG 1 EACH TAB PO PRN (08:09)
[2018-01-14] MEDS: INSULIN ASPART 100 UNIT/ML 1 ML 10 ML VIAL SQ SCH ×2 (08:10→13:48)
[2018-01-14] MEDS: MEROPENEM 1 GM in SODIUM CHLORIDE 0.9% 100 ML IVPB SCH (08:10)
[2018-01-14] MEDS: CHOLESTYRAMINE (WITH SUGAR) 4 GM PACKET PO SCH (08:11)
[2018-01-14] MEDS: HEPARIN SODIUM,PORCINE 5,000 UNIT/ML 1 ML VIAL SQ SCH (08:12)
[2018-01-14] MEDS: GABAPENTIN 100 MG CAP PO SCH (08:12)
[2018-01-14] MEDS: CITALOPRAM HYDROBROMIDE 20 MG TAB PO SCH (08:13)
[2018-01-14] MEDS: CARVEDILOL 12.5 MG TAB PO SCH (08:13)
[2018-01-14] MEDS: LOSARTAN 50 MG TAB PO SCH (08:13)
[2018-01-14] MEDS: CALAMINE/ZINC OXIDE LOTION 177 ML BTL TOPICAL SCH (08:13)
[2018-01-14] MEDS: amLODIPine 10 MG TAB PO SCH (08:13)
[2018-01-14] MEDS: FAMOTIDINE 20 MG TAB PO SCH (08:14)
[2018-01-14] MEDS: Dapagliflozin Propanediol [Farxiga] PO SCH (08:14)
[2018-01-14] MEDS: COLLAGENASE 250 UNIT/GM OINTMENT 30 GM TUBE TOPICAL SCH (08:14)
[2018-01-14] MEDS: FINASTERIDE 5 MG TAB PO SCH (08:14)
[2018-01-14 08:40] VITALS: BP 112/68; PULSE 92; RESP 16
[2018-01-14 09:20] VITALS: BMI 26.8
[2018-01-14] MEDS: LORazepam 0.5 MG TAB PO PRN (11:01)
[2018-01-14] MEDS: MULTIVITAMINS, THERA 1 EACH TAB PO SCH (11:01)
[2018-01-14 12:00] LABS: Glucose,Whole Blood 128 mg/dL (75-99)
--- NOTE | 2018-01-14 13:03 | P.DS ---
Providers Date of admission: 01/06/18 15:51 Expected date of discharge: 01/14/18 Attending physician: Jonas Montanez Consults: 01/05/18 14:51 Consult Physician Routine Consulting Provider: Raheem Barney Consult Reason/Comments: Decubitus ulcer Do you want consulting provider notified?: Yes 01/07/18 14:00 Consult Physician Routine Consulting Provider: Abdoulaye Child Consult Reason/Comments: urinary retention Do you want consulting provider notified?: Yes Pain management services [facility]: Final Diagnoses: Acute urinary tract infection. Complicated likely related to Posey catheter E. coli and Acinetobacter UTI Altered mental status. Possible metabolic encephalopathy due to infection. Improving Stage II sacral decubitus ulcers. 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 Hospital course:Patient is a 77-year-old male with a known history of dementia, hypertension, hyperlipidemia, diabetes type 2 insulin-dependent and poor functional status was brought from [facility] with complaints of decreased level of consciousness. Patient was recently at [facility] and was transferred to [facility] on last Wednesday. Patient had urinary retention during previous admission and was placed on indwelling catheter before discharging to group home. Patient also developed stage II decub ulcers. Due to confusion and lethargy and patient was sent to hospital for possible decubitus infection. Evaluated by infectious disease, urology and pain management services. Received gentle IV fluid hydration, IV antibiotics. Urine cultures showed ESBL E. coli and Acinetobactor Xu. Antibiotics changed to meropenem as per ID recommendations. Posey catheter discontinued with attempted voiding trial, continued to have significant urinary retention. Posey catheter reinserted. Replaced today as per urology recommendations with Posey to be changed monthly. Patient complaining of chronic lower back pain. Currently being discharged on fentanyl patch 25mcg/hr with breakthrough Irving. Preferred dose of fentanyl 12mcg/hr, as per pain management services, with no more than 25mcg/hr. Given patient's age, more susceptible to excessive sedation and respiratory depression, which has been explained to both patient and his family. Significant clinical improvement. Patient has been cleared for discharge by all consults. Patient is being discharged to [facility] subacute rehab. Physical Exam:VSS, alert and oriented 2 ,no acute distress. CV: Regular S1,S2, LUNGS: Diminished. ABD: Soft, nontender, positive bowel sounds.NEURO: No focal deficits. The impression and plan of care has been dictated as directed. : I performed a history and examination of this patient, discussed the same with the dictator. I agree with the dictator's note ,documented as a scribe. Any additional findings or plans will be noted. Time taken: 35 minutes Patient Condition at Discharge: Stable Plan - Discharge Summary Discharge Rx Participant: Yes New Discharge Prescriptions: New Collagenase [Santyl] 1 applic TOPICAL DAILY applic Multivitamins, Thera [Multivitamin (formulary)] 1 each PO DAILY@1200 tab Ertapenem [INVanz] 1 gm IVPB Q24H 10 Days #10 bag Cholestyramine (with Sugar) [Questran Packet] 4 gm PO BID@1000,1800 packet Finasteride [Proscar] 5 mg PO DAILY tab Meropenem [Merrem] 1 gm IVPB Q8HR 5 Days vial Continue Acetaminophen [Tylenol] 650 mg PO Q6H PRN PRN Reason: Fever Insulin Regular, Human [NovoLIN R] See Protocol SQ ACHS@06,11,16,20 Dermaseptin 1 applic TOPICAL TID Menthol [Biofreeze] 1 applic TOPICAL TID Baclofen [Lioresal] 10 mg PO TID@0500,1300,2100 Gabapentin [Neurontin] 100 mg PO BID Carvedilol [Coreg] 25 mg PO BID Diclofenac Sodium/Misoprostol [Arthrotec 75 mg-200 Mcg Tab] 1 tab PO BID traZODone HCL [Desyrel] 50 mg PO HS@2000 Tamsulosin HCl [Flomax] 0.4 mg PO HS Melatonin 5 mg PO HS@2000 Magnesium 200 mg PO HS Losartan Potassium 100 mg PO DAILY Famotidine [Pepcid] 20 mg PO DAILY Donepezil [Aricept] 20 mg PO HS amLODIPine [Norvasc] 10 mg PO DAILY Dapagliflozin Propanediol [Farxiga] 10 mg PO DAILY Citalopram Hydrobromide [CeleXA] 20 mg PO DAILY Atorvastatin [Lipitor] 20 mg PO HS Aspirin EC [Ecotrin Low Dose] 81 mg PO HS Lidocaine [Lidoderm 5% Patch] 1 patch TRANSDERM DAILY@0500 fentaNYL 25MCG/HR PATCH [Duragesic 25MCG/HR] 1 patch TRANSDERM Q72H #1 patch HYDROcodone/APAP 10-325MG [Irving 10-325] 1 tab PO Q6H PRN #20 PRN Reason: Pain LORazepam [Ativan] 0.5 mg PO Q6H PRN #20 tablet PRN Reason: Anxiety Changed Docusate [Colace] 100 mg PO BID PRN #0 PRN Reason: Constipation Ipratropium-Albuterol Nebulize [Duoneb 0.5 mg-3 mg/3 ml Soln] 3 ml INHALATION QID #0 Discharge Medication List Acetaminophen [Tylenol] 650 mg PO Q6H PRN 01/05/18 [History] Aspirin EC [Ecotrin Low Dose] 81 mg PO HS 01/05/18 [History] Atorvastatin [Lipitor] 20 mg PO HS 01/05/18 [History] Baclofen [Lioresal] 10 mg PO TID@0500,1300,2100 01/05/18 [History] Carvedilol [Coreg] 25 mg PO BID 01/05/18 [History] Citalopram Hydrobromide [CeleXA] 20 mg PO DAILY 01/05/18 [History] Dapagliflozin Propanediol [Farxiga] 10 mg PO DAILY 01/05/18 [History] Dermaseptin 1 applic TOPICAL TID 01/05/18 [History] Diclofenac Sodium/Misoprostol [Arthrotec 75 mg-200 Mcg Tab] 1 tab PO BID [History] Donepezil [Aricept] 20 mg PO HS 01/05/18 [History] Famotidine [Pepcid] 20 mg PO DAILY 01/05/18 [History] Gabapentin [Neurontin] 100 mg PO BID 01/05/18 [History] Insulin Regular, Human [NovoLIN R] See Protocol SQ ACHS@06,11,16,20 01/05/18 [ History] Lidocaine [Lidoderm 5% Patch] 1 patch TRANSDERM DAILY@0500 01/05/18 [History] Losartan Potassium 100 mg PO DAILY 01/05/18 [History] Magnesium 200 mg PO HS 01/05/18 [History] Melatonin 5 mg PO HS@199901/05/18 [History] Menthol [Biofreeze] 1 applic TOPICAL TID 01/05/18 [History] Tamsulosin HCl [Flomax] 0.4 mg PO HS 01/05/18 [History] amLODIPine [Norvasc] 10 mg PO DAILY 01/05/18 [History] traZODone HCL [Desyrel] 50 mg PO HS@2000 01/05/18 [History] Collagenase [Santyl] 1 applic TOPICAL DAILY applic 01/10/18 [Rx] Docusate [Colace] 100 mg PO BID PRN #0 01/10/18 [Rx] Multivitamins, Thera [Multivitamin (formulary)] 1 each PO DAILY@1200 tab [Rx] Ertapenem [INVanz] 1 gm IVPB Q24H 10 Days #10 bag 01/11/18 [Rx] Cholestyramine (with Sugar) [Questran Packet] 4 gm PO BID@1000,1800 packet [Rx] Finasteride [Proscar] 5 mg PO DAILY tab 01/14/18 [Rx] HYDROcodone/APAP 10-325MG [Irving 10-325] 1 tab PO Q6H PRN #20 01/14/18 [Rx] Ipratropium-Albuterol Nebulize [Duoneb 0.5 mg-3 mg/3 ml Soln] 3 ml INHALATION QID #0 01/14/18 [Rx] LORazepam [Ativan] 0.5 mg PO Q6H PRN #20 tablet 01/14/18 [Rx] Meropenem [Merrem] 1 gm IVPB Q8HR 5 Days vial 01/14/18 [Rx] fentaNYL 25MCG/HR PATCH [Duragesic 25MCG/HR] 1 patch TRANSDERM Q72H #1 patch [Rx] Follow up Appointment(s)/Referral(s): Shaheen Pleitez MD [REFERRING] - 3 Days Raheem Barney MD [STAFF PHYSICIAN] - 2 Weeks Abdoulaye Child MD [STAFF PHYSICIAN] - 1 Week Ambulatory/Diagnostic Orders: Complete Blood Count w/diff [LAB.AMB] Time Frame: 3 Days, Location: Determined By Patient Patient Instructions/Handouts: Urinary Tract Infection in Men (DC), Type 2 Diabetes in Adults (DC), Peripherally Inserted Central Catheters and Midline Catheters (DC), Pressure Ulcer (DC) Activity/Diet/Wound Care/Special Instructions: Antibiotics and wound care as per infectious disease. Cardiac, diabetic diet. Drink plenty of fluid. Activity as tolerated, fall precautions, change positions every 2 hours while awake. Keep off pressure ulcer. Wound care: santyl to left butt wound daily PICC line care card given. Change posey catheter on 02/10/2018. No need to follow up with urology per Dr. Danyell HERNANDEZ, BMP in 3 days. Discharge Disposition: TRANSFER TO SNF/ECF
--- NOTE | 2018-01-17 21:39 | P.PN ---
Subjective Progress Note Date: 01/13/18 Principal diagnosis: Urinary tract infection Patient is a 77-year-old male with a known history of dementia, hypertension, hyperlipidemia, diabetes type 2 insulin-dependent and poor functional status was brought from [facility] with complaints of decreased level of consciousness. Patient was recently at [facility] and was transferred to [facility] on last Wednesday. Patient had urinary retention during previous admission and was placed on indwelling [facility] Patient also developed stage II decub ulcers. Due to confusion and lethargy and patient was sent to hospital for possible decubitus infection. Patient also had fever, tremors and tachycardic Otherwise patient denied any cough or sputum production. No complaints of chest pain. No shortness of breath. Patient does have indwelling catheter with leg bag currently. 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 Chest x-ray showed correlate for bronchitis. UA showed 4+ glucose. Large leukocyte esterase and WBC count 8.1 01/06/2018 Patient is a poor historian. Denied any chest pain or shortness of breath. Otherwise patient is trying to get to the bed. Sitter is at bedside. ID consult is pending at this time. Urine culture showed gram-negative bacilli. No fever no chills otherwise. Tolerating oral diet. No other acute overnight issues. 01/07/2018 Patient is still agitated and is trying to get out of bed. Urine culture showed gram-negative bacilli and final culture report is not there yet. Otherwise patient is afebrile. Continues to be on Lazcano catheter. Urology has seen the patient and recommended trial void possibly on Wednesday. ID is following. Patient is otherwise tolerating oral diet. No other acute overnight issues. Family is at bedside and updated his medical condition in detail. Patient is still complaining of back pain. 01/08/2018 Patient is more awake and oriented today. Able to sit in the chair. Otherwise still complaining of back pain despite being on fentanyl patch and lidocaine patch and Muscoda 10. Urine cultures showed ESBL E. coli and a a Acinetobactor Xu. Antibiotics have been changed to meropenem as per ID recommendations. Patient has been afebrile. Urology has seen the patient. Otherwise no acute overnight issues. 01/09/2018 Patient is able to sit in the chair today. More awake and alert. Otherwise still trying out of the bed. No fever no chills. Continued on antibiotics in the form of meropenem. Patient has been afebrile. Trial void once clinically improves. 01/10/2018 Patient is having diarrhea today. C. diff toxin negative otherwise. Stool cultures and ova parasites was ordered. Otherwise patient is awake and alert. Could not provide much history. Patient has been afebrile otherwise. No nausea no vomiting. Denied any chest pain. Denied any back pain today as well. 01/11/2018 Diarrhea has resolved. Otherwise patient is complaining of back pain lower which is chronic and is getting pain medications for that. Afebrile. No acute overnight issues. Patient is stable to be discharged to infection care facility with Lazcano catheter and follow with urology as the clinic. 01/12/2018 Patient today is complaining of lower back pain which is not getting better and pain management consult was placed. Otherwise patient is awaiting for transfer to extended care facility. No fever no chills. Continued antibiotics. No other acute overnight issues. 01/13/2018 Patient is comparing of back pain. Appreciate pain medication consult.. Patient will be continued on fentanyl patch with reduced dose. Otherwise no diarrhea. No abdominal pain. Patient is more awake and oriented. Otherwise patient is awaiting discharge to infection care facility pending other radiation. Patient be continued on Lazcano catheter and follow with urology in the clinic for repeat trial void Complete review of systems could not be obtained from the patient Current medications reviewed Objective - Vital Signs Vital signs: Vital Signs Temp 98.0 F 01/13/18 07:00 Pulse 73 01/13/18 07:00 Resp 16 01/13/18 07:00 BP 122/74 01/13/18 07:00 Pulse Ox 95 01/13/18 07:00 Intake & Output 01/12/18 01/13/18 01/13/18 18:59 06:59 18:59 Intake Total 820 300 780 Output Total 954 1775 600 Balance -134 -1475 180 Weight 68.039 kg 80 kg Intake: Intake, IV Titration 100 Amount Meropenem 1 gm In Sodium 100 Chloride 0.9% 100 ml @ 100 mls/hr IVPB Q8HR [facility] Rx#:[id number] Oral 720 300 780 Output: Urine 950 1775 600 Stool 4 Other: Voiding Method Indwelling Catheter Indwelling Catheter Indwelling Catheter # Voids 1 1 # Bowel Movements 1 - Exam Patient is lying in the bed comfortably, no acute distress, awake alert but confused and agitated HEENT: Normocephalic. Neck is supple. Pupils reactive. Nostrils clear. Oral cavity is moist. Ears reveal no drainage. Neck reveals no JVD, carotid bruits, or thyromegaly. CHEST EXAMINATION: Trachea is central. Symmetrical expansion. Diminished bilateral air entry. No wheezing no rhonchi. CARDIAC: Normal S1, S2 with no gallops. No murmurs ABDOMEN: Soft. Bowel sounds normal. No organomegaly. No abdominal bruits. Extremities: reveal no edema. No clubbing or cyanosis Neurologically awake, alert and oriented 1 with well-coordinated movements. No focal deficits noted Skin: No rash . Patient does have stage II decub ulcers in the sacral area with no discharge or foul-smelling Psychiatric: Could not be assessed completely Musculoskeletal: No joint swelling or deformity. Normal range of motion. - Labs CBC & Chem 7: 01/12/18 08:53 01/12/18 08:53 Labs: Abnormal Lab Results - Last 24 Hours (Table) 01/12/18 01/12/18 01/13/18 Range/Units 17:27 20:47 08:19 POC Glucose (mg/dL) 164 H 173 H 142 H (75-99) mg/dL 01/13/18 Range/Units 11:55 POC Glucose (mg/dL) 168 H (75-99) mg/dL Assessment and Plan Assessment: Acute urinary tract infection. Complicated likely related to Lazcano catheter E. coli and Acinetobacter UTI Altered mental status. Possible metabolic encephalopathy due to infection.. Patient is trying to get out of the bed.. Improving Stage II sacral decubitus ulcers. Dementia Poor functional status Hypertension Diabetes type 2 Recent urinary retention at outside hospital, currently on Lazcano catheter History of chronic back pain from remote injury. Pain fairly controlled DVT prophylaxis Plan: Antibiotics changed to meropenem. Pain management with Muscoda 10, fentanyl patch and lidocaine patch. Wound care for decubitus ulcers. Continue with home medications and insulin dosing. ID is following. Prognosis is guarded with multiple medical problems and comorbid conditions. Trial void once clinically stable Possible transfer to rehab once clinically improved Time with Patient: Greater than 30
== END 2018-01-14 15:31 | DRG 698 ==
LOC: EC 10:16 → 4MS4W 14:49 → OBSVTOIN 01-06 15:51 → 4MS4W 01-10 18:28
PROVIDERS: ADMIT Internal Medicine; ATTEND Internal Medicine
DX: T83.511A Infection and inflammatory reaction due to indwelling urethral catheter, initial encounter (principal); A41.50 Gram-negative sepsis, unspecified; L89.152 Pressure ulcer of sacral region, stage 2; G93.41 Metabolic encephalopathy; L89.323 Pressure ulcer of left buttock, stage 3; E11.9 Type 2 diabetes mellitus without complications; B96.20 Unspecified Escherichia coli [E. coli] as the cause of diseases classified elsewhere; E78.5 Hyperlipidemia, unspecified; F03.90 Unspecified dementia, unspecified severity, without behavioral disturbance, psychotic disturbance, mood disturbance, and anxiety; F32.9 Major depressive disorder, single episode, unspecified; G89.29 Other chronic pain; I10 Essential (primary) hypertension; N39.0 Urinary tract infection, site not specified; N40.1 Benign prostatic hyperplasia with lower urinary tract symptoms; Y84.6 Urinary catheterization as the cause of abnormal reaction of the patient, or of later complication, without mention of misadventure at the time of the procedure; Z79.4 Long term (current) use of insulin; Z79.899 Other long term (current) drug therapy; Z85.46 Personal history of malignant neoplasm of prostate; Z87.891 Personal history of nicotine dependence; Z96.649 Presence of unspecified artificial hip joint
CPT/HCPCS: 00000; 36415; 71046; 80048; 80053; 81001; 82140; 82550; 82553; 83605; 83735; 85025; 87040; 87045; 87046; 87077; 87086; 87186; 87324; 87328; 87329; 93005; 96361; 96365; 96366; 96375; 99285

== ENCOUNTER 2018-02-28 16:35 | Inpatient (IN) | payer MEDICARE, BC ==
[2018-02-28] MEDS ORDERED: SODIUM CHLORIDE 0.9% 500 ML IV ONE (18:32)
[2018-02-28] MEDS ORDERED: PIPERACILLIN-TAZOBACTAM 3.375 GM in DEXTROSE/WATER 1 50ML.BAG IVPB STA (19:08)
--- NOTE | 2018-02-28 19:14 | ED ---
Male Urogenital HPI - General Chief complaint: Urogenital Stated complaint: Weakness/pain in legs Time Seen by Provider: 02/28/18 18:16 Source: patient, family Mode of arrival: wheelchair Limitations: no limitations - History of Present Illness Initial comments: 77-year-old male patient with past medical history significant for dementia, diabetes mellitus, hyperlipidemia, hypertension, and BPH presents to the emergency department today with family for evaluation of continued urinary tract infection, chronic pain issues, and weakness. He states the patient has been treated for over a month for urinary tract infection. At one point he did have urinary retention and had an indwelling Lazcano catheter for approximately one month. He states that initially he was hospitalized and treated with IV antibiotics and then discharged home with prescription for Macrobid. They report that he has been having urinary symptoms including frequency and dysuria so they had a repeat urine test done at the doctor's office approximately a week ago. They state that the culture came back positive for ESBL E. coli. This ate also the patient has been having chronic low back pain with radiation down the right leg. States that his View3 was not working for him. They have been trying to get in to see a neurologist for pain management but had unable to do so. They state the patient complains of pain every day, states that he moans in pain all day long. He previously took methadone for this. They deny any known fevers however say patient is constantly cold and chilled. Patient has been complaining of nausea and belching today. Patient denies any recent rash, shortness breath, chest pain, abdominal pain, diarrhea, constipation, back pain, numbness, tingling, dizziness, headache, visual changes, or any other complaints. - Related Data Home Medications Medication Instructions Recorded Confirmed Acetaminophen [Tylenol] 650 mg PO Q6H PRN 01/05/18 02/28/18 Aspirin EC [Ecotrin Low Dose] 81 mg PO HS 01/05/18 02/28/18 Atorvastatin [Lipitor] 20 mg PO HS 01/05/18 02/28/18 Carvedilol [Coreg] 25 mg PO BID 01/05/18 02/28/18 Citalopram Hydrobromide [CeleXA] 20 mg PO DAILY 01/05/18 02/28/18 Dapagliflozin Propanediol [Farxiga] 10 mg PO DAILY 01/05/18 02/28/18 Diclofenac Sodium/Misoprostol 1 tab PO BID 01/05/18 02/28/18 [Arthrotec 75 mg-200 Mcg Tab] Donepezil [Aricept] 20 mg PO HS 01/05/18 02/28/18 Famotidine [Pepcid] 20 mg PO DAILY 01/05/18 02/28/18 Gabapentin [Neurontin] 200 mg PO TID 01/05/18 02/28/18 Insulin Regular, Human [NovoLIN R] See Protocol SQ ACHS@06,11,16,20 01/05/18 Lidocaine [Lidoderm 5% Patch] 1 patch TRANSDERM DAILY@0500 01/05/18 02/28/18 Losartan Potassium 100 mg PO DAILY 01/05/18 02/28/18 Magnesium 200 mg PO HS 01/05/18 02/28/18 Melatonin 5 mg PO HS@199901/05/18 02/28/18 Tamsulosin HCl [Flomax] 0.4 mg PO HS 01/05/18 02/28/18 amLODIPine [Norvasc] 10 mg PO DAILY 01/05/18 02/28/18 traZODone HCL [Desyrel] 50 mg PO HS@199901/05/18 02/28/18 Ipratropium-Albuterol Nebulize 3 ml INHALATION RT-QID 02/28/18 02/28/18 [Duoneb 0.5 mg-3 mg/3 ml Soln] Multivitamins, Thera [Multivitamin 1 tab PO DAILY@1200 02/28/18 02/28/18 (formulary)] Previous Rx's Medication Instructions Recorded Finasteride [Proscar] 5 mg PO DAILY tab 01/14/18 HYDROcodone/APAP 10-325MG [[place] 1 tab PO Q6H PRN #20 01/14/18 10-325] LORazepam [Ativan] 0.5 mg PO Q6H PRN #20 tablet 01/14/18 Allergies Allergy/AdvReac Type Severity Reaction Status Date / Time ciprofloxacin [From Cipro] Allergy Rash/Hives Verified 02/28/18 18:32 Review of Systems ROS Statement: Those systems with pertinent positive or pertinent negative responses have been documented in the HPI. ROS Other: All systems not noted in ROS Statement are negative. Past Medical History Past Medical History: Dementia, Diabetes Mellitus, Hyperlipidemia, Hypertension , Prostate Disorder Additional Past Medical History / Comment(s): Chronic IDC, prostate cancer- treated with observation, chronic incomplete bladder emptying History of Any Multi-Drug Resistant Organisms: ESBL Date of last positivie culture/infection: 01/05/18 MDRO Source:: ESBL URINE Additional Past Surgical History / Comment(s): Adriel hip replacement, one TKR, circumcision Past Anesthesia/Blood Transfusion Reactions: No Reported Reaction Past Psychological History: No Psychological Hx Reported Smoking Status: Former smoker Past Alcohol Use History: None Reported Past Drug Use History: None Reported - Past Family History Brother(s) Family Medical History: Cancer General Exam Limitations: no limitations General appearance: alert, in no apparent distress, other (This is a well- developed, well-nourished elderly male patient in no acute distress. Vital signs upon presentation are temperature 97.8F, pulse 66, respirations 18, blood pressure 125/59, pulse ox 93% on room air.) Eye exam: Present: normal appearance, PERRL, EOMI. Absent: scleral icterus, conjunctival injection, periorbital swelling ENT exam: Present: normal exam, normal oropharynx, mucous membranes moist Respiratory exam: Present: normal lung sounds bilaterally. Absent: respiratory distress, wheezes, rales, rhonchi, stridor Cardiovascular Exam: Present: regular rate, normal rhythm, normal heart sounds. Absent: systolic murmur, diastolic murmur, rubs, gallop, clicks GI/Abdominal exam: Present: soft, normal bowel sounds. Absent: distended, tenderness, guarding, rebound, rigid Extremities exam: Present: normal inspection, full ROM, normal capillary refill , other (Bilateral lower extremity skin is pink, warm, and dry. Cap refills less than 3 seconds. Post tibial and pedal pulses are 2+ and equal bilaterally. ). Absent: tenderness, pedal edema, joint swelling, calf tenderness Back exam: Present: normal inspection. Absent: CVA tenderness (R), CVA tenderness (L) Neurological exam: Present: alert, CN II-XII intact. Absent: oriented X3 ( Oriented 1) Psychiatric exam: Present: normal affect, normal mood Skin exam: Present: warm, dry, intact, normal color. Absent: rash Course Vital Signs 02/28/18 02/28/18 17:11 20:53 Temperature 97.8 F 98.9 F Pulse Rate 66 63 Respiratory 18 Rate Blood Pressure 125/59 125/62 O2 Sat by Pulse 93 L 94 L Oximetry Medical Decision Making - Medical Decision Making 77-year-old male patient presented to the emergency department today for evaluation of dysuria, urinary retention, and low back pain. Physical examination was relatively unremarkable. Labs reviewed and did show evidence of urinary tract infection with 1+ protein, 4+ glucose, large leukocyte esterase, 182 white blood cells, many white blood cell clumps, moderate bacteria, and rare mucous. White blood cell count was within normal range. Vital signs are stable. Patient temperature 99.5 oral. Family members did have a urine culture that was obtained on 02/26/2018, this did come back showing ESBL E. coli , this was susceptible to Zosyn. Did give a dose here in the emergency department today we will continue this. Patient did have urinary retention here in the emergency department, the latter scan showed greater than 200 mL. Did perform straight cath and got approximately 230 mL out. Did discuss the case with Joy Klein ONCOLOGY NURSE NAVIGATOR for Dr. Granger. She agrees to admission. Dr. Barney will be consulted for ID. - Lab Data Result diagrams: 02/28/18 19:23 02/28/18 19:23 Lab Results 02/28/18 02/28/18 02/28/18 Range/Units 19:23 19:23 19:23 WBC 7.7 (3.8-10.6) k/uL RBC 4.04 L (4.30-5.90) m/uL Hgb 11.7 L (13.0-17.5) gm/dL Hct 36.3 L (39.0-53.0) % MCV 89.8 (80.0-100.0) fL MCH 28.9 (25.0-35.0) pg MCHC 32.2 (31.0-37.0) g/dL RDW 15.8 H (11.5-15.5) % Plt Count 285 (150-450) k/uL Neutrophils % 68 % Lymphocytes % 16 % Monocytes % 10 % Eosinophils % 3 % Basophils % 0 % Neutrophils # 5.2 (1.3-7.7) k/uL Lymphocytes # 1.2 (1.0-4.8) k/uL Monocytes # 0.8 (0-1.0) k/uL Eosinophils # 0.2 (0-0.7) k/uL Basophils # 0.0 (0-0.2) k/uL Hypochromasia Slight Poikilocytosis Moderate Sodium 143 (137-145) mmol/L Potassium 3.9 (3.5-5.1) mmol/L Chloride 105 (98-107) mmol/L Carbon Dioxide 27 (22-30) mmol/L Anion Gap 11 mmol/L BUN 17 (9-20) mg/dL Creatinine 1.00 (0.66-1.25) mg/dL Est GFR (CKD-EPI)AfAm 83 (>60 ml/min/1.73 sqM) Est GFR (CKD-EPI)NonAf 72 (>60 ml/min/1.73 sqM) Glucose 100 H (74-99) mg/dL Plasma Lactic Acid [place] 0.9 (0.7-2.0) mmol/L Calcium 9.0 (8.4-10.2) mg/dL Total Bilirubin 0.5 (0.2-1.3) mg/dL AST 28 (17-59) U/L ALT 28 (21-72) U/L Alkaline Phosphatase 114 (38-126) U/L Total Protein 6.1 L (6.3-8.2) g/dL Albumin 3.2 L (3.5-5.0) g/dL Amylase 44 (30-110) U/L Lipase 54 (23-300) U/L Urine Color Urine Appearance (Clear) Urine pH (5.0-8.0) Ur Specific [place] (1.001-1.035) Urine Protein (Negative) Urine Glucose (UA) (Negative) Urine Ketones (Negative) Urine Blood (Negative) Urine Nitrite (Negative) Urine Bilirubin (Negative) Urine Urobilinogen (<2.0) mg/dL Ur Leukocyte Esterase (Negative) Urine RBC (0-5) /hpf Urine WBC (0-5) /hpf Urine WBC Clumps (None) /hpf Urine Bacteria (None) /hpf Urine Mucus (None) /hpf 02/28/18 Range/Units 20:35 WBC (3.8-10.6) k/uL RBC (4.30-5.90) m/uL Hgb (13.0-17.5) gm/dL Hct (39.0-53.0) % MCV (80.0-100.0) fL MCH (25.0-35.0) pg MCHC (31.0-37.0) g/dL RDW (11.5-15.5) % Plt Count (150-450) k/uL Neutrophils % % Lymphocytes % % Monocytes % % Eosinophils % % Basophils % % Neutrophils # (1.3-7.7) k/uL Lymphocytes # (1.0-4.8) k/uL Monocytes # (0-1.0) k/uL Eosinophils # (0-0.7) k/uL Basophils # (0-0.2) k/uL Hypochromasia Poikilocytosis Sodium (137-145) mmol/L Potassium (3.5-5.1) mmol/L Chloride (98-107) mmol/L Carbon Dioxide (22-30) mmol/L Anion Gap mmol/L BUN (9-20) mg/dL Creatinine (0.66-1.25) mg/dL Est GFR (CKD-EPI)AfAm (>60 ml/min/1.73 sqM) Est GFR (CKD-EPI)NonAf (>60 ml/min/1.73 sqM) Glucose (74-99) mg/dL Plasma Lactic Acid [place] (0.7-2.0) mmol/L Calcium (8.4-10.2) mg/dL Total Bilirubin (0.2-1.3) mg/dL AST (17-59) U/L ALT (21-72) U/L Alkaline Phosphatase (38-126) U/L Total Protein (6.3-8.2) g/dL Albumin (3.5-5.0) g/dL Amylase (30-110) U/L Lipase (23-300) U/L Urine Color Yellow Urine Appearance Cloudy (Clear) Urine pH 5.5 (5.0-8.0) Ur Specific [place] 1.016 (1.001-1.035) Urine Protein 1+ H (Negative) Urine Glucose (UA) 4+ H (Negative) Urine Ketones Negative (Negative) Urine Blood Negative (Negative) Urine Nitrite Negative (Negative) Urine Bilirubin Negative (Negative) Urine Urobilinogen <2.0 (<2.0) mg/dL Ur Leukocyte Esterase Large H (Negative) Urine RBC 5 (0-5) /hpf Urine WBC 182 H (0-5) /hpf Urine WBC Clumps Many H (None) /hpf Urine Bacteria Moderate H (None) /hpf Urine Mucus Rare H (None) /hpf - Radiology Data Radiology results: report reviewed, image reviewed 2 views of the abdomen shows scattered gas and nondistended stomach and small bowel loops. Gas and fecal material seen in nondistended colon. Scattered vascular calcification is present. Lung bases are clear. No pneumoperitoneum is seen. There is moderate to severe multilevel disc space narrowing throughout the spine. There is partial visualization of the metallic hardware from bilateral hip arthroplasties. Impression by Dr. Blandon shows overall nonobstructive bowel gas pattern. Disposition Clinical Impression: UTI due to extended-spectrum beta lactamase (ESBL) producing Escherichia coli, Failure of outpatient treatment, Back pain Disposition: ADMITTED IP TO THIS [facility] Condition: Serious Referrals: Gianfranco Dela Cruz DO [Primary Care Provider] - 1-2 days Decision to Admit Reason: Admit from EC Decision Date: 02/28/18 Decision Time: 21:13
--- NOTE | 2018-02-28 19:25 | XR ---
EXAMINATION TYPE: XR KUB DATE OF EXAM: 02/28/2018 7:13 PM CLINICAL HISTORY: UTI and pain. TECHNIQUE: Two Upright KUB images of the abdomen are obtained. COMPARISON: None. FINDINGS: Scattered gas is seen in non-distended stomach and small bowel loops. Gas and fecal materia l is seen in non-distended colon. Scattered vascular calcification is present. Lung bases are clear. No pneumoperitoneum is seen. There is moderate to severe multilevel disc space narrowing throughout t he spine. There is partial visualization of metallic hardware from bilateral hip arthroplasties. IMPRESSION: Overall nonobstructive bowel gas pattern.
[2018-02-28 19:36] LABS: Basophils % (A) 0 %; Eosinophils # (A) 0.2 k/uL (0-0.7); Eosinophils % (A) 3 %; HCT 36.3 % (39.0-53.0); HGB 11.7 gm/dL (13.0-17.5); Hypochromasia Slight; Lymphocytes # (A) 1.2 k/uL (1.0-4.8); Lymphocytes % (A) 16 %; MCH 28.9 pg (25.0-35.0); MCHC 32.2 g/dL (31.0-37.0); MCV 89.8 fL (80.0-100.0); Mean Platelet Volume 6.8; Monocytes # (A) 0.8 k/uL (0-1.0); Monocytes % (A) 10 %; Neutrophils # (A) 5.2 k/uL (1.3-7.7); Neutrophils % (A) 68 %; Platelet Count 285 k/uL (150-450); Poikilocytosis Moderate; RBC 4.04 m/uL (4.30-5.90); RDW 15.8 % (11.5-15.5); WBC 7.7 k/uL (3.8-10.6)
[2018-02-28 19:51] LABS: Albumin 3.2 g/dL (3.5-5.0); Potassium 3.9 mmol/L (3.5-5.1); Total Bilirubin 0.5 mg/dL (0.2-1.3); Total Protein 6.1 g/dL (6.3-8.2)
[2018-02-28] MEDS ORDERED: HYDROcodone/APAP 10-325MG 1 EACH TAB PO ONE (20:39)
[2018-02-28 21:03] LABS: Appearance,Urine Cloudy (Clear); Bacteria,Urine Moderate /hpf; Bilirubin,Urine Negative (Negative); Blood,Urine Negative (Negative); Color,Urine Yellow; Glucose,Urine (UA) 4+ (Negative); Ketones,Urine Negative (Negative); Leukocyte Esterase,Urine Large (Negative); Mucus,Urine Rare /hpf; Nitrite,Urine Negative (Negative); PH, Urine 5.5 (5.0-8.0); Protein,Urine 1+ (Negative); RBC,Urine 5 /hpf (0-5); Specific Gravity,Urine 1.016 (1.001-1.035); Urobilinogen,Urine <2.0 mg/dL (<2.0); WBC,Urine 182 /hpf (0-5)
[2018-02-28] MEDS ORDERED: ONDANSETRON 4 MG/2 ML VIAL IVP PRN (21:09)
[2018-02-28] MEDS ORDERED: ACETAMINOPHEN TAB 325 MG TAB PO PRN (21:09)
[2018-02-28] MEDS ORDERED: NALOXONE 0.4 MG/ML 1 ML VIAL IV PRN (21:09)
[2018-02-28] MEDS ORDERED: LORazepam 1 MG TAB PO STA (21:28)
[2018-02-28] MEDS ORDERED: LORazepam 0.5 MG TAB PO PRN (21:29)
[2018-02-28] MEDS ORDERED: HYDROcodone/APAP 10-325MG 1 EACH TAB PO PRN (21:29)
[2018-02-28] MEDS ORDERED: LORazepam 2 MG/ML INJ IV STA (23:59)
[2018-03-01] MEDS: ATORVASTATIN 20 MG TAB PO SCH ×2 (00:19→20:19)
[2018-03-01] MEDS: TAMSULOSIN 0.4 MG CAP.ER.24H PO SCH ×2 (00:19→20:58)
[2018-03-01] MEDS: GABAPENTIN 100 MG CAP PO SCH ×4 (00:19→20:58)
[2018-03-01] MEDS: CARVEDILOL 12.5 MG TAB PO SCH ×3 (00:20→17:51)
[2018-03-01] MEDS: MAGNESIUM OXIDE 400 MG TAB PO SCH ×2 (00:20→20:19)
[2018-03-01] MEDS: traZODone HCL 50 MG TAB PO SCH ×2 (00:21→20:19)
[2018-03-01] MEDS: MELATONIN 5 MG TABLET PO SCH ×2 (00:23→20:18)
[2018-03-01] MEDS ORDERED: PIPERACILLIN-TAZOBACTAM 3.375 GM in DEXTROSE/WATER 1 50ML.BAG IVPB SCH (04:00)
[2018-03-01] MEDS: DONEPEZIL 10 MG TAB PO SCH ×2 (04:06→20:19)
[2018-03-01] MEDS: LIDOCAINE 5% PATCH TOPICAL SCH (04:23)
[2018-03-01 07:00] LABS: Glucose,Whole Blood 93 mg/dL (75-99)
[2018-03-01] MEDS: IPRATROPIUM-ALBUTEROL 3 ML NEB INHALATION SCH ×4 (07:32→20:49)
[2018-03-01] MEDS: SODIUM CHLORIDE 0.9% 1,000 ML IV SCH ×2 (08:19→17:52)
[2018-03-01 08:34] LABS: Basophils % (A) 0 %; Eosinophils # (A) 0.3 k/uL (0-0.7); Eosinophils % (A) 4 %; HCT 35.5 % (39.0-53.0); HGB 11.4 gm/dL (13.0-17.5); Hypochromasia Moderate; Lymphocytes % (A) 14 %; MCH 29.2 pg (25.0-35.0); MCV 91.1 fL (80.0-100.0); Monocytes # (A) 0.8 k/uL (0-1.0); Monocytes % (A) 10 %; Neutrophils # (A) 5.1 k/uL (1.3-7.7); Neutrophils % (A) 69 %; Platelet Count 257 k/uL (150-450); Poikilocytosis Slight; RDW 15.7 % (11.5-15.5); WBC 7.4 k/uL (3.8-10.6)
[2018-03-01] MEDS ORDERED: Dapagliflozin Propanediol [Farxiga] PO SCH (09:00)
[2018-03-01 09:04] LABS: Potassium 3.9 mmol/L (3.5-5.1)
[2018-03-01] MEDS: LOSARTAN 50 MG TAB PO SCH (09:33)
[2018-03-01] MEDS: FINASTERIDE 5 MG TAB PO SCH (09:33)
[2018-03-01] MEDS: amLODIPine 10 MG TAB PO SCH (09:34)
[2018-03-01] MEDS: FAMOTIDINE 20 MG TAB PO SCH (09:35)
[2018-03-01] MEDS: CITALOPRAM HYDROBROMIDE 20 MG TAB PO SCH (09:35)
[2018-03-01] MEDS: MISOPROSTOL 200 MCG TAB PO SCH ×2 (09:35→20:22)
[2018-03-01] MEDS: ETODOLAC 400 MG TAB PO SCH ×2 (09:35→20:19)
[2018-03-01 12:27] LABS: Glucose,Whole Blood 119 mg/dL (75-99)
[2018-03-01] MEDS: MEROPENEM 1 GM in SODIUM CHLORIDE 0.9% 100 ML IVPB SCH ×2 (12:31→20:14)
[2018-03-01] MEDS: MULTIVITAMINS, THERA 1 EACH TAB PO SCH (12:32)
[2018-03-01 17:18] LABS: Glucose,Whole Blood 165 mg/dL (75-99)
[2018-03-01] MEDS ORDERED: LOPERAMIDE 2 MG CAP PO PRN (19:39)
[2018-03-01] MEDS: ASPIRIN 81 MG PO SCH (20:19)
[2018-03-01 20:47] LABS: Glucose,Whole Blood 109 mg/dL (75-99)
--- NOTE | 2018-03-02 00:02 | P.HPIM ---
History of Present Illness H&P Date: 03/01/18 Chief Complaint: Weakness and back pain 77-year-old male patient with past medical history significant for dementia, diabetes mellitus, hyperlipidemia, hypertension, and BPH presents to the emergency department today with family for evaluation of continued urinary tract infection, chronic pain issues, and weakness. He states the patient has been treated for over a month for urinary tract infection. At one point he did have urinary retention and had an indwelling Lazcano catheter for approximately one month. He states that initially he was hospitalized and treated with IV antibiotics and then discharged to rehab with prescription for Macrobid. They report that he has been having urinary symptoms including frequency and dysuria so they had a repeat urine test done at the doctor's office approximately a week ago. They state that the culture came back positive for ESBL E. coli. patient has been having chronic low back pain with radiation down the right leg. States that his Logan was not working for him. They have been trying to get in to see a neurologist for pain management but had unable to do so. They state the patient complains of pain every day, states that he moans in pain all day long. He previously took methadone for this. They deny any known fevers however say patient is constantly cold and chilled. Patient has been complaining of nausea and belching today. Patient denies any recent rash, shortness breath, chest pain, abdominal pain, diarrhea, constipation, back pain , numbness, tingling, dizziness, headache, visual changes, or any other complaints. KUB x-ray showed normal bowel gas pattern Review of Systems Constitutional: Patient denies any fever or chills . Patient does have generalized weakness. No weight loss. Abdomen: Patient denied nausea vomiting and diarrhea and abdominal pain. Cardiovascular: Patient denies any chest pain or short of breath no palpitations. Respiratory: patient denied any cough is from production. No shortness of breath Neurologic: Patient denied any numbness or tingling headache. Musculoskeletal: Back pain. Patient denies any complaints of joint swelling or deformity. Skin: Negative Psychiatric: Negative Endocrine: No heat or cold intolerance. No recent weight gain. Genitourinary: No dysuria or hematuria. All other 14 point ROS negative except the above Past Medical History Past Medical History: Dementia, Diabetes Mellitus, Hyperlipidemia, Hypertension , Prostate Disorder, Skin Disorder Additional Past Medical History / Comment(s): Pt recently admitted to [facility] on 01/01/18 with AMS, UTI/sepsis, L buttock pressure ulcer stage III-pt states now nearly healed. Other hx: BPH, prostate cancer-monitoring, chronic incomplete bladder emptying/retention, IDC, NIDDM type II, ALANA-seldom uses device. History of Any Multi-Drug Resistant Organisms: ESBL Date of last positivie culture/infection: 02/26/18 per family-culture done at PCP office MDRO Source:: ESBL URINE Additional Past Surgical History / Comment(s): Adriel hip replacement, L TKR, circumcision, midline IV insertion-discontinued. Past Anesthesia/Blood Transfusion Reactions: No Reported Reaction Smoking Status: Former smoker - Past Family History Brother(s) Family Medical History: Cancer Father Family Medical History: No Reported History Additional Family Medical History / Comment(s): Father was pretty healthy and lived into his 80s. Mother Additional Family Medical History / Comment(s): Mother had a bening tumor posterior neck that caused paralysis. Medications and Allergies Home Medications Medication Instructions Recorded Confirmed Type Acetaminophen [Tylenol] 650 mg PO Q6H PRN 01/05/18 02/28/18 History Aspirin EC [Ecotrin Low Dose] 81 mg PO HS 01/05/18 02/28/18 History Atorvastatin [Lipitor] 20 mg PO HS 01/05/18 02/28/18 History Carvedilol [Coreg] 25 mg PO BID 01/05/18 02/28/18 History Citalopram Hydrobromide [CeleXA] 20 mg PO DAILY 01/05/18 02/28/18 History Dapagliflozin Propanediol [Farxiga] 10 mg PO DAILY 01/05/18 02/28/18 History Diclofenac Sodium/Misoprostol 1 tab PO BID 01/05/18 02/28/18 History [Arthrotec 75 mg-200 Mcg Tab] Donepezil [Aricept] 20 mg PO HS 01/05/18 02/28/18 History Famotidine [Pepcid] 20 mg PO DAILY 01/05/18 02/28/18 History Gabapentin [Neurontin] 200 mg PO TID 01/05/18 02/28/18 History Insulin Regular, Human [NovoLIN R] See Protocol SQ ACHS@06,11,16,20 01/05/18 History Lidocaine [Lidoderm 5% Patch] 1 patch TRANSDERM DAILY@0500 01/05/18 02/28/18 History Losartan Potassium 100 mg PO DAILY 01/05/18 02/28/18 History Magnesium 200 mg PO HS 01/05/18 02/28/18 History Melatonin 5 mg PO HS@199901/05/18 02/28/18 History Tamsulosin HCl [Flomax] 0.4 mg PO HS 01/05/18 02/28/18 History amLODIPine [Norvasc] 10 mg PO DAILY 01/05/18 02/28/18 History traZODone HCL [Desyrel] 50 mg PO HS@199901/05/18 02/28/18 History Finasteride [Proscar] 5 mg PO DAILY tab 01/14/18 02/28/18 Rx HYDROcodone/APAP 10-325MG [[place] 1 tab PO Q6H PRN #20 01/14/18 02/28/18 Rx 10-325] LORazepam [Ativan] 0.5 mg PO Q6H PRN #20 tablet 01/14/18 02/28/18 Rx Ipratropium-Albuterol Nebulize 3 ml INHALATION RT-QID 02/28/18 02/28/18 History [Duoneb 0.5 mg-3 mg/3 ml Soln] Multivitamins, Thera [Multivitamin 1 tab PO DAILY@1200 02/28/18 02/28/18 History (formulary)] Allergies Allergy/AdvReac Type Severity Reaction Status Date / Time ciprofloxacin [From Cipro] Allergy Rash/Hives Verified 02/28/18 18:32 Physical Exam Vitals: Vital Signs Temp Pulse Resp BP Pulse Ox 03/01/18 07:46 89 03/01/18 07:35 88 03/01/18 07:17 98.4 F 73 20 141/66 92 L 03/01/18 04:28 84 20 130/61 92 L 02/28/18 20:53 98.9 F 63 125/62 94 L 02/28/18 17:11 97.8 F 66 18 125/59 93 L Intake and Output 02/28/18 03/01/18 03/01/18 22:59 06:59 14:59 Output Total 200 800 Balance -200 -800 Output: Urine 200 800 Uretheral (Lazcano) 200 Other: Weight 85.729 kg PHYSICAL EXAMINATION: Patient is lying in the bed comfortably, no acute distress, awake alert and oriented 1. Patient is a poor historian.. HEENT: Normocephalic. Neck is supple. Pupils reactive. Nostrils clear. Oral cavity is moist. Ears reveal no drainage. Neck reveals no JVD, carotid bruits, or thyromegaly. CHEST EXAMINATION: Trachea is central. Symmetrical expansion. Lung rodriguez clear to auscultation and percussion. CARDIAC: Normal S1, S2 with no gallops. No murmurs ABDOMEN: Soft. Bowel sounds normal. No organomegaly. No abdominal bruits. Extremities: reveal no edema. No clubbing or cyanosis Neurologically awake, alert, oriented x1 with well-coordinated movements. No focal deficits noted Skin: No rash or skin lesions. Psychiatric: Cooperative. Nonsuicidal Musculoskeletal: No joint swelling or deformity. Normal range of motion. Results CBC & Chem 7: 03/01/18 08:08 03/01/18 08:08 Labs: Abnormal Lab Results - Last 24 Hours (Table) 02/28/18 02/28/18 02/28/18 Range/Units 19:23 19:23 20:35 RBC 4.04 L (4.30-5.90) m/uL Hgb 11.7 L (13.0-17.5) gm/dL Hct 36.3 L (39.0-53.0) % RDW 15.8 H (11.5-15.5) % Glucose 100 H (74-99) mg/dL Total Protein 6.1 L (6.3-8.2) g/dL Albumin 3.2 L (3.5-5.0) g/dL Urine Protein 1+ H (Negative) Urine Glucose (UA) 4+ H (Negative) Ur Leukocyte Esterase Large H (Negative) Urine WBC 182 H (0-5) /hpf Urine WBC Clumps Many H (None) /hpf Urine Bacteria Moderate H (None) /hpf Urine Mucus Rare H (None) /hpf 03/01/18 03/01/18 Range/Units 08:08 08:08 RBC 3.90 L (4.30-5.90) m/uL Hgb 11.4 L (13.0-17.5) gm/dL Hct 35.5 L (39.0-53.0) % RDW 15.7 H (11.5-15.5) % Glucose 124 H (74-99) mg/dL Total Protein (6.3-8.2) g/dL Albumin (3.5-5.0) g/dL Urine Protein (Negative) Urine Glucose (UA) (Negative) Ur Leukocyte Esterase (Negative) Urine WBC (0-5) /hpf Urine WBC Clumps (None) /hpf Urine Bacteria (None) /hpf Urine Mucus (None) /hpf Microbiology - Last 24 Hours (Table) 02/28/18 20:35 Urine Culture - Preliminary Urine,Catheterized Thrombosis Risk Factor Assmnt - DVT/VTE Prophylaxis DVT/VTE Prophylaxis: Pharmacologic Prophylaxis ordered - Choose All That Apply Any of the Below Risk Factors Present?: Yes Each Factor Represents 1 point: Obesity (BMI >25) Other Risk Factors: Yes Each Risk Factor Represents 3 Points: Age 75 years or older Other congenital or acquired thrombophilia - If yes, enter type in comment: No Thrombosis Risk Factor Assessment Total Risk Factor Score: 4 Thrombosis Risk Factor Assessment Level: Moderate Risk Assessment and Plan Assessment: ESBL E. coli urinary tract infection. Failed outpatient antibiotic therapy. Hypertension Diabetes type 2 Dementia BPH and thickened bladder mucosa. Outpatient urology follow-up recommended Chronic incomplete bladder emptying/retention Obstructive sleep apnea. Not using CPAP. Left buttock pressure ulcer stage III now healed Hyperlipidemia Osteoarthritis Previous history of smoking DVT prophylaxis Plan: Patient was given a dose of Zosyn in the ER. Patient will be started on meropenem as per urine culture sensitivity report. ID will be consulted. We will continue the home medications and follow up closely. Gentle hydration and further recommendations based on the clinical course. Prognosis is guarded with multiple medical problems and comorbid conditions. Time with Patient: Greater than 30
[2018-03-02] MEDS: HEPARIN SODIUM,PORCINE 5,000 UNIT/ML 1 ML VIAL SQ SCH ×4 (00:08→22:27)
--- NOTE | 2018-03-02 00:16 | P.CONS ---
History of Present Illness - Reason for Consult Consult date: 03/01/18 - Chief Complaint pain - History of Present Illness 77-year-old male presents to Hospital from the extended care facility with alteration of his mental status. This 77-year-old gentleman has underlying dementia and was recently hospitalized an outside hospital where he was found evidence of urinary retention as well as urinary tract infection. It is related that he was treated for his urinary infection but apparently developed pressure ulcerations. the patient was imporved and transfered to [facility] but now has worseing pain such that family requests pain consult apparently was long delay and since patient was miserable they brought him to hospital. Did have concerns to a month long UTI, but were aware of recent negative cultures but were concerned due to his urinary retention. Patient has dementia and provides little assistance except that his pain is much better. and he wants to go home now. Review of Systems ROS unobtainable: due to mental status Past Medical History Past Medical History: Dementia, Diabetes Mellitus, Hyperlipidemia, Hypertension , Prostate Disorder, Skin Disorder Additional Past Medical History / Comment(s): Pt recently admitted to [facility] on 01/01/18 with AMS, UTI/sepsis, L buttock pressure ulcer stage III-pt states now nearly healed. Other hx: BPH, prostate cancer-monitoring, chronic incomplete bladder emptying/retention, IDC, NIDDM type II, ALANA-seldom uses device. History of Any Multi-Drug Resistant Organisms: ESBL Year Discovered:: 02/26/18 per family-culture done at PCP office MDRO Source:: ESBL URINE Additional Past Surgical History / Comment(s): Adriel hip replacement, L TKR, circumcision, midline IV insertion-discontinued. Past Anesthesia/Blood Transfusion Reactions: No Reported Reaction Smoking Status: Former smoker - Past Family History Brother(s) Family Medical History: Cancer Father Family Medical History: No Reported History Additional Family Medical History / Comment(s): Father was pretty healthy and lived into his 80s. Mother Additional Family Medical History / Comment(s): Mother had a bening tumor posterior neck that caused paralysis. Medications and Allergies Home Medications and Allergies Comment(s): Current Medications Acetaminophen (Tylenol Tab) 650 mg PO Q6HR PRN PRN Reason: Mild Pain or Fever > 100.5 Hydrocodone Bitart/Acetaminophen ([place] 10) 1 each PO Q6H PRN PRN Reason: Pain Albuterol/Ipratropium (Duoneb 0.5 Mg-3 Mg/3 Ml Soln) 3 ml INHALATION RT-QID [facility] Last Admin: 03/01/18 20:49 Dose: 3 ml Amlodipine Besylate (Norvasc) 10 mg PO DAILY [facility] Last Admin: 03/01/18 09:34 Dose: 10 mg Aspirin (Aspirin) 81 mg PO HS [facility] Last Admin: 03/01/18 20:19 Dose: 81 mg Atorvastatin Calcium (Lipitor) 20 mg PO HS [facility] Last Admin: 03/01/18 20:19 Dose: 20 mg Carvedilol (Coreg) 25 mg PO BID-W/MEALS [facility] Last Admin: 03/01/18 17:51 Dose: 25 mg Citalopram Hydrobromide (Celexa) 20 mg PO DAILY [facility] Last Admin: 03/01/18 09:35 Dose: 20 mg Donepezil HCl (Aricept) 20 mg PO [facility] Last Admin: 03/01/18 20:19 Dose: 20 mg Etodolac (Lodine) 400 mg PO BID [facility] Last Admin: 03/01/18 20:19 Dose: 400 mg Famotidine (Pepcid) 20 mg PO DAILY [facility] Last Admin: 03/01/18 09:35 Dose: 20 mg Finasteride (Proscar) 5 mg PO DAILY [facility] Last Admin: 03/01/18 09:33 Dose: 5 mg Gabapentin (Neurontin) 200 mg PO TID [facility] Last Admin: 03/01/18 20:58 Dose: 200 mg Heparin Sodium (Porcine) (Heparin) 5,000 unit SQ Q8HR [facility] Sodium Chloride (Saline 0.9%) 1,000 mls @ 50 mls/hr IV .Q20H [facility] Last Admin: 03/01/18 17:52 Dose: 50 mls/hr Meropenem 1 gm/ Sodium (Chloride) 100 mls @ 200 mls/hr IVPB Q8H [facility] Last Admin: 03/01/18 20:14 Dose: 200 mls/hr Lidocaine (Lidoderm) 1 patch TOPICAL DAILY@0500 [facility] Last Admin: 03/01/18 04:23 Dose: 1 patch Loperamide HCl (Imodium) 2 mg PO QID PRN PRN Reason: Diarrhea Lorazepam (Ativan) 0.5 mg PO Q6H PRN PRN Reason: Anxiety Losartan Potassium (Cozaar) 100 mg PO DAILY [facility] Last Admin: 03/01/18 09:33 Dose: 100 mg Magnesium Oxide (Mag-Ox) 200 mg PO HS [facility] Last Admin: 03/01/18 20:19 Dose: 200 mg Melatonin (Melatonin) 5 mg PO HS@1999 [facility] Last Admin: 03/01/18 20:18 Dose: 5 mg Misoprostol (Cytotec) 200 mcg PO BID [facility] Last Admin: 03/01/18 20:22 Dose: 200 mcg Multivitamins (Theragran) 1 each PO DAILY@1200 [facility] Last Admin: 03/01/18 12:32 Dose: 1 each Naloxone HCl (Narcan) 0.2 mg IV Q2M PRN PRN Reason: Opioid Reversal Dapagliflozin Propanediol [Farxiga ] 10 mg PO DAILY [facility] Ondansetron HCl (Zofran) 4 mg IVP Q8HR PRN PRN Reason: Nausea And Vomiting Tamsulosin HCl (Flomax) 0.4 mg PO [facility] Last Admin: 03/01/18 20:58 Dose: 0.4 mg Trazodone HCl (Desyrel) 50 mg PO HS@1999 [facility] Last Admin: 03/01/18 20:19 Dose: 50 mg Home Medications Medication Instructions Recorded Confirmed Type Acetaminophen [Tylenol] 650 mg PO Q6H PRN 01/05/18 02/28/18 History Aspirin EC [Ecotrin Low Dose] 81 mg PO HS 01/05/18 02/28/18 History Atorvastatin [Lipitor] 20 mg PO HS 01/05/18 02/28/18 History Carvedilol [Coreg] 25 mg PO BID 01/05/18 02/28/18 History Citalopram Hydrobromide [CeleXA] 20 mg PO DAILY 01/05/18 02/28/18 History Dapagliflozin Propanediol [Farxiga] 10 mg PO DAILY 01/05/18 02/28/18 History Diclofenac Sodium/Misoprostol 1 tab PO BID 01/05/18 02/28/18 History [Arthrotec 75 mg-200 Mcg Tab] Donepezil [Aricept] 20 mg PO HS 01/05/18 02/28/18 History Famotidine [Pepcid] 20 mg PO DAILY 01/05/18 02/28/18 History Gabapentin [Neurontin] 200 mg PO TID 01/05/18 02/28/18 History Insulin Regular, Human [NovoLIN R] See Protocol SQ ACHS@06,11,16,20 01/05/18 History Lidocaine [Lidoderm 5% Patch] 1 patch TRANSDERM DAILY@0500 01/05/18 02/28/18 History Losartan Potassium 100 mg PO DAILY 01/05/18 02/28/18 History Magnesium 200 mg PO HS 01/05/18 02/28/18 History Melatonin 5 mg PO HS@199901/05/18 02/28/18 History Tamsulosin HCl [Flomax] 0.4 mg PO HS 01/05/18 02/28/18 History amLODIPine [Norvasc] 10 mg PO DAILY 01/05/18 02/28/18 History traZODone HCL [Desyrel] 50 mg PO HS@199901/05/18 02/28/18 History Finasteride [Proscar] 5 mg PO DAILY tab 01/14/18 02/28/18 Rx HYDROcodone/APAP 10-325MG [[place] 1 tab PO Q6H PRN #20 01/14/18 02/28/18 Rx 10-325] LORazepam [Ativan] 0.5 mg PO Q6H PRN #20 tablet 01/14/18 02/28/18 Rx Ipratropium-Albuterol Nebulize 3 ml INHALATION RT-QID 02/28/18 02/28/18 History [Duoneb 0.5 mg-3 mg/3 ml Soln] Multivitamins, Thera [Multivitamin 1 tab PO DAILY@1200 02/28/18 02/28/18 History (formulary)] Allergies Allergy/AdvReac Type Severity Reaction Status Date / Time ciprofloxacin [From Cipro] Allergy Rash/Hives Verified 02/28/18 18:32 Physical Exam Vitals: Vital Signs Temp Pulse Pulse Resp BP BP Pulse Ox 03/01/18 22:00 98.6 F 61 17 126/68 93 L 03/01/18 20:55 88 03/01/18 20:49 88 03/01/18 16:00 69 18 03/01/18 15:25 90 03/01/18 15:16 90 03/01/18 15:15 97.8 F 69 18 145/67 91 L 03/01/18 11:13 92 03/01/18 11:07 88 03/01/18 08:00 69 18 03/01/18 07:46 89 03/01/18 07:35 88 03/01/18 07:17 98.4 F 73 20 141/66 92 L 03/01/18 04:28 84 20 130/61 92 L Intake and Output 03/01/18 03/01/18 03/02/18 14:59 22:59 06:59 Intake Total 1890 Output Total 1000 1002 Balance 890 -1002 Intake: Intake, IV Titration 450 Amount Meropenem 1 gm In Sodium 100 Chloride 0.9% 100 ml @ 200 mls/hr IVPB Q8H [facility] Rx#:[id number] Piperacillin-Tazobactam 3 50 .375 gm In Dextrose/Water 1 50ml.bag @ 12.5 mls/hr IVPB Q8H [facility] Rx#: [id number] Sodium Chloride 0.9% 1, 300 000 ml @ 50 mls/hr IV . Q20H [facility] Rx#:[id number] Oral 1440 Output: Urine 1000 1000 Stool 2 Other: Voiding Method Toilet Toilet Urinal Urinal # Voids 5 77-year-old male in no distress, HEENT: Anicteric, conjunctiva are pink and moist, nasal or oral mucosa are without lesion. The neck is supple without lymphadenopathy or thyromegaly. No oral thrush is noted. Oral mucosa is slightly dry but no oral lesions are seen Lungs: Symmetrical air entry is noted, expiratory scattered wheezes are heard but no bronchial sounds or egophony noted Heart: Regular rate and rhythm with an audible S1-S2, no S3 loud S4 noted. No significant murmur click or rub noted. Abdomen: Positive bowel sounds, soft and nontender, there is no palpable masses or organomegaly. Abdomen is without guarding or rebound. Extremities:Upper extremities reveal evidence of equal pulses, no lesions are seen, no petechiae or telangiectasia. The lower extremities have no significant edema, peripheral pulses were 2+ and symmetric, no lesions or ulcerations are seen. Capillary refill was brisk. Skin: No significant rashes are seen. The patient does have evidence of healing of the pressure ulceration on the buttocks area. Neuro:Awake and alert, oriented to person only. As far as following commands opened his mouth when requested but didn't follow any other commands correctly and could not assist at all on rolling to his side. Musculoskeletal: Patient is with generalized weakness No acute joint effusions are noted. Lymph: No cervical, supraclavicular, axillary, epitrochlear, or inguinal lymphadenopathy was noted. Results CBC & Chem 7: 03/01/18 08:08 03/01/18 08:08 Labs: Abnormal Lab Results - Last 24 Hours (Table) 03/01/18 03/01/18 03/01/18 Range/Units 08:08 08:08 12:24 RBC 3.90 L (4.30-5.90) m/uL Hgb 11.4 L (13.0-17.5) gm/dL Hct 35.5 L (39.0-53.0) % RDW 15.7 H (11.5-15.5) % Glucose 124 H (74-99) mg/dL POC Glucose (mg/dL) 119 H (75-99) mg/dL 03/01/18 03/01/18 Range/Units 17:16 20:41 RBC (4.30-5.90) m/uL Hgb (13.0-17.5) gm/dL Hct (39.0-53.0) % RDW (11.5-15.5) % Glucose (74-99) mg/dL POC Glucose (mg/dL) 165 H 109 H (75-99) mg/dL Microbiology - Last 24 Hours (Table) 02/28/18 20:35 Urine Culture - Preliminary Urine,Catheterized Gram Neg Bacilli 02/28/18 19:23 Blood Culture - Preliminary Blood No Growth after 24 hours Laboratory Results WBC 7.4 k/uL (3.8-10.6) 03/01/18 08:08 RBC 3.90 m/uL (4.30-5.90) L 03/01/18 08:08 Hgb 11.4 gm/dL (13.0-17.5) L 03/01/18 08:08 Hct 35.5 % (39.0-53.0) L 03/01/18 08:08 MCV 91.1 fL (80.0-100.0) 03/01/18 08:08 MCH 29.2 pg (25.0-35.0) 03/01/18 08:08 MCHC 32.0 g/dL (31.0-37.0) 03/01/18 08:08 RDW 15.7 % (11.5-15.5) H 03/01/18 08:08 Plt Count 257 k/uL (150-450) 03/01/18 08:08 Neutrophils % 69 % 03/01/18 08:08 Lymphocytes % 14 % 03/01/18 08:08 Monocytes % 10 % 03/01/18 08:08 Eosinophils % 4 % 03/01/18 08:08 Basophils % 0 % 03/01/18 08:08 Neutrophils # 5.1 k/uL (1.3-7.7) 03/01/18 08:08 Lymphocytes # 1.0 k/uL (1.0-4.8) 03/01/18 08:08 Monocytes # 0.8 k/uL (0-1.0) 03/01/18 08:08 Eosinophils # 0.3 k/uL (0-0.7) 03/01/18 08:08 Basophils # 0.0 k/uL (0-0.2) 03/01/18 08:08 Hypochromasia Moderate 03/01/18 08:08 Poikilocytosis Slight 03/01/18 08:08 Sodium 144 mmol/L (137-145) 03/01/18 08:08 Potassium 3.9 mmol/L (3.5-5.1) 03/01/18 08:08 Chloride 104 mmol/L (98-107) 03/01/18 08:08 Carbon Dioxide 30 mmol/L (22-30) 03/01/18 08:08 Anion Gap 10 mmol/L 03/01/18 08:08 BUN 13 mg/dL (9-20) 03/01/18 08:08 Creatinine 1.01 mg/dL (0.66-1.25) 03/01/18 08:08 Est GFR (CKD-EPI)AfAm 82 (>60 ml/min/1.73 sqM) 03/01/18 08:08 Est GFR (CKD-EPI)NonAf 71 (>60 ml/min/1.73 sqM) 03/01/18 08:08 Glucose 124 mg/dL (74-99) H 03/01/18 08:08 POC Glucose (mg/dL) 109 mg/dL (75-99) H 03/01/18 20:41 POC Glu [employer] ID Jessica Miller 03/01/18 20:41 Plasma Lactic Acid [place] 0.9 mmol/L (0.7-2.0) 02/28/18 19:23 Calcium 9.0 mg/dL (8.4-10.2) 03/01/18 08:08 Total Bilirubin 0.5 mg/dL (0.2-1.3) 02/28/18 19:23 AST 28 U/L (17-59) 02/28/18 19:23 ALT 28 U/L (21-72) 02/28/18 19:23 Alkaline Phosphatase 114 U/L (38-126) 02/28/18 19:23 Total Protein 6.1 g/dL (6.3-8.2) L 02/28/18 19:23 Albumin 3.2 g/dL (3.5-5.0) L 02/28/18 19:23 Amylase 44 U/L (30-110) 02/28/18 19:23 Lipase 54 U/L (23-300) 02/28/18 19:23 Urine Color Yellow 02/28/18 20:35 Urine Appearance Cloudy (Clear) 02/28/18 20:35 Urine pH 5.5 (5.0-8.0) 02/28/18 20:35 Ur Specific Ruby 1.016 (1.001-1.035) 02/28/18 20:35 Urine Protein 1+ (Negative) H 02/28/18 20:35 Urine Glucose (UA) 4+ (Negative) H 02/28/18 20:35 Urine Ketones Negative (Negative) 02/28/18 20:35 Urine Blood Negative (Negative) 02/28/18 20:35 Urine Nitrite Negative (Negative) 02/28/18 20:35 Urine Bilirubin Negative (Negative) 02/28/18 20:35 Urine Urobilinogen <2.0 mg/dL (<2.0) 02/28/18 20:35 Ur Leukocyte Esterase Large (Negative) H 02/28/18 20:35 Urine RBC 5 /hpf (0-5) 02/28/18 20:35 Urine WBC 182 /hpf (0-5) H 02/28/18 20:35 Urine WBC Clumps Many /hpf (None) H 02/28/18 20:35 Urine Bacteria Moderate /hpf (None) H 02/28/18 20:35 Urine Mucus Rare /hpf (None) H 02/28/18 20:35 C. difficile (EIA) Intrp Negative (Negative) 03/01/18 12:57 Microbiology 02/28/18 20:35 Urine,Catheterized Urine Culture - Preliminary Gram Neg Bacilli 02/28/18 19:23 Blood Blood Culture - Preliminary No Growth after 24 hours Assessment and Plan (1) Back pain Current Visit: Yes Status: Acute Code(s): M54.9 - DORSALGIA, UNSPECIFIED SNOMED Code(s): 530710745 (2) UTI due to extended-spectrum beta lactamase (ESBL) producing Escherichia coli Narrative/Plan: 77 year old male with dementia who presents to hospital reportedly miserable now improved. Urine was reported as brown and has evidence of infection, if not done should bladder scan to ensure no retention given history. For now invanz given history of esbl ecoli infection. Pain-neurology to evaluate given the severe pain, may need urology to see again although not a good surgical candidate. Current Visit: Yes Status: Acute Code(s): N39.0 - URINARY TRACT INFECTION, SITE NOT SPECIFIED; B96.29 - OTH ESCHERICHIA COLI THE CAUSE OF DISEASES CLASSD ELSWHR; Z16.12 - EXTENDED SPECTRUM BETA LACTAMASE (ESBL) RESISTANCE SNOMED Code(s): 876856951 (3) Dementia Current Visit: Yes Status: Acute Code(s): F03.90 - UNSPECIFIED DEMENTIA WITHOUT BEHAVIORAL DISTURBANCE SNOMED Code(s): 57540240 (4) Urinary retention Current Visit: No Status: Acute Code(s): R33.9 - RETENTION OF URINE, UNSPECIFIED SNOMED Code(s): 076087859
[2018-03-02 01:54] LABS: Glucose,Whole Blood 106 mg/dL (75-99)
[2018-03-02] MEDS: MEROPENEM 1 GM in SODIUM CHLORIDE 0.9% 100 ML IVPB SCH ×3 (03:56→22:24)
[2018-03-02] MEDS: LIDOCAINE 5% PATCH TOPICAL SCH (06:14)
[2018-03-02] MEDS: amLODIPine 10 MG TAB PO SCH (07:41)
[2018-03-02] MEDS: CARVEDILOL 12.5 MG TAB PO SCH ×2 (07:41→17:57)
[2018-03-02] MEDS: ETODOLAC 400 MG TAB PO SCH ×2 (07:41→22:26)
[2018-03-02] MEDS: FAMOTIDINE 20 MG TAB PO SCH (07:41)
[2018-03-02] MEDS: FINASTERIDE 5 MG TAB PO SCH (07:41)
[2018-03-02] MEDS: CITALOPRAM HYDROBROMIDE 20 MG TAB PO SCH (07:42)
[2018-03-02] MEDS: MISOPROSTOL 200 MCG TAB PO SCH ×2 (07:42→22:27)
[2018-03-02] MEDS: LOSARTAN 50 MG TAB PO SCH (07:42)
[2018-03-02] MEDS: GABAPENTIN 100 MG CAP PO SCH ×3 (07:42→22:24)
[2018-03-02] MEDS: Dapagliflozin Propanediol [Farxiga] PO SCH (07:43)
[2018-03-02 07:46] LABS: Glucose,Whole Blood 131 mg/dL (75-99)
[2018-03-02] MEDS: IPRATROPIUM-ALBUTEROL 3 ML NEB INHALATION SCH ×4 (08:48→19:51)
[2018-03-02 11:27] LABS: Glucose,Whole Blood 126 mg/dL (75-99)
[2018-03-02] MEDS: MULTIVITAMINS, THERA 1 EACH TAB PO SCH (12:09)
[2018-03-02] MEDS: SODIUM CHLORIDE 0.9% 1,000 ML IV SCH (12:13)
[2018-03-02 17:09] LABS: Glucose,Whole Blood 137 mg/dL (75-99)
[2018-03-02 20:14] LABS: Glucose,Whole Blood 198 mg/dL (75-99)
[2018-03-02] MEDS: traZODone HCL 50 MG TAB PO SCH (22:24)
[2018-03-02] MEDS: ASPIRIN 81 MG PO SCH (22:24)
[2018-03-02] MEDS: MELATONIN 5 MG TABLET PO SCH (22:24)
[2018-03-02] MEDS: ATORVASTATIN 20 MG TAB PO SCH (22:25)
[2018-03-02] MEDS: DONEPEZIL 10 MG TAB PO SCH (22:25)
[2018-03-02] MEDS: MAGNESIUM OXIDE 400 MG TAB PO SCH (22:26)
[2018-03-02] MEDS: TAMSULOSIN 0.4 MG CAP.ER.24H PO SCH (22:27)
--- NOTE | 2018-03-02 22:46 | P.PN ---
Subjective Progress Note Date: 03/02/18 Principal diagnosis: urinary tract infection 77-year-old male presents to Hospital from the extended care facility with alteration of his mental status. This 77-year-old gentleman has underlying dementia and was recently hospitalized an outside hospital where he was found evidence of urinary retention as well as urinary tract infection. It is related that he was treated for his urinary infection but apparently developed pressure ulcerations. the patient was imporved and transfered to [facility] but now has worseing pain such that family requests pain consult apparently was long delay and since patient was miserable they brought him to hospital. Did have concerns to a month long UTI, but were aware of recent negative cultures but were concerned due to his urinary retention. Patient has dementia and provides little assistance except that his pain is much better. and he wants to go home now. 03/02/2018 patient is comfortable. Up with a sitter with the walker in the hallway. He is not complaining of any significant which is considerably improved from or the family was quite distraught because of the severity of his back pain. The patient remains anxious about His discharge to home. Objective - Vital Signs Vital signs: Vital Signs Temp 98.3 F 03/02/18 14:18 Pulse 90 03/02/18 20:02 Resp 16 03/02/18 16:00 BP 136/65 03/02/18 14:18 Pulse Ox 93 L 03/02/18 14:18 Intake & Output 03/02/18 03/02/18 03/03/18 06:59 18:59 06:59 Intake Total 400 1240 Output Total 1004 4 Balance -604 1236 Weight 85.729 kg Intake: Intake, IV Titration 400 160 Amount Meropenem 1 gm In Sodium 400 100 Chloride 0.9% 100 ml @ 200 mls/hr IVPB Q8H [facility] Rx#:[id number] Sodium Chloride 0.9% 1, 60 000 ml @ 50 mls/hr IV . Q20H [facility] Rx#:[id number] Oral 1080 Output: Urine 1000 Stool 4 4 Other: Voiding Method Toilet Toilet Urinal # Voids 5 15 2 - Exam 77-year-old male in no distress, HEENT: Anicteric, conjunctiva are pink and moist, nasal or oral mucosa are without lesion. The neck is supple without lymphadenopathy or thyromegaly. No oral thrush is noted. Oral mucosa is slightly dry but no oral lesions are seen Lungs: Symmetrical air entry is noted, expiratory scattered wheezes are heard but no bronchial sounds or egophony noted Heart: Regular rate and rhythm with an audible S1-S2, no S3 loud S4 noted. No significant murmur click or rub noted. Abdomen: Positive bowel sounds, soft and nontender, there is no palpable masses or organomegaly. Abdomen is without guarding or rebound. Extremities:Upper extremities reveal evidence of equal pulses, no lesions are seen, no petechiae or telangiectasia. The lower extremities have no significant edema, peripheral pulses were 2+ and symmetric, no lesions or ulcerations are seen. Capillary refill was brisk. Skin: No significant rashes are seen. The patient does have evidence of healing of the pressure ulceration on the buttocks area. Neuro:Awake and alert, oriented to person only. As far as following commands opened his mouth when requested but didn't follow any other commands correctly and could not assist at all on rolling to his side. Musculoskeletal: Patient is with generalized weakness No acute joint effusions are noted. Lymph: No cervical, supraclavicular, axillary, epitrochlear, or inguinal lymphadenopathy was noted. - Labs CBC & Chem 7: 03/01/18 08:08 03/01/18 08:08 Labs: Abnormal Lab Results - Last 24 Hours (Table) 03/02/18 03/02/18 03/02/18 Range/Units 01:49 07:44 11:13 POC Glucose (mg/dL) 106 H 131 H 126 H (75-99) mg/dL 03/02/18 03/02/18 Range/Units 17:04 20:11 POC Glucose (mg/dL) 137 H 198 H (75-99) mg/dL Microbiology - Last 24 Hours (Table) 02/28/18 19:23 Blood Culture - Preliminary Blood No Growth after 48 hours 02/28/18 20:35 Urine Culture - Preliminary Urine,Catheterized Gram Neg Bacilli Assessment and Plan (1) Back pain Current Visit: Yes Status: Acute Code(s): M54.9 - DORSALGIA, UNSPECIFIED SNOMED Code(s): 258505373 (2) UTI due to extended-spectrum beta lactamase (ESBL) producing Escherichia coli Narrative/Plan: 77 year old male with dementia who presents to hospital reportedly miserable now improved. Urine was reported as brown and has evidence of infection, if not done should bladder scan to ensure no retention given history. For now invanz given history of esbl ecoli infection. The urine culture is pending and will help decide the course of antibiotic therapy at discharge and whether or not an intravenous course is required. Fortunately he is doing considerably better today. His pain seems to be remarkably better. He is up in the hallway walking with a walker without complaints of any discomfort. Current Visit: Yes Status: Acute Code(s): N39.0 - URINARY TRACT INFECTION, SITE NOT SPECIFIED; B96.29 - OTH ESCHERICHIA COLI THE CAUSE OF DISEASES CLASSD ELSWHR; Z16.12 - EXTENDED SPECTRUM BETA LACTAMASE (ESBL) RESISTANCE SNOMED Code(s): 128344601 (3) Dementia Current Visit: Yes Status: Acute Code(s): F03.90 - UNSPECIFIED DEMENTIA WITHOUT BEHAVIORAL DISTURBANCE SNOMED Code(s): 37632612 (4) Urinary retention Current Visit: No Status: Acute Code(s): R33.9 - RETENTION OF URINE, UNSPECIFIED SNOMED Code(s): 219357132
[2018-03-03] MEDS: MEROPENEM 1 GM in SODIUM CHLORIDE 0.9% 100 ML IVPB SCH ×3 (04:01→21:01)
[2018-03-03] MEDS: LIDOCAINE 5% PATCH TOPICAL SCH (06:33)
[2018-03-03 07:39] LABS: Glucose,Whole Blood 129 mg/dL (75-99)
[2018-03-03] MEDS: IPRATROPIUM-ALBUTEROL 3 ML NEB INHALATION SCH ×4 (07:54→19:57)
[2018-03-03] MEDS: GABAPENTIN 100 MG CAP PO SCH ×3 (08:27→21:03)
[2018-03-03] MEDS: LOSARTAN 50 MG TAB PO SCH (08:27)
[2018-03-03] MEDS: Dapagliflozin Propanediol [Farxiga] PO SCH (08:28)
[2018-03-03] MEDS: ETODOLAC 400 MG TAB PO SCH ×2 (08:28→21:02)
[2018-03-03] MEDS: amLODIPine 10 MG TAB PO SCH (08:29)
[2018-03-03] MEDS: HEPARIN SODIUM,PORCINE 5,000 UNIT/ML 1 ML VIAL SQ SCH ×2 (08:29→17:22)
[2018-03-03] MEDS: CITALOPRAM HYDROBROMIDE 20 MG TAB PO SCH (08:29)
[2018-03-03] MEDS: MISOPROSTOL 200 MCG TAB PO SCH ×2 (08:30→21:02)
[2018-03-03] MEDS: FINASTERIDE 5 MG TAB PO SCH (08:30)
[2018-03-03] MEDS: FAMOTIDINE 20 MG TAB PO SCH (08:30)
[2018-03-03] MEDS: CARVEDILOL 12.5 MG TAB PO SCH ×2 (08:30→17:22)
[2018-03-03] MEDS: MULTIVITAMINS, THERA 1 EACH TAB PO SCH (08:30)
[2018-03-03 11:08] LABS: Glucose,Whole Blood 113 mg/dL (75-99)
[2018-03-03] MEDS: SODIUM CHLORIDE 0.9% 1,000 ML IV SCH (11:41)
[2018-03-03 13:12] LABS: Basophils % (A) 0 %; Eosinophils # (A) 0.1 k/uL (0-0.7); Eosinophils % (A) 2 %; HCT 39.1 % (39.0-53.0); HGB 12.2 gm/dL (13.0-17.5); Hypochromasia Moderate; Lymphocytes # (A) 0.7 k/uL (1.0-4.8); Lymphocytes % (A) 8 %; MCH 28.5 pg (25.0-35.0); MCHC 31.2 g/dL (31.0-37.0); MCV 91.4 fL (80.0-100.0); Monocytes % (A) 12 %; Neutrophils # (A) 6.8 k/uL (1.3-7.7); Neutrophils % (A) 76 %; Platelet Count 247 k/uL (150-450); Poikilocytosis Slight; RBC 4.28 m/uL (4.30-5.90); RDW 15.4 % (11.5-15.5)
[2018-03-03 13:24] LABS: Anion Gap 11 mmol/L; Blood Urea Nitrogen 12 mg/dL (9-20); Carbon Dioxide 31 mmol/L (22-30); Chloride 101 mmol/L (98-107); Glucose 130 mg/dL (74-99); Potassium 3.7 mmol/L (3.5-5.1); Sodium 143 mmol/L (137-145)
[2018-03-03 17:36] LABS: Glucose,Whole Blood 139 mg/dL (75-99)
[2018-03-03 20:27] LABS: Glucose,Whole Blood 156 mg/dL (75-99)
[2018-03-03] MEDS: MAGNESIUM OXIDE 400 MG TAB PO SCH (21:01)
[2018-03-03] MEDS: MELATONIN 5 MG TABLET PO SCH (21:01)
[2018-03-03] MEDS: ATORVASTATIN 20 MG TAB PO SCH (21:02)
[2018-03-03] MEDS: ASPIRIN 81 MG PO SCH (21:03)
[2018-03-03] MEDS: traZODone HCL 50 MG TAB PO SCH (21:03)
[2018-03-03] MEDS: TAMSULOSIN 0.4 MG CAP.ER.24H PO SCH (21:03)
[2018-03-03] MEDS: DONEPEZIL 10 MG TAB PO SCH (21:06)
--- NOTE | 2018-03-03 22:44 | P.PN ---
Subjective Progress Note Date: 03/03/18 Principal diagnosis: urinary tract infection 77-year-old male presents to Hospital from the extended care facility with alteration of his mental status. This 77-year-old gentleman has underlying dementia and was recently hospitalized an outside hospital where he was found evidence of urinary retention as well as urinary tract infection. It is related that he was treated for his urinary infection but apparently developed pressure ulcerations. the patient was imporved and transfered to [facility] but now has worseing pain such that family requests pain consult apparently was long delay and since patient was miserable they brought him to hospital. Did have concerns to a month long UTI, but were aware of recent negative cultures but were concerned due to his urinary retention. Patient has dementia and provides little assistance except that his pain is much better. and he wants to go home now. 03/02/2018 patient is comfortable. Up with a sitter with the walker in the hallway. He is not complaining of any significant which is considerably improved from or the family was quite distraught because of the severity of his back pain. The patient remains anxious about His discharge to home. 03/03/2018 patient remains comfortable. With his walker he is up moving in the hallway with no complaints at all. Denies any back pain. He moves quickly with a walker with no complaints. He just wants to know when he gets to go home Objective - Vital Signs Vital signs: Vital Signs Temp 97.9 F 03/03/18 22:26 Pulse 65 03/03/18 22:26 Resp 18 03/03/18 22:26 BP 138/66 03/03/18 22:26 Pulse Ox 95 03/03/18 22:26 Intake & Output 03/03/18 03/03/18 03/04/18 06:59 18:59 06:59 Intake Total 700 Output Total 2 2 Balance -2 698 Intake: Intake, IV Titration 100 Amount Meropenem 1 gm In Sodium 100 Chloride 0.9% 100 ml @ 200 mls/hr IVPB Q8H [facility] Rx#:[id number] Oral 600 Output: Stool 2 2 Other: Voiding Method Toilet Toilet # Voids 3 8 2 - Exam 77-year-old male in no distress, HEENT: Anicteric, conjunctiva are pink and moist, nasal or oral mucosa are without lesion. The neck is supple without lymphadenopathy or thyromegaly. No oral thrush is noted. Oral mucosa is slightly dry but no oral lesions are seen Lungs: Symmetrical air entry is noted, expiratory scattered wheezes are heard but no bronchial sounds or egophony noted Heart: Regular rate and rhythm with an audible S1-S2, no S3 loud S4 noted. No significant murmur click or rub noted. Abdomen: Positive bowel sounds, soft and nontender, there is no palpable masses or organomegaly. Abdomen is without guarding or rebound. Extremities:Upper extremities reveal evidence of equal pulses, no lesions are seen, no petechiae or telangiectasia. The lower extremities have no significant edema, peripheral pulses were 2+ and symmetric, no lesions or ulcerations are seen. Capillary refill was brisk. Skin: No significant rashes are seen. The patient does have evidence of healed pressure ulceration on the buttocks area. Neuro:Awake and alert, oriented to person only. As far as following commands opened his mouth when requested but didn't follow any other commands correctly and could not assist at all on rolling to his side. Musculoskeletal: Patient is with improved weakness No acute joint effusions are noted. Lymph: No cervical, supraclavicular, axillary, epitrochlear, or inguinal lymphadenopathy was noted. - Labs CBC & Chem 7: 03/03/18 12:51 03/03/18 12:51 Labs: Abnormal Lab Results - Last 24 Hours (Table) 03/03/18 03/03/18 03/03/18 Range/Units 07:36 11:07 12:51 RBC 4.28 L (4.30-5.90) m/uL Hgb 12.2 L (13.0-17.5) gm/dL Lymphocytes # 0.7 L (1.0-4.8) k/uL Carbon Dioxide (22-30) mmol/L Glucose (74-99) mg/dL POC Glucose (mg/dL) 129 H 113 H (75-99) mg/dL 03/03/18 03/03/18 03/03/18 Range/Units 12:51 17:14 20:25 RBC (4.30-5.90) m/uL Hgb (13.0-17.5) gm/dL Lymphocytes # (1.0-4.8) k/uL Carbon Dioxide 31 H (22-30) mmol/L Glucose 130 H (74-99) mg/dL POC Glucose (mg/dL) 139 H 156 H (75-99) mg/dL Microbiology - Last 24 Hours (Table) 02/28/18 19:23 Blood Culture - Preliminary Blood No Growth after 72 hours 02/28/18 20:35 Urine Culture - Final Urine,Catheterized Escherichia coli Laboratory Results WBC 9.0 k/uL (3.8-10.6) 03/03/18 12:51 RBC 4.28 m/uL (4.30-5.90) L 03/03/18 12:51 Hgb 12.2 gm/dL (13.0-17.5) L 03/03/18 12:51 Hct 39.1 % (39.0-53.0) 03/03/18 12:51 MCV 91.4 fL (80.0-100.0) 03/03/18 12:51 MCH 28.5 pg (25.0-35.0) 03/03/18 12:51 MCHC 31.2 g/dL (31.0-37.0) 03/03/18 12:51 RDW 15.4 % (11.5-15.5) 03/03/18 12:51 Plt Count 247 k/uL (150-450) 03/03/18 12:51 Neutrophils % 76 % 03/03/18 12:51 Lymphocytes % 8 % 03/03/18 12:51 Monocytes % 12 % 03/03/18 12:51 Eosinophils % 2 % 03/03/18 12:51 Basophils % 0 % 03/03/18 12:51 Neutrophils # 6.8 k/uL (1.3-7.7) 03/03/18 12:51 Lymphocytes # 0.7 k/uL (1.0-4.8) L 03/03/18 12:51 Monocytes # 1.0 k/uL (0-1.0) 03/03/18 12:51 Eosinophils # 0.1 k/uL (0-0.7) 03/03/18 12:51 Basophils # 0.0 k/uL (0-0.2) 03/03/18 12:51 Hypochromasia Moderate 03/03/18 12:51 Poikilocytosis Slight 03/03/18 12:51 Sodium 143 mmol/L (137-145) 03/03/18 12:51 Potassium 3.7 mmol/L (3.5-5.1) 03/03/18 12:51 Chloride 101 mmol/L (98-107) 03/03/18 12:51 Carbon Dioxide 31 mmol/L (22-30) H 03/03/18 12:51 Anion Gap 11 mmol/L 03/03/18 12:51 BUN 12 mg/dL (9-20) 03/03/18 12:51 Creatinine 0.86 mg/dL (0.66-1.25) 03/03/18 12:51 Est GFR (CKD-EPI)AfAm >90 (>60 ml/min/1.73 sqM) 03/03/18 12:51 Est GFR (CKD-EPI)NonAf 83 (>60 ml/min/1.73 sqM) 03/03/18 12:51 Glucose 130 mg/dL (74-99) H 03/03/18 12:51 POC Glucose (mg/dL) 156 mg/dL (75-99) H 03/03/18 20:25 POC Glu [employer] Operator Carlene Rhoades 03/03/18 20:25 Plasma Lactic Acid [place] 0.9 mmol/L (0.7-2.0) 02/28/18 19:23 Calcium 9.0 mg/dL (8.4-10.2) 03/03/18 12:51 Total Bilirubin 0.5 mg/dL (0.2-1.3) 02/28/18 19:23 AST 28 U/L (17-59) 02/28/18 19:23 ALT 28 U/L (21-72) 02/28/18 19:23 Alkaline Phosphatase 114 U/L (38-126) 02/28/18 19:23 Total Protein 6.1 g/dL (6.3-8.2) L 02/28/18 19:23 Albumin 3.2 g/dL (3.5-5.0) L 02/28/18 19:23 Amylase 44 U/L (30-110) 02/28/18 19:23 Lipase 54 U/L (23-300) 02/28/18 19:23 Urine Color Yellow 02/28/18 20:35 Urine Appearance Cloudy (Clear) 02/28/18 20:35 Urine pH 5.5 (5.0-8.0) 02/28/18 20:35 Ur Specific [place] 1.016 (1.001-1.035) 02/28/18 20:35 Urine Protein 1+ (Negative) H 02/28/18 20:35 Urine Glucose (UA) 4+ (Negative) H 02/28/18 20:35 Urine Ketones Negative (Negative) 02/28/18 20:35 Urine Blood Negative (Negative) 02/28/18 20:35 Urine Nitrite Negative (Negative) 02/28/18 20:35 Urine Bilirubin Negative (Negative) 02/28/18 20:35 Urine Urobilinogen <2.0 mg/dL (<2.0) 02/28/18 20:35 Ur Leukocyte Esterase Large (Negative) H 02/28/18 20:35 Urine RBC 5 /hpf (0-5) 02/28/18 20:35 Urine WBC 182 /hpf (0-5) H 02/28/18 20:35 Urine WBC Clumps Many /hpf (None) H 02/28/18 20:35 Urine Bacteria Moderate /hpf (None) H 02/28/18 20:35 Urine Mucus Rare /hpf (None) H 02/28/18 20:35 C. difficile (EIA) Intrp Negative (Negative) 03/01/18 12:57 Microbiology 02/28/18 19:23 Blood Blood Culture - Preliminary No Growth after 72 hours 02/28/18 20:35 Urine,Catheterized Urine Culture - Final Escherichia coli Assessment and Plan (1) Back pain Current Visit: Yes Status: Acute Code(s): M54.9 - DORSALGIA, UNSPECIFIED SNOMED Code(s): 326170843 (2) UTI due to extended-spectrum beta lactamase (ESBL) producing Escherichia coli Narrative/Plan: 77 year old male with dementia who presents to hospital reportedly miserable now improved. Urine was reported as brown and has evidence of infection, if not done should bladder scan to ensure no retention given history. For now invanz given history of esbl ecoli infection. The urine culture is pending and will help decide the course of antibiotic therapy at discharge and whether or not an intravenous course is required. Fortunately he is doing considerably better today. His pain seems to be remarkably better. He is up in the hallway walking with a walker without complaints of any discomfort. Urine culture does reveal evidence of ESBL E. coli. Patient is responding well to current treatment of fluids and antibiotic therapy. We'll work with the mission planner as to whether Merrem or ertapenem can be utilized at the time [facility]. Have requested a midline catheter be placed to complete his 2 weeks of antibiotic therapy for this recurrent resistant urinary tract infection. Current Visit: Yes Status: Acute Code(s): N39.0 - URINARY TRACT INFECTION, SITE NOT SPECIFIED; B96.29 - OTH ESCHERICHIA COLI THE CAUSE OF DISEASES CLASSD ELSWHR; Z16.12 - EXTENDED SPECTRUM BETA LACTAMASE (ESBL) RESISTANCE SNOMED Code(s): 317694580 (3) Dementia Current Visit: Yes Status: Acute Code(s): F03.90 - UNSPECIFIED DEMENTIA WITHOUT BEHAVIORAL DISTURBANCE SNOMED Code(s): 94901591 (4) Urinary retention Current Visit: No Status: Acute Code(s): R33.9 - RETENTION OF URINE, UNSPECIFIED SNOMED Code(s): 417568482
[2018-03-04] MEDS: HEPARIN SODIUM,PORCINE 5,000 UNIT/ML 1 ML VIAL SQ SCH ×2 (01:08→10:12)
[2018-03-04] MEDS: MEROPENEM 1 GM in SODIUM CHLORIDE 0.9% 100 ML IVPB SCH ×2 (04:14→13:09)
[2018-03-04] MEDS: LIDOCAINE 5% PATCH TOPICAL SCH (05:13)
[2018-03-04] MEDS: SODIUM CHLORIDE 0.9% 1,000 ML IV SCH (07:18)
[2018-03-04 07:39] LABS: Glucose,Whole Blood 106 mg/dL (75-99)
[2018-03-04] MEDS: IPRATROPIUM-ALBUTEROL 3 ML NEB INHALATION SCH ×2 (07:45→11:49)
[2018-03-04 08:17] VITALS: BP 149/82; PULSE 75; RESP 16; TEMP 98.6
[2018-03-04] MEDS: Dapagliflozin Propanediol [Farxiga] PO SCH (10:09)
[2018-03-04] MEDS: CARVEDILOL 12.5 MG TAB PO SCH (10:11)
[2018-03-04] MEDS: amLODIPine 10 MG TAB PO SCH (10:12)
[2018-03-04] MEDS: MULTIVITAMINS, THERA 1 EACH TAB PO SCH (10:13)
[2018-03-04] MEDS: GABAPENTIN 100 MG CAP PO SCH (10:13)
[2018-03-04] MEDS: ETODOLAC 400 MG TAB PO SCH (10:13)
[2018-03-04] MEDS: CITALOPRAM HYDROBROMIDE 20 MG TAB PO SCH (10:13)
[2018-03-04] MEDS: FINASTERIDE 5 MG TAB PO SCH (10:13)
[2018-03-04] MEDS: LOSARTAN 50 MG TAB PO SCH (10:14)
[2018-03-04] MEDS: FAMOTIDINE 20 MG TAB PO SCH (10:14)
[2018-03-04] MEDS: MISOPROSTOL 200 MCG TAB PO SCH (10:15)
--- NOTE | 2018-03-04 10:50 | P.PN ---
Subjective Progress Note Date: 03/02/18 Principal diagnosis: ESBL urinary tract infection 77-year-old male patient with past medical history significant for dementia, diabetes mellitus, hyperlipidemia, hypertension, and BPH presents to the emergency department today with family for evaluation of continued urinary tract infection, chronic pain issues, and weakness. He states the patient has been treated for over a month for urinary tract infection. At one point he did have urinary retention and had an indwelling Lazcano catheter for approximately one month. He states that initially he was hospitalized and treated with IV antibiotics and then discharged to rehab with prescription for Macrobid. They report that he has been having urinary symptoms including frequency and dysuria so they had a repeat urine test done at the doctor's office approximately a week ago. They state that the culture came back positive for ESBL E. coli. patient has been having chronic low back pain with radiation down the right leg. States that his [place] was not working for him. They have been trying to get in to see a neurologist for pain management but had unable to do so. They state the patient complains of pain every day, states that he moans in pain all day long. He previously took methadone for this. They deny any known fevers however say patient is constantly cold and chilled. Patient has been complaining of nausea and belching today. Patient denies any recent rash, shortness breath, chest pain, abdominal pain, diarrhea, constipation, back pain , numbness, tingling, dizziness, headache, visual changes, or any other complaints. KUB x-ray showed normal bowel gas pattern. On 03/02/18 - Today patient denied any complaints of pain. No fever no chills. No acute overnight issues. Patient is being continued on antibiotics in the form of meropenem. Anticipate to be discharged with ID final recommendations. Patient will be discharged to rehab. Review of Systems Constitutional: Patient denies any fever or chills . Patient does have generalized weakness. No weight loss. Abdomen: Patient denied nausea vomiting and diarrhea and abdominal pain. Cardiovascular: Patient denies any chest pain or short of breath no palpitations. Respiratory: patient denied any cough is from production. No shortness of breath Neurologic: Patient denied any numbness or tingling headache. Musculoskeletal: Back pain. Patient denies any complaints of joint swelling or deformity. Objective - Vital Signs Vital signs: Vital Signs Temp 98.3 F 03/02/18 14:18 Pulse 80 03/02/18 14:18 Resp 16 03/02/18 14:18 BP 136/65 03/02/18 14:18 Pulse Ox 93 L 03/02/18 14:18 Intake & Output 03/01/18 03/02/18 03/02/18 18:59 06:59 18:59 Intake Total 1890 400 Output Total 2000 1004 Balance -110 -604 Weight 85.729 kg Intake: Intake, IV Titration 450 400 Amount Meropenem 1 gm In Sodium 100 400 Chloride 0.9% 100 ml @ 200 mls/hr IVPB Q8H [facility] Rx#:[id number] Piperacillin-Tazobactam 3 50 .375 gm In Dextrose/Water 1 50ml.bag @ 12.5 mls/hr IVPB Q8H [facility] Rx#: [id number] Sodium Chloride 0.9% 1, 300 000 ml @ 50 mls/hr IV . Q20H [facility] Rx#:[id number] Oral 1440 Output: Urine 2000 1000 Stool 4 Other: Voiding Method Toilet Toilet Urinal # Voids 5 - Exam PHYSICAL EXAMINATION: Patient is lying in the bed comfortably, no acute distress, awake alert and oriented 1. Patient is a poor historian.. HEENT: Normocephalic. Neck is supple. Pupils reactive. Nostrils clear. Oral cavity is moist. Ears reveal no drainage. Neck reveals no JVD, carotid bruits, or thyromegaly. CHEST EXAMINATION: Trachea is central. Symmetrical expansion. Lung rodriguez clear to auscultation and percussion. CARDIAC: Normal S1, S2 with no gallops. No murmurs ABDOMEN: Soft. Bowel sounds normal. No organomegaly. No abdominal bruits. Extremities: reveal no edema. No clubbing or cyanosis Neurologically awake, alert, oriented x1 with well-coordinated movements. No focal deficits noted Skin: No rash or skin lesions. Psychiatric: Cooperative. Nonsuicidal Musculoskeletal: No joint swelling or deformity. Normal range of motion. - Labs CBC & Chem 7: 03/03/18 12:51 03/03/18 12:51 Labs: Abnormal Lab Results - Last 24 Hours (Table) 03/01/18 03/01/18 03/02/18 Range/Units 17:16 20:41 01:49 POC Glucose (mg/dL) 165 H 109 H 106 H (75-99) mg/dL 03/02/18 03/02/18 Range/Units 07:44 11:13 POC Glucose (mg/dL) 131 H 126 H (75-99) mg/dL Microbiology - Last 24 Hours (Table) 02/28/18 20:35 Urine Culture - Preliminary Urine,Catheterized Gram Neg Bacilli 02/28/18 19:23 Blood Culture - Preliminary Blood No Growth after 24 hours Assessment and Plan Assessment: ESBL E. coli urinary tract infection. Failed outpatient antibiotic therapy. Hypertension Diabetes type 2 Dementia BPH and thickened bladder mucosa. Outpatient urology follow-up recommended Chronic incomplete bladder emptying/retention Obstructive sleep apnea. Not using CPAP. Left buttock pressure ulcer stage III now healed Hyperlipidemia Osteoarthritis Previous history of smoking DVT prophylaxis Plan: Patient was given a dose of Zosyn in the ER. Patient was started on meropenem as per urine culture sensitivity report. ID will be consulted. We will continue the home medications and follow up closely. Gentle hydration and further recommendations based on the clinical course. Prognosis is guarded with multiple medical problems and comorbid conditions. Time with Patient: Greater than 30
--- NOTE | 2018-03-04 10:55 | P.PN ---
Subjective Progress Note Date: 03/03/18 Principal diagnosis: ESBL urinary tract infection 77-year-old male patient with past medical history significant for dementia, diabetes mellitus, hyperlipidemia, hypertension, and BPH presents to the emergency department today with family for evaluation of continued urinary tract infection, chronic pain issues, and weakness. He states the patient has been treated for over a month for urinary tract infection. At one point he did have urinary retention and had an indwelling Laz[place] catheter for approximately one month. He states that initially he was hospitalized and treated with IV antibiotics and then discharged to rehab with prescription for Macrobid. They report that he has been having urinary symptoms including frequency and dysuria so they had a repeat urine test done at the doctor's office approximately a week ago. They state that the culture came back positive for ESBL E. coli. patient has been having chronic low back pain with radiation down the right leg. States that his [place] was not working for him. They have been trying to get in to see a neurologist for pain management but had unable to do so. They state the patient complains of pain every day, states that he moans in pain all day long. He previously took methadone for this. They deny any known fevers however say patient is constantly cold and chilled. Patient has been complaining of nausea and belching today. Patient denies any recent rash, shortness breath, chest pain, abdominal pain, diarrhea, constipation, back pain , numbness, tingling, dizziness, headache, visual changes, or any other complaints. KUB x-ray showed normal bowel gas pattern. On 03/03/18 - Today patient denied any complaints of pain. No fever no chills. No acute overnight issues. Patient is being continued on antibiotics in the form of meropenem. Anticipate to be discharged with ID final recommendations. Patient will be discharged to rehab. Review of Systems Constitutional: Patient denies any fever or chills . Patient does have generalized weakness. No weight loss. Abdomen: Patient denied nausea vomiting and diarrhea and abdominal pain. Cardiovascular: Patient denies any chest pain or short of breath no palpitations. Respiratory: patient denied any cough is from production. No shortness of breath Neurologic: Patient denied any numbness or tingling headache. Musculoskeletal: Back pain. Patient denies any complaints of joint swelling or deformity. Objective - Vital Signs Vital signs: Vital Signs Temp 98.6 F 03/04/18 06:53 Pulse 75 03/04/18 06:53 Resp 16 03/04/18 06:53 BP 149/82 03/04/18 06:53 Pulse Ox 92 L 03/04/18 06:53 Intake & Output 03/03/18 03/04/18 03/04/18 18:59 06:59 18:59 Intake Total 700 Output Total 2 2 2 Balance 698 -2 -2 Intake: Intake, IV Titration 100 Amount Meropenem 1 gm In Sodium 100 Chloride 0.9% 100 ml @ 200 mls/hr IVPB Q8H [facility] Rx#:[id number] Oral 600 Output: Stool 2 2 2 Other: Voiding Method Toilet Toilet Toilet # Voids 8 3 - Exam PHYSICAL EXAMINATION: Patient is lying in the bed comfortably, no acute distress, awake alert and oriented 1. Patient is a poor historian.. HEENT: Normocephalic. Neck is supple. Pupils reactive. Nostrils clear. Oral cavity is moist. Ears reveal no drainage. Neck reveals no JVD, carotid bruits, or thyromegaly. CHEST EXAMINATION: Trachea is central. Symmetrical expansion. Lung rodriguez clear to auscultation and percussion. CARDIAC: Normal S1, S2 with no gallops. No murmurs ABDOMEN: Soft. Bowel sounds normal. No organomegaly. No abdominal bruits. Extremities: reveal no edema. No clubbing or cyanosis Neurologically awake, alert, oriented x1 with well-coordinated movements. No focal deficits noted Skin: No rash or skin lesions. Psychiatric: Cooperative. Nonsuicidal Musculoskeletal: No joint swelling or deformity. Normal range of motion. - Labs CBC & Chem 7: 03/03/18 12:51 03/03/18 12:51 Labs: Abnormal Lab Results - Last 24 Hours (Table) 03/03/18 03/03/18 03/03/18 Range/Units 11:07 12:51 12:51 RBC 4.28 L (4.30-5.90) m/uL Hgb 12.2 L (13.0-17.5) gm/dL Lymphocytes # 0.7 L (1.0-4.8) k/uL Carbon Dioxide 31 H (22-30) mmol/L Glucose 130 H (74-99) mg/dL POC Glucose (mg/dL) 113 H (75-99) mg/dL 03/03/18 03/03/18 03/04/18 Range/Units 17:14 20:25 07:27 RBC (4.30-5.90) m/uL Hgb (13.0-17.5) gm/dL Lymphocytes # (1.0-4.8) k/uL Carbon Dioxide (22-30) mmol/L Glucose (74-99) mg/dL POC Glucose (mg/dL) 139 H 156 H 106 H (75-99) mg/dL Microbiology - Last 24 Hours (Table) 02/28/18 19:23 Blood Culture - Preliminary Blood No Growth after 72 hours 02/28/18 20:35 Urine Culture - Final Urine,Catheterized Escherichia coli Assessment and Plan Assessment: ESBL E. coli urinary tract infection. Failed outpatient antibiotic therapy. Hypertension Diabetes type 2 Dementia BPH and thickened bladder mucosa. Outpatient urology follow-up recommended Chronic incomplete bladder emptying/retention Obstructive sleep apnea. Not using CPAP. Left buttock pressure ulcer stage III now healed Hyperlipidemia Osteoarthritis Previous history of smoking DVT prophylaxis Plan: Patient was given a dose of Zosyn in the ER. Patient was started on meropenem as per urine culture sensitivity report. ID will be consulted. We will continue the home medications and follow up closely. Gentle hydration and further recommendations based on the clinical course. Prognosis is guarded with multiple medical problems and comorbid conditions. Time with Patient: Greater than 30
--- NOTE | 2018-03-04 10:55 | P.DS ---
Providers Date of admission: 02/28/18 21:10 Expected date of discharge: 03/04/18 Attending physician: Ky Granger Consults: 02/28/18 21:11 Consult Physician Urgent Consulting Provider: Raheem Barney Consult Reason/Comments: Urinary tract infection; ESBL E. coli Do you want consulting provider notified?: Yes Primary care physician: Gianfranco Craven [facility] Course: ESBL E. coli urinary tract infection. Repeat cultures showed ESBL. Hypertension Diabetes type 2 Dementia BPH and thickened bladder mucosa. Outpatient urology follow-up recommended Chronic incomplete bladder emptying/retention Obstructive sleep apnea. Not using CPAP. Left buttock pressure ulcer stage III now healed Hyperlipidemia Osteoarthritis Chronic Back pain Previous history of smoking DVT prophylaxis 77-year-old male patient with past medical history significant for dementia, diabetes mellitus, hyperlipidemia, hypertension, and BPH presents to the emergency department today with family for evaluation of continued urinary tract infection, chronic pain issues, and weakness. He states the patient has been treated for over a month for urinary tract infection. At one point he did have urinary retention and had an indwelling Lazcano catheter for approximately one month. He states that initially he was hospitalized and treated with IV antibiotics and then discharged to rehab with prescription for Macrobid. They report that he has been having urinary symptoms including frequency and dysuria so they had a repeat urine test done at the doctor's office approximately a week ago. They state that the culture came back positive for ESBL E. coli. patient has been having chronic low back pain with radiation down the right leg. States that his [place] was not working for him. They have been trying to get in to see a neurologist for pain management but had unable to do so. They state the patient complains of pain every day, states that he moans in pain all day long. He previously took methadone for this. They deny any known fevers however say patient is constantly cold and chilled. Patient has been complaining of nausea and belching today. Patient denies any recent rash, shortness breath, chest pain, abdominal pain, diarrhea, constipation, back pain , numbness, tingling, dizziness, headache, visual changes, or any other complaints. KUB x-ray showed normal bowel gas pattern. On 03/03/18 - Today patient denied any complaints of pain. No fever no chills. No acute overnight issues. Patient is being continued on antibiotics in the form of meropenem. Anticipate to be discharged with ID final recommendations. Patient will be discharged to rehab. 03 04 2018 Final urine culture showed ESBL E. coli. Patient will be continued on meropenem for 2 weeks as per ID recommendations. Otherwise patient is stable to be discharged. No complaints of pain now. No complaints of difficulty in urination. Patient is off Lazcano catheter. Patient s family was recommended with the urology clinic. Vital Signs - 24 hr 03/03/18 03/03/18 03/03/18 15:00 15:28 15:38 Temperature 97.8 F Pulse Rate 81 88 Pulse Rate [ 66 Pulse Oximetery ] Respiratory 20 16 16 Rate Blood Pressure 158/69 [Right Arm] O2 Sat by Pulse 93 L Oximetry 03/03/18 03/04/18 22:26 06:53 Temperature 97.9 F 98.6 F Pulse Rate Pulse Rate [ 65 75 Pulse Oximetery ] Respiratory 18 16 Rate Blood Pressure 138/66 149/82 [Right Arm] O2 Sat by Pulse 95 92 L Oximetry Patient is lying in the bed comfortably, no acute distress, awake alert and oriented 1. Patient is a poor historian.. HEENT: Normocephalic. Neck is supple. Pupils reactive. Nostrils clear. Oral cavity is moist. Ears reveal no drainage. Neck reveals no JVD, carotid bruits, or thyromegaly. CHEST EXAMINATION: Trachea is central. Symmetrical expansion. Lung rodriguez clear to auscultation and percussion. CARDIAC: Normal S1, S2 with no gallops. No murmurs ABDOMEN: Soft. Bowel sounds normal. No organomegaly. No abdominal bruits. Extremities: reveal no edema. No clubbing or cyanosis Neurologically awake, alert, oriented x1 with well-coordinated movements. No focal deficits noted Skin: No rash or skin lesions. Psychiatric: Cooperative. Nonsuicidal Musculoskeletal: No joint swelling or deformity. Normal range of motion. Total time taken greater than 35 minutes including 18 minutes for counseling and coordination of care. Patient Condition at Discharge: Serious Plan - Discharge Summary Discharge Rx Participant: No New Discharge Prescriptions: New Meropenem [Merrem] 1 gm IVPB Q8H 14 Days #42 vial Continue Acetaminophen [Tylenol] 650 mg PO Q6H PRN PRN Reason: Fever Insulin Regular, Human [NovoLIN R] See Protocol SQ ACHS@06,11,16,20 Gabapentin [Neurontin] 200 mg PO TID Carvedilol [Coreg] 25 mg PO BID Diclofenac Sodium/Misoprostol [Arthrotec 75 mg-200 Mcg Tab] 1 tab PO BID traZODone HCL [Desyrel] 50 mg PO HS@2000 Tamsulosin HCl [Flomax] 0.4 mg PO HS Melatonin 5 mg PO HS@2000 Magnesium 200 mg PO HS Losartan Potassium 100 mg PO DAILY Famotidine [Pepcid] 20 mg PO DAILY Donepezil [Aricept] 20 mg PO HS amLODIPine [Norvasc] 10 mg PO DAILY Dapagliflozin Propanediol [Farxiga] 10 mg PO DAILY Citalopram Hydrobromide [CeleXA] 20 mg PO DAILY Atorvastatin [Lipitor] 20 mg PO HS Aspirin EC [Ecotrin Low Dose] 81 mg PO HS Lidocaine [Lidoderm 5% Patch] 1 patch TRANSDERM DAILY@0500 Finasteride [Proscar] 5 mg PO DAILY tab Ipratropium-Albuterol Nebulize [Duoneb 0.5 mg-3 mg/3 ml Soln] 3 ml INHALATION RT-QID Multivitamins, Thera [Multivitamin (formulary)] 1 tab PO DAILY@1200 HYDROcodone/APAP 10-325MG [[place] 10-325] 1 tab PO Q6H PRN 3 Days #12 tab PRN Reason: Pain LORazepam [Ativan] 0.5 mg PO Q6H PRN 3 Days #16 tablet PRN Reason: Anxiety Discharge Medication List Acetaminophen [Tylenol] 650 mg PO Q6H PRN 01/05/18 [History] Aspirin EC [Ecotrin Low Dose] 81 mg PO HS 01/05/18 [History] Atorvastatin [Lipitor] 20 mg PO HS 01/05/18 [History] Carvedilol [Coreg] 25 mg PO BID 01/05/18 [History] Citalopram Hydrobromide [CeleXA] 20 mg PO DAILY 01/05/18 [History] Dapagliflozin Propanediol [Farxiga] 10 mg PO DAILY 01/05/18 [History] Diclofenac Sodium/Misoprostol [Arthrotec 75 mg-200 Mcg Tab] 1 tab PO BID [History] Donepezil [Aricept] 20 mg PO HS 01/05/18 [History] Famotidine [Pepcid] 20 mg PO DAILY 01/05/18 [History] Gabapentin [Neurontin] 200 mg PO TID 01/05/18 [History] Insulin Regular, Human [NovoLIN R] See Protocol SQ ACHS@06,11,16,20 01/05/18 [ History] Lidocaine [Lidoderm 5% Patch] 1 patch TRANSDERM DAILY@0500 01/05/18 [History] Losartan Potassium 100 mg PO DAILY 01/05/18 [History] Magnesium 200 mg PO HS 01/05/18 [History] Melatonin 5 mg PO HS@199901/05/18 [History] Tamsulosin HCl [Flomax] 0.4 mg PO HS 01/05/18 [History] amLODIPine [Norvasc] 10 mg PO DAILY 01/05/18 [History] traZODone HCL [Desyrel] 50 mg PO HS@199901/05/18 [History] Finasteride [Proscar] 5 mg PO DAILY tab 01/14/18 [Rx] Ipratropium-Albuterol Nebulize [Duoneb 0.5 mg-3 mg/3 ml Soln] 3 ml INHALATION RT -QID 02/28/18 [History] Multivitamins, Thera [Multivitamin (formulary)] 1 tab PO DAILY@1200 02/28/18 [ History] HYDROcodone/APAP 10-325MG [[place] 10-325] 1 tab PO Q6H PRN 3 Days #12 tab [Rx] LORazepam [Ativan] 0.5 mg PO Q6H PRN 3 Days #16 tablet 03/04/18 [Rx] Meropenem [Merrem] 1 gm IVPB Q8H 14 Days #42 vial 03/04/18 [Rx] Follow up Appointment(s)/Referral(s): Gianfranco Dela Cruz DO [Primary Care Provider] - 1-2 days Discharge Disposition: TRANSFER TO SNF/ECF
== END 2018-03-04 13:54 | DRG 690 ==
LOC: EC 16:35 → 4MS4W 21:10 → 5MS5E 03-01 04:17
PROVIDERS: ADMIT Internal Medicine; ATTEND Internal Medicine
DX: N39.0 Urinary tract infection, site not specified (principal); B96.20 Unspecified Escherichia coli [E. coli] as the cause of diseases classified elsewhere; I10 Essential (primary) hypertension; E11.9 Type 2 diabetes mellitus without complications; F03.90 Unspecified dementia, unspecified severity, without behavioral disturbance, psychotic disturbance, mood disturbance, and anxiety; G47.33 Obstructive sleep apnea (adult) (pediatric); N40.1 Benign prostatic hyperplasia with lower urinary tract symptoms; R33.9 Retention of urine, unspecified; E78.5 Hyperlipidemia, unspecified; M19.90 Unspecified osteoarthritis, unspecified site; Z16.12 Extended spectrum beta lactamase (ESBL) resistance; G89.29 Other chronic pain; E66.9 Obesity, unspecified; Z96.643 Presence of artificial hip joint, bilateral; R11.0 Nausea; Z96.652 Presence of left artificial knee joint; Z68.28 Body mass index [BMI] 28.0-28.9, adult; Z88.1 Allergy status to other antibiotic agents; Z87.891 Personal history of nicotine dependence; Z79.899 Other long term (current) drug therapy; Z79.891 Long term (current) use of opiate analgesic; Z79.82 Long term (current) use of aspirin; Z80.9 Family history of malignant neoplasm, unspecified; Z85.46 Personal history of malignant neoplasm of prostate; Z87.440 Personal history of urinary (tract) infections
CPT/HCPCS: 00000; 36415; 51702; 51798; 74018; 80048; 80053; 81001; 82150; 83605; 83690; 85025; 87040; 87077; 87086; 87186; 87324; 94640; 96365; 96366; 96367; 96375; 99285

== ENCOUNTER 2021-02-23 14:18 | Inpatient (IN) | payer MEDICARE, BC ==
--- NOTE | 2021-02-23 14:39 | ED ---
SOB HPI - General Chief Complaint: Shortness of Breath Stated Complaint: SOB Time Seen by Provider: 02/23/21 14:26 Source: patient Mode of arrival: ambulatory Limitations: no limitations - History of Present Illness Initial Comments: Gutierrez is an 80-year-old male with extensive past medical history who presents to the emergency department today by private vehicle for evaluation of hypoxia and shortness of breath. Patient was admitted last week to [facility] after a fall. He was found to have a urinary tract infection and discharged home on new antibiotics daughter believes it was doxycycline. Today patient seemed to have some increased work of breathing and also oximeter was reading in the mid 80s so EMS was contacted. Patient denies chest pain. Patient denies any pulmonary history such as COPD or asthma he was a smoker but quit 20 years ago. He denies ever doing breathing treatments. Denies cardiac history but is on multiple cardiac meds. Patient does have some dementia is not the most reliable historian. - Related Data Home Medications Medication Instructions Recorded Confirmed Aspirin EC [Ecotrin Low Dose] 81 mg PO DAILY 01/05/18 02/23/21 Atorvastatin [Lipitor] 20 mg PO HS 01/05/18 02/23/21 Carvedilol [Coreg] 25 mg PO BID 01/05/18 02/23/21 Tamsulosin HCl [Flomax] 0.4 mg PO HS 01/05/18 02/23/21 amLODIPine [Norvasc] 10 mg PO DAILY 01/05/18 02/23/21 Celecoxib [CeleBREX] 200 mg PO BID 02/23/21 02/23/21 DULoxetine HCL [Cymbalta] 60 mg PO DAILY 02/23/21 02/23/21 Docusate [Colace] 100 mg PO HS 02/23/21 02/23/21 Doxycycline Hyclate 100 mg PO BID 02/23/21 02/23/21 Finasteride [Proscar] 5 mg PO HS 02/23/21 02/23/21 Fluticasone/Umeclidin/Vilanter 1 puff INHALATION RT-DAILY 02/23/21 02/23/21 [Trelegy Ellipta 100-62.5-25] Furosemide [Lasix] 20 mg PO DAILY 02/23/21 02/23/21 Insulin Degludec [Tresiba 53 units SQ DAILY 02/23/21 02/23/21 Flextouch U-200] Itraconazole [Sporanox] 100 mg PO DAILY 02/23/21 02/23/21 Losartan Potassium 50 mg PO DAILY 02/23/21 02/23/21 Pantoprazole Sodium [Protonix] 40 mg PO DAILY 02/23/21 02/23/21 Potassium Chloride ER [K-Dur 10] 10 meq PO DAILY 02/23/21 02/23/21 Pregabalin [Lyrica] 100 mg PO BID 02/23/21 02/23/21 Semaglutide [Ozempic] 2 mg SQ ANGULO 02/23/21 02/23/21 traZODone HCL [Desyrel] 100 mg PO HS 02/23/21 02/23/21 Allergies Allergy/AdvReac Type Severity Reaction Status Date / Time ciprofloxacin [From Cipro] Allergy Rash/Hives Verified 02/23/21 15:23 Review of Systems ROS Statement: Those systems with pertinent positive or pertinent negative responses have been documented in the HPI. ROS Other: All systems not noted in ROS Statement are negative. Past Medical History Past Medical History: Dementia, Diabetes Mellitus, Hyperlipidemia, Hypertension, Prostate Disorder, Skin Disorder Additional Past Medical History / Comment(s): Pt recently admitted to [facility] on 01/01/18 with AMS, UTI/sepsis, L buttock pressure ulcer stage III-pt states now nearly healed. Other hx: BPH, prostate cancer-monitoring, chronic incomplete bladder emptying/retention, IDC, NIDDM type II, ALANA-seldom uses device. History of Any Multi-Drug Resistant Organisms: ESBL Date of last positivie culture/infection: 02/28/18 MDRO Source:: ESBL URINE Additional Past Surgical History / Comment(s): Adriel hip replacement, L TKR, circumcision, midline IV insertion-discontinued. Past Anesthesia/Blood Transfusion Reactions: No Reported Reaction Past Psychological History: No Psychological Hx Reported Smoking Status: Never smoker Past Alcohol Use History: None Reported Past Drug Use History: None Reported - Past Family History Brother(s) Family Medical History: Cancer Father Family Medical History: No Reported History Additional Family Medical History / Comment(s): Father was pretty healthy and lived into his 80s. Mother Additional Family Medical History / Comment(s): Mother had a bening tumor posterior neck that caused paralysis. General Exam - General Exam Comments Initial Comments: Physical Exam GENERAL: Elderly, no acute distress HENT: Normocephalic, Atraumatic. EYES: PERRL, EOMI PULMONARY: Tachypnea CARDIOVASCULAR: Tachycardia ABDOMEN: Obese, significant bruising over left flank SKIN: Bruising over left flank : Indwelling posey catheter NEUROLOGIC: Patient is alert and oriented to person MUSCULOSKELETAL: Normal extremities with adequate strength and full range of motion. No lower extremity swelling or edema. PSYCHIATRIC: Dementia Limitations: no limitations Course Vital Signs 02/23/21 14:21 Temperature 98.7 F Pulse Rate 84 Respiratory 24 Rate Blood Pressure 111/67 O2 Sat by Pulse 84 L Oximetry Medical Decision Making - Medical Decision Making Patient was seen and evaluated history was obtained from patient and daughter at bedside Labs and imaging were obtained Labs with leukocytosis, COVID is negative Chest x-ray with evidence of pneumonia considering patient's recent admission to the hospital we will treat with broad-spectrum antibiotics Admission was discussed with Dr. Garza of the [facility] hospitalist group who accepts the patient - Lab Data Result diagrams: 02/23/21 14:41 02/23/21 14:41 Lab Results 02/23/21 02/23/21 02/23/21 Range/Units 14:41 14:41 14:41 WBC 17.6 H (3.8-10.6) k/uL RBC 4.16 L (4.30-5.90) m/uL Hgb 11.0 L (13.0-17.5) gm/dL Hct 36.5 L (39.0-53.0) % MCV 87.9 (80.0-100.0) fL MCH 26.5 (25.0-35.0) pg MCHC 30.2 L (31.0-37.0) g/dL RDW 15.3 (11.5-15.5) % Plt Count 232 (150-450) k/uL MPV 6.6 Neutrophils % 86 % Lymphocytes % 3 % Monocytes % 8 % Eosinophils % 1 % Basophils % 0 % Neutrophils # 15.1 H (1.3-7.7) k/uL Lymphocytes # 0.6 L (1.0-4.8) k/uL Monocytes # 1.3 H (0-1.0) k/uL Eosinophils # 0.1 (0-0.7) k/uL Basophils # 0.0 (0-0.2) k/uL Hypochromasia Moderate PT 10.7 (9.0-12.0) sec INR 1.0 (<1.2) APTT 25.6 (22.0-30.0) sec Sodium 139 (137-145) mmol/L Potassium 4.3 (3.5-5.1) mmol/L Chloride 95 L (98-107) mmol/L Carbon Dioxide 39 H (22-30) mmol/L Anion Gap 5 mmol/L BUN 38 H (9-20) mg/dL Creatinine 1.15 (0.66-1.25) mg/dL Est GFR (CKD-EPI)AfAm 69 (>60 ml/min/1.73 sqM) Est GFR (CKD-EPI)NonAf 60 (>60 ml/min/1.73 sqM) Glucose 289 H (74-99) mg/dL Plasma Lactic Acid [place] (0.7-2.0) mmol/L Calcium 8.9 (8.4-10.2) mg/dL Magnesium 1.7 (1.6-2.3) mg/dL Total Bilirubin 0.6 (0.2-1.3) mg/dL AST 13 L (17-59) U/L ALT 11 (4-49) U/L Alkaline Phosphatase 109 (38-126) U/L Lactate Dehydrogenase 408 (313-618) U/L Troponin I (0.000-0.034) ng/mL C-Reactive Protein 25.2 H (<1.0) mg/dL NT-Pro-B Natriuret Pep pg/mL Total Protein 5.5 L (6.3-8.2) g/dL Albumin 2.8 L (3.5-5.0) g/dL Urine Color Urine Appearance (Clear) Urine pH (5.0-8.0) Ur Specific [place] (1.001-1.035) Urine Protein (Negative) Urine Glucose (UA) (Negative) Urine Ketones (Negative) Urine Blood (Negative) Urine Nitrite (Negative) Urine Bilirubin (Negative) Urine Urobilinogen (<2.0) mg/dL Ur Leukocyte Esterase (Negative) Urine RBC (0-5) /hpf Urine WBC (0-5) /hpf Urine Bacteria (None) /hpf Urine Mucus (None) /hpf Coronavirus (PCR) (Not Detectd) 02/23/21 02/23/21 02/23/21 Range/Units 14:41 14:41 14:41 WBC (3.8-10.6) k/uL RBC (4.30-5.90) m/uL Hgb (13.0-17.5) gm/dL Hct (39.0-53.0) % MCV (80.0-100.0) fL MCH (25.0-35.0) pg MCHC (31.0-37.0) g/dL RDW (11.5-15.5) % Plt Count (150-450) k/uL MPV Neutrophils % % Lymphocytes % % Monocytes % % Eosinophils % % Basophils % % Neutrophils # (1.3-7.7) k/uL Lymphocytes # (1.0-4.8) k/uL Monocytes # (0-1.0) k/uL Eosinophils # (0-0.7) k/uL Basophils # (0-0.2) k/uL Hypochromasia PT (9.0-12.0) sec INR (<1.2) APTT (22.0-30.0) sec Sodium (137-145) mmol/L Potassium (3.5-5.1) mmol/L Chloride (98-107) mmol/L Carbon Dioxide (22-30) mmol/L Anion Gap mmol/L BUN (9-20) mg/dL Creatinine (0.66-1.25) mg/dL Est GFR (CKD-EPI)AfAm (>60 ml/min/1.73 sqM) Est GFR (CKD-EPI)NonAf (>60 ml/min/1.73 sqM) Glucose (74-99) mg/dL Plasma Lactic Acid [place] 1.2 (0.7-2.0) mmol/L Calcium (8.4-10.2) mg/dL Magnesium (1.6-2.3) mg/dL Total Bilirubin (0.2-1.3) mg/dL AST (17-59) U/L ALT (4-49) U/L Alkaline Phosphatase (38-126) U/L Lactate Dehydrogenase (313-618) U/L Troponin I <0.012 (0.000-0.034) ng/mL C-Reactive Protein (<1.0) mg/dL NT-Pro-B Natriuret Pep 402 pg/mL Total Protein (6.3-8.2) g/dL Albumin (3.5-5.0) g/dL Urine Color Urine Appearance (Clear) Urine pH (5.0-8.0) Ur Specific [place] (1.001-1.035) Urine Protein (Negative) Urine Glucose (UA) (Negative) Urine Ketones (Negative) Urine Blood (Negative) Urine Nitrite (Negative) Urine Bilirubin (Negative) Urine Urobilinogen (<2.0) mg/dL Ur Leukocyte Esterase (Negative) Urine RBC (0-5) /hpf Urine WBC (0-5) /hpf Urine Bacteria (None) /hpf Urine Mucus (None) /hpf Coronavirus (PCR) (Not Detectd) 02/23/21 02/23/21 Range/Units 14:48 14:48 WBC (3.8-10.6) k/uL RBC (4.30-5.90) m/uL Hgb (13.0-17.5) gm/dL Hct (39.0-53.0) % MCV (80.0-100.0) fL MCH (25.0-35.0) pg MCHC (31.0-37.0) g/dL RDW (11.5-15.5) % Plt Count (150-450) k/uL MPV Neutrophils % % Lymphocytes % % Monocytes % % Eosinophils % % Basophils % % Neutrophils # (1.3-7.7) k/uL Lymphocytes # (1.0-4.8) k/uL Monocytes # (0-1.0) k/uL Eosinophils # (0-0.7) k/uL Basophils # (0-0.2) k/uL Hypochromasia PT (9.0-12.0) sec INR (<1.2) APTT (22.0-30.0) sec Sodium (137-145) mmol/L Potassium (3.5-5.1) mmol/L Chloride (98-107) mmol/L Carbon Dioxide (22-30) mmol/L Anion Gap mmol/L BUN (9-20) mg/dL Creatinine (0.66-1.25) mg/dL Est GFR (CKD-EPI)AfAm (>60 ml/min/1.73 sqM) Est GFR (CKD-EPI)NonAf (>60 ml/min/1.73 sqM) Glucose (74-99) mg/dL Plasma Lactic Acid [place] (0.7-2.0) mmol/L Calcium (8.4-10.2) mg/dL Magnesium (1.6-2.3) mg/dL Total Bilirubin (0.2-1.3) mg/dL AST (17-59) U/L ALT (4-49) U/L Alkaline Phosphatase (38-126) U/L Lactate Dehydrogenase (313-618) U/L Troponin I (0.000-0.034) ng/mL C-Reactive Protein (<1.0) mg/dL NT-Pro-B Natriuret Pep pg/mL Total Protein (6.3-8.2) g/dL Albumin (3.5-5.0) g/dL Urine Color Yellow Urine Appearance Cloudy (Clear) Urine pH 5.5 (5.0-8.0) Ur Specific [place] 1.021 (1.001-1.035) Urine Protein 1+ H (Negative) Urine Glucose (UA) 3+ H (Negative) Urine Ketones Negative (Negative) Urine Blood Small H (Negative) Urine Nitrite Negative (Negative) Urine Bilirubin Negative (Negative) Urine Urobilinogen <2.0 (<2.0) mg/dL Ur Leukocyte Esterase Negative (Negative) Urine RBC 27 H (0-5) /hpf Urine WBC 7 H (0-5) /hpf Urine Bacteria Rare H (None) /hpf Urine Mucus Rare H (None) /hpf Coronavirus (PCR) Not Detected (Not Detectd) - EKG Data -: EKG Interpreted by Fl EKG Comments: EKG was obtained due to complaint of shortness of breath, EKG was obtained at 1424, rate is 83 rhythm is sinus with PACs, IN 188 QRS 94 QTC [address] e levations or depressions no evidence of ischemia or infarction. Disposition Clinical Impression: Pneumonia, Dementia, Indwelling Posey catheter present Disposition: ADMITTED IP TO THIS [facility] Condition: Serious Referrals: Gianfranco Dela Cruz DO [Primary Care Provider] - 1-2 days
[2021-02-23 14:59] LABS: Basophils % (A) 0 %; Eosinophils # (A) 0.1 k/uL (0-0.7); Eosinophils % (A) 1 %; HCT 36.5 % (39.0-53.0); Hypochromasia Moderate; Lymphocytes # (A) 0.6 k/uL (1.0-4.8); Lymphocytes % (A) 3 %; MCH 26.5 pg (25.0-35.0); MCHC 30.2 g/dL (31.0-37.0); MCV 87.9 fL (80.0-100.0); Mean Platelet Volume 6.6; Monocytes # (A) 1.3 k/uL (0-1.0); Monocytes % (A) 8 %; Neutrophils # (A) 15.1 k/uL (1.3-7.7); Neutrophils % (A) 86 %; Platelet Count 232 k/uL (150-450); RBC 4.16 m/uL (4.30-5.90); RDW 15.3 % (11.5-15.5); WBC 17.6 k/uL (3.8-10.6)
[2021-02-23 15:10] LABS: Potassium 4.3 mmol/L (3.5-5.1)
[2021-02-23 15:12] LABS: Albumin 2.8 g/dL (3.5-5.0); Calcium 8.9 mg/dL (8.4-10.2); Magnesium 1.7 mg/dL (1.6-2.3); Total Bilirubin 0.6 mg/dL (0.2-1.3); Total Protein 5.5 g/dL (6.3-8.2)
[2021-02-23 15:16] LABS: Appearance,Urine Cloudy (Clear); Bacteria,Urine Rare /hpf; Bilirubin,Urine Negative (Negative); Blood,Urine Small (Negative); Color,Urine Yellow; Glucose,Urine (UA) 3+ (Negative); Ketones,Urine Negative (Negative); Leukocyte Esterase,Urine Negative (Negative); Mucus,Urine Rare /hpf; Nitrite,Urine Negative (Negative); PH, Urine 5.5 (5.0-8.0); Protein,Urine 1+ (Negative); RBC,Urine 27 /hpf (0-5); Specific Gravity,Urine 1.021 (1.001-1.035); Urobilinogen,Urine <2.0 mg/dL (<2.0); WBC,Urine 7 /hpf (0-5)
[2021-02-23 15:21] LABS: Partial Thromboplastin Time 25.6 sec (22.0-30.0); Prothrombin Time 10.7 sec (9.0-12.0)
--- NOTE | 2021-02-23 15:29 | XR ---
EXAMINATION TYPE: XR chest 1V portable DATE OF EXAM: 02/23/2021 COMPARISON: 01/05/2018 HISTORY: Short of breath TECHNIQUE: Single view FINDINGS: Heart is normal. There is some airspace infiltrate right lower lobe. There is no heart fail ure. There are no hilar masses. There are chest leads. IMPRESSION: There is some right lower lobe pneumonia that is new compared to old exam. No heart failu re.
[2021-02-23 15:36] LABS: C Reactive Protein 25.2 mg/dL (<1.0)
[2021-02-23] MEDS ORDERED: PNEUMONIA PROTOCOL UTILIZED 1 EACH MISC PO PRN (15:37)
[2021-02-23] MEDS ORDERED: NALOXONE 0.4 MG/ML 1 ML VIAL IV PRN (15:38)
[2021-02-23] MEDS ORDERED: PIPERACILLIN-TAZOBACTAM 3.375 GM in SODIUM CHLORIDE 0.9% 100 ML IVPB ONE (16:00)
[2021-02-23] MEDS ORDERED: IPRATROPIUM-ALBUTEROL 3 ML NEB INHALATION PRN (18:41)
--- NOTE | 2021-02-23 19:36 | HP ---
HISTORY AND PHYSICAL DATE OF SERVICE: 02/23/2021 CHIEF COMPLAINT: Shortness of breath. HISTORY OF PRESENT ILLNESS: This 80-year-old gentleman with a past medical history of multiple medical problems including history of dementia, history of diabetes, hypertension, hyperlipidemia, history of prostate disorder, history of left buttock ulcer, history of ESBL in the urine, being followed by Dr. Gianfranco Dela Cruz in the outpatient setting came with complaints of shortness of breath for several days. The patient was admitted last week in [facility] after following the patient's UTI and the patient was apparently started on doxycycline. The patient is also on oxygen. Patient quit smoking over 20 years ago. Currently the patient has features of acute respiratory failure. Patient started on BiPAP. The patient unable to give coherent history. Most of the history taken from my discussion with staff and discussion with the ER physician. White count is elevated and UA is slightly abnormal. Chest x-ray which was done in the ER showed possible bilateral pneumonia. The patient admitted for evaluation and treatment. There is no history of any trauma at this time. PAST MEDICAL HISTORY: History of dementia, history of diabetes, hypertension, hyperlipidemia, prostate disorder. MEDICATIONS: Home medications are: Desyrel, Norvasc, Flomax, Ozempic, Lyrica, K-Dur, Protonix, losartan, Sporanox, Tarceva, Lasix, trilogy, Proscar, Colace, Cymbalta, Coreg. Lipitor, Ecotrin. ALLERGIES: CIPRO. Family history, social history and review of systems could not be taken because the patient's change in mental status. PHYSICAL EXAMINATION: Pulse is 82, blood pressure 130/61, respiration 22, temperature 98 degrees, pulse ox 94% on BiPAP. BIPAP settings noted. HEENT: Conjunctivae normal. Oral mucosa moist. NECK: No JVD. CARDIOVASCULAR systems: S1, S2 muffled. RESPIRATION: Breath sounds diminished in the bases. A few scattered rhonchi and crackles. ABDOMEN: Soft, nontender. Obese. LEGS: No edema. No swelling. NERVOUS SYSTEM: No focal deficits. LABS: At this time: WBC is 7.9, hemoglobin 11. Other labs are noted. Chest x-ray reviewed personally by me. ASSESSMENT: 1. Acute bilateral pneumonia, right more the left with acute hypoxic hypercarbic respiratory failure on BiPAP. 2. Change in mental status, acute metabolic encephalopathy. 3. Increased WBC. 4. Anemia. 5. History of recent urinary tract infection. 6. Diabetes mellitus type 2 uncontrolled. 7. Possible obesity hypoventilation syndrome and as well as sleep apnea. 8. Hypoalbuminemia. 9. Mild protein calorie malnutrition. 10.Dementia. 11.Hypertension. 12.History of prostate disorder. 13.History of left buttock pressure ulcer, stage III. 14.History of prostate cancer. 15.History ESBL in the urine. 16.History of degenerative joint disease, bilateral hip replacement. 17.FULL CODE. RECOMMENDATIONS AND DISCUSSION: This 80-year-old gentleman who presented with multiple complex medical issues, we will monitor the patient closely, continue the current medications, management and symptomatic treatment. We will initiate broad-spectrum IV antibiotics. Bronchodilators. Resume the home medications. Pulmonary will be consulted. PT/OT also will be consulted once the patient's condition improves. Overall prognosis guarded because of multiple complex medical issues. See orders for details. Further recommendations to follow. The patient had a Covid 19 testing which was negative at this time. Cultures will be obtained. A copy of this dictation being forwarded to Dr. Gianfranco Dela Cruz who is the primary physician. MMODL / IJN: [id number] /
[2021-02-23] MEDS: FORMOTEROL FUMARATE 20 MCG/2 ML NEBU INHALATION SCH (20:04)
[2021-02-23] MEDS: BUDESONIDE 1 MG/2 ML NEBU INHALATION SCH (20:04)
[2021-02-23] MEDS: IPRATROPIUM-ALBUTEROL 3 ML NEB INHALATION SCH (20:04)
[2021-02-23] MEDS: TAMSULOSIN 0.4 MG CAP.ER.24H PO SCH (20:25)
[2021-02-23] MEDS: PREGABALIN 100 MG CAP PO SCH (20:25)
[2021-02-23] MEDS: FINASTERIDE 5 MG TAB PO SCH (20:25)
[2021-02-23] MEDS: ATORVASTATIN 20 MG TAB PO SCH (20:26)
[2021-02-23] MEDS: carvediloL 12.5 MG TAB PO SCH (20:26)
[2021-02-23] MEDS: HEPARIN SODIUM,PORCINE/PF 5,000 UNIT/0.5 ML SYRINGE SQ SCH (20:26)
[2021-02-24] MEDS: PIPERACILLIN-TAZOBACTAM 3.375 GM in SODIUM CHLORIDE 0.9% 100 ML IVPB SCH ×4 (00:07→16:55)
[2021-02-24] MEDS: BUDESONIDE 1 MG/2 ML NEBU INHALATION SCH ×2 (08:22→21:14)
[2021-02-24] MEDS: IPRATROPIUM-ALBUTEROL 3 ML NEB INHALATION SCH ×3 (08:22→21:15)
[2021-02-24] MEDS: FORMOTEROL FUMARATE 20 MCG/2 ML NEBU INHALATION SCH ×2 (08:22→21:14)
[2021-02-24] MEDS: ASPIRIN 81 MG PO SCH (08:25)
[2021-02-24] MEDS: ITRACONAZOLE 100 MG CAP PO SCH (08:25)
[2021-02-24] MEDS: INSULIN DETEMIR (LEVEMIR) 100 UNIT/ML SYR SQ SCH (08:25)
[2021-02-24] MEDS: carvediloL 12.5 MG TAB PO SCH ×2 (08:25→16:56)
[2021-02-24] MEDS: FUROSEMIDE 20 MG TAB PO SCH (08:25)
[2021-02-24] MEDS: amLODIPine 10 MG TAB PO SCH (08:26)
[2021-02-24] MEDS: PANTOPRAZOLE 40 MG TABLET PO SCH (08:26)
[2021-02-24] MEDS: DULoxetine HCL 60 MG CAPSULE.DR PO SCH (08:26)
[2021-02-24] MEDS: POTASSIUM CHLORIDE ER 10 MEQ TAB.ER.PRT PO SCH (08:26)
[2021-02-24] MEDS: PREGABALIN 100 MG CAP PO SCH ×2 (08:26→20:50)
[2021-02-24] MEDS: LOSARTAN 50 MG TAB PO SCH (08:26)
[2021-02-24] MEDS: HEPARIN SODIUM,PORCINE/PF 5,000 UNIT/0.5 ML SYRINGE SQ SCH ×2 (08:26→20:49)
[2021-02-24] MEDS ORDERED: AZITHROMYCIN 500 MG in SODIUM CHLORIDE 0.9% 250 ML IVPB SCH (09:00)
[2021-02-24 09:04] LABS: Glucose,Whole Blood 417 mg/dL (75-99)
[2021-02-24] MEDS ORDERED: INSULIN ASPART (NovoLOG) 100 UNIT/ML VIAL SQ ONE (09:13)
[2021-02-24] MEDS: ALPRAZolam 0.25 MG TAB PO PRN ×2 (09:18→17:30)
[2021-02-24] MEDS: HYDROcodone/APAP 5-325MG 1 EACH TAB PO PRN (10:32)
[2021-02-24 11:43] LABS: Glucose,Whole Blood 421 mg/dL (75-99)
[2021-02-24 11:45] LABS: African American GFR (CKD) 59.3 (60.0-200.0); Anion Gap 5.3 mmol/L (4.00-12.00); BUN/Creat Ratio 30.77 Ratio (12.00-20.00); Carbon Dioxide 37.7 mmol/L (21.6-31.8); Non-African American GFR(CKD) 51.2 (60.0-200.0); Potassium 4.9 mmol/L (3.5-5.5)
[2021-02-24 12:01] LABS: Basophils # (A) 0.01 X 10*3/uL (0.00-0.10); Basophils % (A) 0.1 %; Eosinophils # (A) 0 X 10*3/uL (0.04-0.35); Eosinophils % (A) 0 %; HCT 38.6 % (39.6-50.0); HGB 11.1 g/dL (13.0-17.0); Lymphocytes # (A) 0.34 X 10*3/uL (0.90-5.00); Lymphocytes % (A) 2.8 %; MCH 26.7 pg (27.0-32.0); MCHC 28.8 g/dL (32.0-37.0); Mean Platelet Volume 9.6 fL (9.5-12.2); Monocytes % (A) 1.6 %; Neutrophils # (A) 11.58 X 10*3/uL (1.80-7.70); Neutrophils % (A) 94.6 %; Platelet Count 221 X 10*3/uL (140-440); RBC 4.15 X 10*6/uL (4.40-5.60); RDW 14.9 % (11.5-14.5); WBC 12.24 X 10*3/uL (4.50-10.00)
[2021-02-24] MEDS: INSULIN ASPART (NovoLOG) 100 UNIT/ML VIAL SQ SCH ×3 (12:35→20:49)
--- NOTE | 2021-02-24 15:35 | P.CNPUL ---
History of Present Illness Consult date: 02/24/21 Requesting physician: Jonas Garza Reason for consult: dyspnea, cough, hypoxemia, pneumonia, abnormal CXR/CT Chief complaint: Shortness of breath, cough. History of present illness: Pulmonary consult dated 02/24/2021. 80-year-old male, who presents to the emergency department on February 23, by private vehicle, for apparent shortness of breath. The patient was recently at [facility] after a fall. At that time, he was apparently found to have a urinary tract infection and was discharged home on antibiotics. Apparently the day of admission to the emergency department, February 23, the patient was having increasing shortness of breath, and saturations in the mid 80s. EMS was called. Hence he was brought in to be evaluated. He denied any chest pain. The patient does have a history of extensive tobacco use, although he quit 20 years ago, he did start smoking at the age of 14. He denies a history of COPD or asthma. Currently, his chest x-ray shows a possible infiltr ate in the right lower lobe. He is on 4 L of oxygen, her saturations are 92%. He is afebrile. His blood pressure, heart rate, respiratory rate overall stable. White count 12.24, hemoglobin 11.1, hematocrit 38.6, and platelet count 221,000. PT, INR, and PTT are all normal. Sodium 144, potassium 4.9, chlorides 101, CO2 38, anion gap 5, BUN 40, creatinine 1.3. Polk virus testing was negative. Review of Systems REVIEW OF SYSTEMS: CONSTITUTIONAL: Confusion. NEUROLOGIC: [ Negative.] HEENT: [ Negative.] CARDIAC: [Negative.] PULMONARY: Shortness of breath and cough. GI: [Negative.] : [Negative.] RHEUMATOLOGIC: [ Negative.] IMMUNOLOGIC: [ Negative.] ENDOCRINE: [Negative. ] DERMATOLOGIC: [Negative.] Past Medical History Past Medical History: Dementia, Diabetes Mellitus, Hyperlipidemia, Hypertension, Prostate Disorder, Skin Disorder Additional Past Medical History / Comment(s): admitted to [facility] on 01/01/18 with AMS, UTI/sepsis, L buttock pressure ulcer stage III-pt states now nearly healed. Other hx: BPH, prostate cancer-monitoring, chronic incomplete bladder emptying/retention, IDC, NIDDM type II, ALANA-seldom uses device. History of Any Multi-Drug Resistant Organisms: ESBL Date of last positivie culture/infection: 02/28/18 MDRO Source:: ESBL URINE Additional Past Surgical History / Comment(s): Adriel hip replacement, L TKR, circumcision, midline IV insertion-discontinued. Past Anesthesia/Blood Transfusion Reactions: No Reported Reaction Past Psychological History: No Psychological Hx Reported Additional Psychological History / Comment(s): Pt currently residing with his spouse. He uses a cane or walker to ambulate. He states his spouse performs his blood glucose monitoring. He states he drives. No home care at this time. Spouse manages his medications. Pt states he has a cpap but uses it seldom. Smoking Status: Unknown if ever smoked Past Alcohol Use History: None Reported Additional Past Alcohol Use History / Comment(s): Started smoking in 1955 and quit approximately 2007. Past Drug Use History: None Reported - Past Family History Brother(s) Family Medical History: Cancer Father Family Medical History: No Reported History Additional Family Medical History / Comment(s): Father was pretty healthy and lived into his 80s. Mother Additional Family Medical History / Comment(s): Mother had a bening tumor posterior neck that caused paralysis. Medications and Allergies Home Medications Medication Instructions Recorded Confirmed Type Aspirin EC [Ecotrin Low Dose] 81 mg PO DAILY 01/05/18 02/23/21 History Atorvastatin [Lipitor] 20 mg PO HS 01/05/18 02/23/21 History Carvedilol [Coreg] 25 mg PO BID 01/05/18 02/23/21 History Tamsulosin HCl [Flomax] 0.4 mg PO HS 01/05/18 02/23/21 History amLODIPine [Norvasc] 10 mg PO DAILY 01/05/18 02/23/21 History Celecoxib [CeleBREX] 200 mg PO BID 02/23/21 02/23/21 History DULoxetine HCL [Cymbalta] 60 mg PO DAILY 02/23/21 02/23/21 History Docusate [Colace] 100 mg PO HS 02/23/21 02/23/21 History Doxycycline Hyclate 100 mg PO BID 02/23/21 02/23/21 History Finasteride [Proscar] 5 mg PO HS 02/23/21 02/23/21 History Fluticasone/Umeclidin/Vilanter 1 puff INHALATION RT-DAILY 02/23/21 02/23/21 History [Trelegy Ellipta 100-62.5-25] Furosemide [Lasix] 20 mg PO DAILY 02/23/21 02/23/21 History Insulin Degludec [Tresiba 53 units SQ DAILY 02/23/21 02/23/21 History Flextouch U-200] Itraconazole [Sporanox] 100 mg PO DAILY 02/23/21 02/23/21 History Losartan Potassium 50 mg PO DAILY 02/23/21 02/23/21 History Pantoprazole Sodium [Protonix] 40 mg PO DAILY 02/23/21 02/23/21 History Potassium Chloride ER [K-Dur 10] 10 meq PO DAILY 02/23/21 02/23/21 History Pregabalin [Lyrica] 100 mg PO BID 02/23/21 02/23/21 History Semaglutide [Ozempic] 2 mg SQ ANGULO 02/23/21 02/23/21 History traZODone HCL [Desyrel] 100 mg PO HS 02/23/21 02/23/21 History Allergies Allergy/AdvReac Type Severity Reaction Status Date / Time ciprofloxacin [From Cipro] Allergy Rash/Hives Verified 02/23/21 15:23 Physical Exam Osteopathic Statement: *. No significant issues noted on an osteopathic structural exam other than those noted in the History and Physical/Consult. Vitals: Vital Signs Temp Pulse Pulse Resp BP BP Pulse Ox 02/24/21 13:51 97.7 F 60 22 125/59 92 L 02/24/21 11:42 78 02/24/21 11:30 76 02/24/21 10:24 98.8 F 90 19 129/70 92 L 02/24/21 08:37 76 02/24/21 08:31 74 02/24/21 08:30 74 02/24/21 08:22 74 02/24/21 08:00 60 22 02/24/21 05:47 97.8 F 89 25 H 158/79 93 L 02/24/21 02:00 98.4 F 83 21 146/76 92 L 02/23/21 21:15 97.5 F L 72 28 H 134/73 92 L 02/23/21 21:03 92 L 04/25/21 20:21 76 02/23/21 20:07 72 02/23/21 20:00 20 02/23/21 18:02 98.6 F 77 21 130/63 93 L 02/23/21 17:13 82 22 130/62 94 L 02/23/21 15:49 83 22 122/66 97 Intake and Output 02/24/21 02/24/21 02/24/21 06:59 14:59 22:59 Output Total 750 600 Balance -750 -600 Output: Urine 750 600 Other: Voiding Method Indwelling Catheter No acute distress, a bit confused, currently on 4 L, with saturations in the low to mid 90s. No use of accessory muscles or conversational dyspnea. HEENT examination is grossly unremarkable. Neck supple. Full range of motion. No adenopathy thyromegaly or neck vein distention. Cardiovascular examination reveals regular rhythm rate. S1-S2 normal. No S3 or S4. No discernible murmur noted. Heart rate 60 bpm. Lungs reveal mostly clear breath sounds. A few scattered rhonchi are noted. No wheezes or crackles. Breath sounds equal bilaterally.. Abdomen soft bowel sounds are heard. No masses or tenderness. Extremities are intact. No cyanosis clubbing or edema. Skin is without rash or lesion. Neurologic examination is brief but nonfocal. Results - Laboratory Findings CBC and BMP: 02/24/21 07:26 02/24/21 07:26 PT/INR, D-dimer PT 10.7 sec (9.0-12.0) 02/23/21 14:41 INR 1.0 (<1.2) 02/23/21 14:41 Abnormal lab findings: Abnormal Labs 02/23/21 02/23/21 02/23/21 14:41 14:41 14:41 WBC 17.6 H RBC 4.16 L Hgb 11.0 L Hct 36.5 L MCH MCHC 30.2 L RDW Immature Gran # Neutrophils # 15.1 H Lymphocytes # 0.6 L Monocytes # 1.3 H Eosinophils # Chloride 95 L Carbon Dioxide 39 H BUN 38 H Est GFR (CKD-EPI)AfAm Est GFR (CKD-EPI)NonAf BUN/Creatinine Ratio Glucose 289 H POC Glucose (mg/dL) AST 13 L C-Reactive Protein 25.2 H Total Protein 5.5 L Albumin 2.8 L Procalcitonin 1.54 H Urine Protein Urine Glucose (UA) Urine Blood Urine RBC Urine WBC Urine Bacteria Urine Mucus 02/23/21 02/24/21 02/24/21 14:48 07:26 07:26 WBC 12.24 H RBC 4.15 L Hgb 11.1 L Hct 38.6 L MCH 26.7 L MCHC 28.8 L RDW 14.9 H Immature Gran # 0.11 H Neutrophils # 11.58 H Lymphocytes # 0.34 L Monocytes # Eosinophils # 0 L Chloride Carbon Dioxide 37.7 H BUN 40.0 H Est GFR (CKD-EPI)AfAm 59.3 L Est GFR (CKD-EPI)NonAf 51.2 L BUN/Creatinine Ratio 30.77 H Glucose 400 H POC Glucose (mg/dL) AST C-Reactive Protein Total Protein Albumin Procalcitonin Urine Protein 1+ H Urine Glucose (UA) 3+ H Urine Blood Small H Urine RBC 27 H Urine WBC 7 H Urine Bacteria Rare H Urine Mucus Rare H 02/24/21 02/24/21 09:02 11:41 WBC RBC Hgb Hct MCH MCHC RDW Immature Gran # Neutrophils # Lymphocytes # Monocytes # Eosinophils # Chloride Carbon Dioxide BUN Est GFR (CKD-EPI)AfAm Est GFR (CKD-EPI)NonAf BUN/Creatinine Ratio Glucose POC Glucose (mg/dL) 417 H 421 H AST C-Reactive Protein Total Protein Albumin Procalcitonin Urine Protein Urine Glucose (UA) Urine Blood Urine RBC Urine WBC Urine Bacteria Urine Mucus - Diagnostic Findings Chest x-ray: image reviewed Assessment and Plan Assessment: Acute hypoxemic respiratory failure secondary to possible right lower lobe pn eumonia. Recent admission to [facility] for urinary tract infection. History of dementia. History of diabetes mellitus. History of hyperlipidemia. History of hypertension. History of BPH. History of prostate cancer. History of sleep apnea syndrome, noncompliant with CPAP. Plan: Plan dated 02/24/2021. Currently, the patient is on Zosyn. This is probably good for monotherapy for his questionable pneumonia right lower lobe. This Zithromax will be discontinued. He remains on Pulmicort and formoterol, twice a day, and updrafts with albuterol sulfate and ipratropium bromide. The rest of the medications are his chronic medications. If not really ordered, a procalcitonin level will be. Corticosteroids are not necessary in this patient. Prognosis is guarded. We'll continue to follow. The patient is a DO NOT RESUSCITATE. Time with Patient: Greater than 30
[2021-02-24 16:26] LABS: Glucose,Whole Blood 216 mg/dL (75-99)
--- NOTE | 2021-02-24 17:06 | PN ---
PROGRESS NOTE DATE OF SERVICE: 02/24/2021 This 80-year-old gentleman admitted with acute bilateral pneumonia, right more than the left, is being closely monitored. Patient is on antibiotics. Patient is feeling slightly better. Patient is definitely much more alert compared to yesterday. The patient was recently admitted to [facility] for UTI. Past medical history reviewed. REVIEW OF SYSTEMS: CARDIOVASCULAR SYSTEM: No angina, palpitations. RESPIRATORY SYSTEM: As mentioned earlier. GI: As mentioned earlier. : No dysuria or retention. NERVOUS SYSTEM: No numbness, weakness. CURRENT MEDICATIONS: Reviewed. They include Trevor, DuoNeb, Xanax, Norvasc, Lipitor, Pulmicort, Cymbalta, Proscar, Perforomist, heparin, NovoLog, Sporanox. PHYSICAL EXAMINATION: Patient is alert, oriented x3. Pulse 60, blood pressure 125/59, respiration 22, temperature 97.7, pulse ox 92% on 4 L. HEENT: Conjunctivae normal. NECK: No jugular venous distention. CARDIOVASCULAR SYSTEM: S1, S2 muffled. RESPIRATORY SYSTEM: Breath sounds diminished at the bases. A few scattered rhonchi. No crackles. ABDOMEN: Soft, non-tender. LEGS: No edema. No swelling. NERVOUS SYSTEM: No focal deficit. LABS: WBC 12.2, hemoglobin 11.1, glucose 417. ASSESSMENT: 1. Acute bilateral pneumonia, right more than the left, with acute hypoxic hypercarbic respiratory failure, on BiPAP. Possible sepsis. 2. Change in mental status, acute metabolic encephalopathy. 3. Increased white count. 4. Anemia. 5. History of recent urinary tract infection. 6. Diabetes mellitus, type 2, uncontrolled with hyperglycemia. 7. Obesity hypoventilation syndrome as well as sleep apnea. 8. Hypoalbuminemia. 9. Mild protein-calorie malnutrition. 10.Dementia. 11.Hypertension. 12.History of prostate disorder. 13.History of left buttock pressure ulcer, stage 3. 14.History of prostate cancer. 15.Extended-spectrum beta-lactamase in the urine. 16.History of degenerative joint disease, bilateral hip replacement. 17.FULL CODE. RECOMMENDATIONS AND DISCUSSION: I recommend to continue current medications, continue with the monitoring, symptomatic treatment. The patient is started on broad-spectrum IV antibiotics. The cultures are pending at this time. Will continue to monitor. Closely follow with Pulmonary. Continue the rest of the medications. The patient has urine, blood and sputum cultures pending at this time. Continue the rest of the medications. PT/OT evaluation to evaluate for rehab. Guarded prognosis. Further recommendations to follow. See orders for further details. Prognosis guarded. MMODL / IJN: [id number] /
[2021-02-24 20:45] LABS: Glucose,Whole Blood 293 mg/dL (75-99)
[2021-02-24] MEDS: ATORVASTATIN 20 MG TAB PO SCH (20:50)
[2021-02-24] MEDS: TAMSULOSIN 0.4 MG CAP.ER.24H PO SCH (20:50)
[2021-02-24] MEDS: FINASTERIDE 5 MG TAB PO SCH (20:50)
[2021-02-25] MEDS: INSULIN DETEMIR (LEVEMIR) 100 UNIT/ML SYR SQ SCH (07:38)
[2021-02-25] MEDS: PREGABALIN 100 MG CAP PO SCH ×2 (07:39→20:42)
[2021-02-25] MEDS: ITRACONAZOLE 100 MG CAP PO SCH (07:39)
[2021-02-25] MEDS: DULoxetine HCL 60 MG CAPSULE.DR PO SCH (07:39)
[2021-02-25] MEDS: ASPIRIN 81 MG PO SCH (07:39)
[2021-02-25] MEDS: HEPARIN SODIUM,PORCINE/PF 5,000 UNIT/0.5 ML SYRINGE SQ SCH ×2 (07:39→20:42)
[2021-02-25] MEDS: POTASSIUM CHLORIDE ER 10 MEQ TAB.ER.PRT PO SCH (07:39)
[2021-02-25] MEDS: INSULIN ASPART (NovoLOG) 100 UNIT/ML VIAL SQ SCH ×4 (07:39→20:42)
[2021-02-25] MEDS: LOSARTAN 50 MG TAB PO SCH (07:39)
[2021-02-25] MEDS: PANTOPRAZOLE 40 MG TABLET PO SCH (07:39)
[2021-02-25] MEDS: PIPERACILLIN-TAZOBACTAM 3.375 GM in SODIUM CHLORIDE 0.9% 100 ML IVPB SCH ×2 (07:40→15:25)
[2021-02-25] MEDS: FUROSEMIDE 20 MG TAB PO SCH (07:40)
[2021-02-25] MEDS: carvediloL 12.5 MG TAB PO SCH ×2 (07:40→16:14)
[2021-02-25] MEDS: amLODIPine 10 MG TAB PO SCH (07:40)
[2021-02-25] MEDS: BUDESONIDE 1 MG/2 ML NEBU INHALATION SCH ×2 (07:50→20:19)
[2021-02-25] MEDS: FORMOTEROL FUMARATE 20 MCG/2 ML NEBU INHALATION SCH ×2 (07:50→20:19)
[2021-02-25] MEDS: IPRATROPIUM-ALBUTEROL 3 ML NEB INHALATION SCH ×3 (07:50→20:19)
[2021-02-25 08:19] LABS: Glucose,Whole Blood 296 mg/dL (75-99)
[2021-02-25] MEDS ORDERED: AZITHROMYCIN 500 MG TAB PO SCH (09:00)
[2021-02-25] MEDS: HYDROcodone/APAP 5-325MG 1 EACH TAB PO PRN (10:11)
[2021-02-25 11:41] LABS: Glucose,Whole Blood 222 mg/dL (75-99)
--- NOTE | 2021-02-25 12:45 | XR ---
EXAMINATION TYPE: XR chest 1V portable DATE OF EXAM: 02/25/2021 COMPARISON: 02/23/2021 HISTORY: Cough, pneumonia TECHNIQUE: Single frontal view of the chest is obtained. FINDINGS: Patchy interstitial infiltrates are seen bilaterally similar in appearance. No pneumothora x. Heart size is stable. Arthropathy of the shoulders. IMPRESSION: Bilateral patchy interstitial infiltrate stable.
--- NOTE | 2021-02-25 12:52 | P.PN ---
Subjective Patient is a pleasant 80-year-old female is admitted at for shortness of breath, hypoxia and possible right lower lobe pneumonia and patient is presently on 43-4 L of oxygen. Patient does use CPAP at nighttime for sleep apnea. Patient does have a stage III decubitus ulcer for which wound care is following the patient and the doing next dressing change will evaluate the wound. Patient does have history of dementia unable to get much of the history from the patient patient the mental status apparently is at her baseline. Review of systems: Unable to obtain due to her clinical condition All inpatient medications were reviewed and appropriate changes in these medications as dictated in the interval history and assessment and plan. Objective - Vital Signs Vital signs: Vital Signs Temp 97.5 F L 02/25/21 07:49 Pulse 72 02/25/21 11:00 Resp 22 02/25/21 07:49 BP 180/78 02/25/21 07:49 Pulse Ox 97 02/25/21 07:49 Intake & Output 02/24/21 02/25/21 02/25/21 18:59 06:59 18:59 Output Total 850 1200 Balance -850 -1200 Output: Urine 850 1200 Other: Voiding Method Indwelling Catheter Indwelling Catheter Indwelling Catheter - Exam PHYSICAL EXAMINATION: GENERAL: The patient is alert and able to assess his orientation not in any acute distress. Well developed, well nourished. HEENT: Pupils are round and equally reacting to light. EOMI. No scleral icterus. No conjunctival pallor. Normocephalic, atraumatic. No pharyngeal erythema. No thyromegaly. CARDIOVASCULAR: S1 and S2 present. No murmurs, rubs, or gallops. PULMONARY: Bilateral minimal rhonchi ABDOMEN: Soft, nontender, nondistended, normoactive bowel sounds. No palpable organomegaly. MUSCULOSKELETAL: No joint swelling or deformity. EXTREMITIES: No cyanosis, clubbing, or pedal edema. NEUROLOGICAL: Gross neurological examination did not reveal any new focal deficits. SKIN: Stage III decubitus ulcer - Labs CBC & Chem 7: 02/24/21 07:26 02/24/21 07:26 Labs: Abnormal Lab Results - Last 24 Hours (Table) 02/24/21 02/24/21 02/25/21 Range/Units 16:23 20:43 06:54 POC Glucose (mg/dL) 216 H 293 H 296 H (75-99) mg/dL 02/25/21 Range/Units 11:39 POC Glucose (mg/dL) 222 H (75-99) mg/dL Microbiology - Last 24 Hours (Table) 02/23/21 15:00 Blood Culture - Preliminary Blood No Growth after 24 hours 02/23/21 14:41 Blood Culture - Preliminary Blood No Growth after 24 hours Assessment and Plan Plan: Possible right lower lobe pneumonia: Continue with Zosyn. Patient's saturations are better today we will try to wean her off oxygen -Acute hypoxic respiratory failure secondary to pneumonia 7 history of sleep apnea for which patient is supposed to use CPAP noncompliant with CPAP. -Sacral decubitus ulcer patient has a Lazcano catheter at this time urine although bit abnormal not really impressive for urinary tract infection although will be evaluated blood cultures -Dementia appears to be moderate to severe. Etiology of dementia is probably vascular or senile dementia -Hyperlipidemia -Hypertension -Benign prostatic hypertrophy -History of prostate cancer
--- NOTE | 2021-02-25 13:24 | P.PN ---
Subjective Progress Note Date: 02/25/21 Principal diagnosis: Acute hypoxic respiratory failure secondary to right lower lobe pneumonia 80-year-old male, who presents to the emergency department on February 23, by private vehicle, for apparent shortness of breath. The patient was recently at [facility] after a fall. At that time, he was apparently found to have a urinary tract infection and was discharged home on antibiotics. Apparently the day of admission to the emergency department, February 23, the pat bernabe was having increasing shortness of breath, and saturations in the mid 80s. EMS was called. Hence he was brought in to be evaluated. He denied any chest pain. The patient does have a history of extensive tobacco use, although he quit 20 years ago, he did start smoking at the age of 14. He denies a history of COPD or asthma. Currently, his chest x-ray shows a possible infiltrate in the right lower lobe. He is on 4 L of oxygen, her saturations are 92%. He is afebrile. His blood pressure, heart rate, respiratory rate overall stable. White count 12.24, hemoglobin 11.1, hematocrit 38.6, and platelet count 221,000. PT, INR, and PTT are all normal. Sodium 144, potassium 4.9, chlorides 101, CO2 38, anion gap 5, BUN 40, creatinine 1.3. Polk virus testing was negative. On 02/25/2021 patient seen in follow-up on medical surgical floor, he is resting comfortably in bed, breathing comfortably, he is currently on 4 L of oxygen, he did wear BiPAP last night. Signs have been stable, his pro-calcitonin level came back elevated at 1.54 suggesting bacterial pneumonia. Today's follow-up chest x-ray shows stable bilateral patchy interstitial infiltrates. Patient remains on Zosyn for antibiotic coverage, he is on oral Lasix once daily, he is on inhalers. Does have blood cultures have been negative, no complaints of chest discomfort, lung sounds reveal breath sounds, no wheezing, no crackles. Objective - Vital Signs Vital signs: Vital Signs Temp 97.5 F L 02/25/21 07:49 Pulse 72 02/25/21 11:00 Resp 22 02/25/21 07:49 BP 180/78 02/25/21 07:49 Pulse Ox 97 02/25/21 07:49 Intake & Output 02/24/21 02/25/21 02/25/21 18:59 06:59 18:59 Output Total 850 1200 Balance -850 -1200 Output: Urine 850 1200 Other: Voiding Method Indwelling Catheter Indwelling Catheter Indwelling Catheter - Exam GENERAL EXAM: Alert, very pleasant, 80-year-old white male, 4 L of oxygen with a pulse ox of 97%, comfortable in no apparent distress. HEAD: Normocephalic/atraumatic. EYES: Normal reaction of pupils, equal size. Conjunctiva pink, sclera white. NOSE: Clear with pink turbinates. THROAT: No erythema or exudates. NECK: No masses, no JVD, no thyroid enlargement, no adenopathy. CHEST: No chest wall deformity. Symmetrical expansion. LUNGS: Equal air entry with no crackles, wheeze, rhonchi or dullness. CVS: Regular rate and rhythm, normal S1 and S2, no gallops, no murmurs, no rubs ABDOMEN: Soft, nontender. No hepatosplenomegaly, normal bowel sounds, no guarding or rigidity. EXTREMITIES: No clubbing, no edema, no cyanosis, 2+ pulses and upper and lower extremities. MUSCULOSKELETAL: Muscle strength and tone normal. SPINE: No scoliosis or deformity SKIN: No rashes CENTRAL NERVOUS SYSTEM: Alert and oriented -3. No focal deficits, tone is normal in all 4 extremities. PSYCHIATRIC: Alert and oriented -3. Appropriate affect. Intact judgment and insight. - Labs CBC & Chem 7: 02/24/21 07:26 02/24/21 07:26 Labs: Abnormal Lab Results - Last 24 Hours (Table) 02/24/21 02/24/21 02/25/21 Range/Units 16:23 20:43 06:54 POC Glucose (mg/dL) 216 H 293 H 296 H (75-99) mg/dL 02/25/21 Range/Units 11:39 POC Glucose (mg/dL) 222 H (75-99) mg/dL Microbiology - Last 24 Hours (Table) 02/23/21 15:00 Blood Culture - Preliminary Blood No Growth after 24 hours 02/23/21 14:41 Blood Culture - Preliminary Blood No Growth after 24 hours Assessment and Plan Plan: Assessment: #1. Acute hypoxic respiratory failure secondary to right lower lobe pneumonia, possibly healthcare acquired. Patient tested negative for COVID, influenza screen was negative #2. Recent hospitalization at [facility] for a urinary tract infection #3. History of dementia #4. History of diabetes mellitus type 2 #5. History of hypertension #6. History of hyperlipidemia #7. History of BPH #8. History of prostate cancer #9. History of sleep apnea noncompliant with CPAP Plan: Continue current antibiotic coverage, vital signs have been stable No fever or chills Continue oral Lasix, continue breathing treatments Follow-up labs tomorrow BiPAP support at night We'll continue to follow I performed a history & physical examination of the patient and discussed their management with my nurse practitioner, Paula Hogue. I reviewed the nurse practitioner's note and agree with the documented findings and plan of care. Lung sounds are positive for diffuse crackles at the bases The findings and the impression was discussed with the patient. I attest to the documentation by the nurse practitioner. Time with Patient: Less than 30
[2021-02-25 13:31] VITALS: BMI 29.2
[2021-02-25 16:37] LABS: Glucose,Whole Blood 136 mg/dL (75-99)
[2021-02-25 20:20] LABS: Glucose,Whole Blood 172 mg/dL (75-99)
[2021-02-25] MEDS: FINASTERIDE 5 MG TAB PO SCH (20:42)
[2021-02-25] MEDS: ATORVASTATIN 20 MG TAB PO SCH (20:42)
[2021-02-25] MEDS: TAMSULOSIN 0.4 MG CAP.ER.24H PO SCH (20:42)
[2021-02-26] MEDS: PIPERACILLIN-TAZOBACTAM 3.375 GM in SODIUM CHLORIDE 0.9% 100 ML IVPB SCH ×2 (01:25→10:17)
[2021-02-26 07:21] LABS: Glucose,Whole Blood 190 mg/dL (75-99)
[2021-02-26] MEDS: HYDROcodone/APAP 5-325MG 1 EACH TAB PO PRN (07:42)
[2021-02-26] MEDS: INSULIN DETEMIR (LEVEMIR) 100 UNIT/ML SYR SQ SCH (07:42)
[2021-02-26] MEDS: carvediloL 12.5 MG TAB PO SCH (07:43)
[2021-02-26] MEDS: PREGABALIN 100 MG CAP PO SCH (07:43)
[2021-02-26] MEDS: LOSARTAN 50 MG TAB PO SCH (07:43)
[2021-02-26] MEDS: ITRACONAZOLE 100 MG CAP PO SCH (07:43)
[2021-02-26] MEDS: amLODIPine 10 MG TAB PO SCH (07:43)
[2021-02-26] MEDS: ASPIRIN 81 MG PO SCH (07:44)
[2021-02-26] MEDS: INSULIN ASPART (NovoLOG) 100 UNIT/ML VIAL SQ SCH ×2 (07:44→12:12)
[2021-02-26] MEDS: PANTOPRAZOLE 40 MG TABLET PO SCH (07:44)
[2021-02-26] MEDS: FUROSEMIDE 20 MG TAB PO SCH (07:44)
[2021-02-26] MEDS: HEPARIN SODIUM,PORCINE/PF 5,000 UNIT/0.5 ML SYRINGE SQ SCH (07:44)
[2021-02-26] MEDS: POTASSIUM CHLORIDE ER 10 MEQ TAB.ER.PRT PO SCH (07:44)
[2021-02-26] MEDS: DULoxetine HCL 60 MG CAPSULE.DR PO SCH (07:44)
[2021-02-26] MEDS: IPRATROPIUM-ALBUTEROL 3 ML NEB INHALATION SCH ×2 (08:41→14:23)
[2021-02-26] MEDS: BUDESONIDE 1 MG/2 ML NEBU INHALATION SCH (08:41)
[2021-02-26] MEDS: FORMOTEROL FUMARATE 20 MCG/2 ML NEBU INHALATION SCH (08:41)
--- NOTE | 2021-02-26 10:58 | P.DS ---
Providers Date of admission: 02/23/21 15:38 Attending physician: Jonas Garza Consults: 02/23/21 18:22 Consult Physician Routine Consulting Provider: Alin Velásquez Consult Reason/Comments: Respitory Do you want consulting provider notified?: Yes Primary care physician: [facility] Course: Patient is a pleasant 80-year-old female is admitted at for shortness of breath, hypoxia and possible right lower lobe pneumonia and patient is presently on -4 L of oxygen. Patient does use CPAP at nighttime for sleep apnea. Patient had a stage III decubitus ulcer which is healed now. Patient does have history of dementia unable to get much of the history from the patient patient the mental status apparently is at her baseline. 02/26/2021 Patient acute as ulcer is healed and patient has a chronic Lazcano catheter which will be continued PHYSICAL EXAMINATION: GENERAL: The patient is alert and able to assess his orientation not in any acute distress. Well developed, well nourished. HEENT: Pupils are round and equally reacting to light. EOMI. No scleral icterus. No conjunctival pallor. Normocephalic, atraumatic. No pharyngeal erythema. No thyromegaly. CARDIOVASCULAR: S1 and S2 present. No murmurs, rubs, or gallops. PULMONARY: Bilateral minimal rhonchi ABDOMEN: Soft, nontender, nondistended, normoactive bowel sounds. No palpable organomegaly. MUSCULOSKELETAL: No joint swelling or deformity. EXTREMITIES: No cyanosis, clubbing, or pedal edema. NEUROLOGICAL: Gross neurological examination did not reveal any new focal deficits. SKIN: decubitus ulcer which is healed Assessment and Plan Plan: Possible right lower lobe pneumonia: Patient remains on folds approximate patient usually uses 3-4 L of oxygen at home. Patient is obese and does have sleep apnea as well patient will be discharged on Augmentin -Acute hypoxic respiratory failure secondary to pneumonia 7 history of sleep apnea for which patient is supposed to use CPAP noncompliant with CPAP. 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 -Hyperlipidemia -Hypertension -Benign prostatic hypertrophy -History of prostate cancer Patient Condition at Discharge: Serious Plan - Discharge Summary Discharge Rx Participant: No New Discharge Prescriptions: New Ipratropium-Albuterol Nebulize [Duoneb 0.5 mg-3 mg/3 ml Soln] 3 ml INHALATION RT-TID PRN ml PRN Reason: Shortness Of Breath Or Wheezing Continue Itraconazole [Sporanox] 100 mg PO DAILY Semaglutide [Ozempic] 2 mg SQ ANGULO Fluticasone/Umeclidin/Vilanter [Trelegy Ellipta 100-62.5-25] 1 puff INHALATION RT-DAILY Docusate [Colace] 100 mg PO HS traZODone HCL [Desyrel] 100 mg PO HS Pantoprazole Sodium [Protonix] 40 mg PO DAILY DULoxetine HCL [Cymbalta] 60 mg PO DAILY Finasteride [Proscar] 5 mg PO HS Pregabalin [Lyrica] 100 mg PO BID #10 cap Insulin Degludec [Tresiba Flextouch U-200] 53 units SQ DAILY Losartan Potassium 50 mg PO DAILY Celecoxib [CeleBREX] 200 mg PO BID Discontinued Doxycycline Hyclate 100 mg PO BID Potassium Chloride ER [K-Dur 10] 10 meq PO DAILY Furosemide [Lasix] 20 mg PO DAILY No Action Carvedilol [Coreg] 25 mg PO BID Tamsulosin HCl [Flomax] 0.4 mg PO HS amLODIPine [Norvasc] 10 mg PO DAILY Atorvastatin [Lipitor] 20 mg PO HS Aspirin EC [Ecotrin Low Dose] 81 mg PO DAILY Discharge Medication List Aspirin EC [Ecotrin Low Dose] 81 mg PO DAILY 01/05/18 [History] Atorvastatin [Lipitor] 20 mg PO HS 01/05/18 [History] Carvedilol [Coreg] 25 mg PO BID 01/05/18 [History] Tamsulosin HCl [Flomax] 0.4 mg PO HS 01/05/18 [History] amLODIPine [Norvasc] 10 mg PO DAILY 01/05/18 [History] Celecoxib [CeleBREX] 200 mg PO BID 02/23/21 [History] DULoxetine HCL [Cymbalta] 60 mg PO DAILY 02/23/21 [History] Docusate [Colace] 100 mg PO HS 02/23/21 [History] Finasteride [Proscar] 5 mg PO HS 02/23/21 [History] Fluticasone/Umeclidin/Vilanter [Trelegy Ellipta 100-62.5-25] 1 puff INHALATION RT-DAILY 02/23/21 [History] Insulin Degludec [Tresiba Flextouch U-200] 53 units SQ DAILY 02/23/21 [History] Itraconazole [Sporanox] 100 mg PO DAILY 02/23/21 [History] Losartan Potassium 50 mg PO DAILY 02/23/21 [History] Pantoprazole Sodium [Protonix] 40 mg PO DAILY 02/23/21 [History] Semaglutide [Ozempic] 2 mg SQ ANGULO 02/23/21 [History] traZODone HCL [Desyrel] 100 mg PO HS 02/23/21 [History] Ipratropium-Albuterol Nebulize [Duoneb 0.5 mg-3 mg/3 ml Soln] 3 ml INHALATION RT-TID PRN ml 02/26/21 [Rx] Pregabalin [Lyrica] 100 mg PO BID #10 cap 02/26/21 [Rx] Follow up Appointment(s)/Referral(s): Gianfranco Dela Cruz DO [Primary Care Provider] - 1-2 days
[2021-02-26 11:48] LABS: Glucose,Whole Blood 160 mg/dL (75-99)
[2021-02-26 14:06] VITALS: BP 132/58; PULSE 82; RESP 22; TEMP 97.9
--- NOTE | 2021-02-26 15:52 | P.PN ---
Subjective Progress Note Date: 02/26/21 Principal diagnosis: Acute hypoxic respiratory failure secondary to right lower lobe pneumonia 80-year-old male, who presents to the emergency department on February 23, by private vehicle, for apparent shortness of breath. The patient was recently at [facility] after a fall. At that time, he was apparently found to have a urinary tract infection and was discharged home on antibiotics. Apparently the day of admission to the emergency department, February 23, the pat bernabe was having increasing shortness of breath, and saturations in the mid 80s. EMS was called. Hence he was brought in to be evaluated. He denied any chest pain. The patient does have a history of extensive tobacco use, although he quit 20 years ago, he did start smoking at the age of 14. He denies a history of COPD or asthma. Currently, his chest x-ray shows a possible infiltrate in the right lower lobe. He is on 4 L of oxygen, her saturations are 92%. He is afebrile. His blood pressure, heart rate, respiratory rate overall stable. White count 12.24, hemoglobin 11.1, hematocrit 38.6, and platelet count 221,000. PT, INR, and PTT are all normal. Sodium 144, potassium 4.9, chlorides 101, CO2 38, anion gap 5, BUN 40, creatinine 1.3. [place]k virus testing was negative. On 02/25/2021 patient seen in follow-up on medical surgical floor, he is resting comfortably in bed, breathing comfortably, he is currently on 4 L of oxygen, he did wear BiPAP last night. Signs have been stable, his pro-calcitonin level came back elevated at 1.54 suggesting bacterial pneumonia. Today's follow-up chest x-ray shows stable bilateral patchy interstitial infiltrates. Patient remains on Zosyn for antibiotic coverage, he is on oral Lasix once daily, he is on inhalers. Does have blood cultures have been negative, no complaints of chest discomfort, lung sounds reveal breath sounds, no wheezing, no crackles. On 02/26/2021 patient is seen in follow-up on medical surgical floor. He is resting comfortably in the chair, he is currently on 4 L of oxygen, his pulse ox is 90%, he is breathing comfortably, his had no acute events overnight, no fever or chills, no complaints of chest discomfort, no increased cough or congestion. No new chest x-rays today, patient was treated with antibiotics for pneumonia, he tested negative for COVID-19. His blood cultures have been negative. No acute events overnight. Discharge planning is in progress for discharge to [facility] in [place] Objective - Vital Signs Vital signs: Vital Signs Temp 97.9 F 02/26/21 14:00 Pulse 82 02/26/21 14:00 Resp 22 02/26/21 14:00 BP 132/58 02/26/21 14:00 Pulse Ox 90 L 02/26/21 14:00 Intake & Output 02/25/21 02/26/21 02/26/21 18:59 06:59 18:59 Output Total 500 1100 Balance -500 -1100 Weight 87.09 kg Output: Urine 500 1100 Other: Voiding Method Indwelling Catheter Indwelling Catheter Indwelling Catheter - Exam GENERAL EXAM: Alert, very pleasant, 80-year-old white male, 4 L of oxygen with a pulse ox of 90%, comfortable in no apparent distress. HEAD: Normocephalic/atraumatic. EYES: Normal reaction of pupils, equal size. Conjunctiva pink, sclera white. NOSE: Clear with pink turbinates. THROAT: No erythema or exudates. NECK: No masses, no JVD, no thyroid enlargement, no adenopathy. CHEST: No chest wall deformity. Symmetrical expansion. LUNGS: Equal air entry with no crackles, wheeze, rhonchi or dullness. CVS: Regular rate and rhythm, normal S1 and S2, no gallops, no murmurs, no rubs ABDOMEN: Soft, nontender. No hepatosplenomegaly, normal bowel sounds, no guarding or rigidity. EXTREMITIES: No clubbing, no edema, no cyanosis, 2+ pulses and upper and lower extremities. MUSCULOSKELETAL: Muscle strength and tone normal. SPINE: No scoliosis or deformity SKIN: No rashes CENTRAL NERVOUS SYSTEM: Alert and oriented -3. No focal deficits, tone is normal in all 4 extremities. PSYCHIATRIC: Alert and oriented -3. Appropriate affect. Intact judgment and insight. - Labs CBC & Chem 7: 02/24/21 07:26 02/24/21 07:26 Labs: Abnormal Lab Results - Last 24 Hours (Table) 02/25/21 02/25/21 02/26/21 Range/Units 16:36 20:18 07:19 POC Glucose (mg/dL) 136 H 172 H 190 H (75-99) mg/dL 02/26/21 Range/Units 11:46 POC Glucose (mg/dL) 160 H (75-99) mg/dL Microbiology - Last 24 Hours (Table) 02/23/21 15:00 Blood Culture - Preliminary Blood No Growth after 48 hours 02/23/21 14:41 Blood Culture - Preliminary Blood No Growth after 48 hours Assessment and Plan Plan: Assessment: #1. Acute hypoxic respiratory failure secondary to right lower lobe pneumonia, possibly healthcare acquired. Patient tested negative for COVID, influenza screen was negative #2. Recent hospitalization at [facility] for a urinary tract infection #3. History of dementia #4. History of diabetes mellitus type 2 #5. History of hypertension #6. History of hyperlipidemia #7. History of BPH #8. History of prostate cancer #9. History of sleep apnea noncompliant with CPAP Plan: Vital signs have been stable, no acute events overnight, no fever or chills, Breathing has improved, BiPAP support at night, patient will go to ECF on home oxygen Repeat testing for COVID was negative From pulmonary perspective patient is stable for transfer to [facility] today I performed a history & physical examination of the patient and discussed their management with my nurse practitioner, Paula Hogue. I reviewed the nurse practitioner's note and agree with the documented findings and plan of care. Lung sounds are positive for diffuse crackles at the bases The findings and the impression was discussed with the patient. I attest to the documentation by the nurse practitioner. Time with Patient: Less than 30
--- NOTE | 2021-03-03 10:36 | CDI ---
Documentation Clarification Form Date: 03/03/21 From: Lakeshia Barrera Phone: Admit Date: 02/23/2021 03:38:00 PM Patient Name: Gutierrez Ratliff Visit Number: [id number] Discharge Date: 02/26/2021 02:28:00 PM ATTENTION: The Clinical Documentation Specialists (CDI) and [facility] Coding Staff appreciate your assistance in clarifying documentation. Please respond to the clarification below the line at the bottom and electronically sign. The CDI & [facility] Coding staff will review the response and follow-up if needed. Please note: Queries are made part of the Legal Health Record. If you have any questions, please contact the author of this message via ITS. Dr. Ky Granger, Possible sepsis is documented 02/[address] Montanez, but is not noted in subsequent documentation. Clarification is requested. History/Risk Factors: Recently treated for sepsis and UTI Clinical Indicators: Acute bilateral pneumonia, right more than left with acute hypoxic/ hypercarbic respiratory failure on BIPAP. Possible sepsis. Treatment: IV Azithromycin, IV Zoysn, nebulizer treatment Please clarify if the [insert diagnosis] is: [ ] Sepsis due to pneumonia confirmed, remains under treatment [ ] Sepsis ruled out [ ] Other condition, please specify [ ] Unable to determine My impression is as per my note cannot speak for Dr. Montanez. [facility]
--- NOTE | 2021-03-06 09:51 | CDI ---
Documentation Clarification Form Date: 03/06/2021 09:48:00 AM From: Lakeshia Barrera Phone: Admit Date: 02/23/2021 03:38:00 PM Patient Name: Gutierrez Ratliff Visit Number: [id number] Discharge Date: 02/26/2021 02:28:00 PM ATTENTION: The Clinical Documentation Specialists (CDI) and [facility] Coding Staff appreciate your assistance in clarifying documentation. Please respond to the clarification below the line at the bottom and electronically sign. The CDI & [facility] Coding staff will review the response and follow-up if needed. Please note: Queries are made part of the Legal Health Record. If you have any questions, please contact the author of this message via ITS. Dr. Justina Montanez, Possible sepsis is documented in your 02/24 progress note, but is not noted in subsequent documentation. Clarification is requested. History/Risk Factors: Recently treated for sepsis and UTI Clinical Indicators: Acute bilateral pneumonia, right more than left with acute hypoxic/ hypercarbic respiratory failure on BIPAP. Possible sepsis. Treatment: IV Azithromycin, IV Zoysn, nebulizer treatment Please clarify if the [insert diagnosis] is: [ ] Sepsis due to pneumonia confirmed, remains under treatment [ ] Sepsis ruled out [ ] Other condition, please specify [ ] Unable to determine possible sepsis due to pneumonia MTDD
== END 2021-02-26 14:28 | DRG 871 ==
LOC: EC 14:18 → 4SSUR 15:38
PROVIDERS: ADMIT Internal Medicine; ATTEND Internal Medicine
PROC: 5A09457 Assistance with Respiratory Ventilation, 24-96 Consecutive Hours, Continuous Positive Airway Pressure (ICD-10-PCS; principal; 2021-02-23)
DX: A41.9 Sepsis, unspecified organism (principal); J15.9 Unspecified bacterial pneumonia; J96.01 Acute respiratory failure with hypoxia; J96.02 Acute respiratory failure with hypercapnia; G93.41 Metabolic encephalopathy; E44.1 Mild protein-calorie malnutrition; E66.2 Morbid (severe) obesity with alveolar hypoventilation; E11.65 Type 2 diabetes mellitus with hyperglycemia; D64.9 Anemia, unspecified; F03.90 Unspecified dementia, unspecified severity, without behavioral disturbance, psychotic disturbance, mood disturbance, and anxiety; Z79.4 Long term (current) use of insulin; Z66 Do not resuscitate; E78.5 Hyperlipidemia, unspecified; Z20.822 Contact with and (suspected) exposure to COVID-19; I10 Essential (primary) hypertension; G47.33 Obstructive sleep apnea (adult) (pediatric); N40.1 Benign prostatic hyperplasia with lower urinary tract symptoms; R33.8 Other retention of urine; R39.14 Feeling of incomplete bladder emptying; M19.90 Unspecified osteoarthritis, unspecified site; N42.9 Disorder of prostate, unspecified; Z68.29 Body mass index [BMI] 29.0-29.9, adult; Z91.19 Patient's noncompliance with other medical treatment and regimen; Z79.82 Long term (current) use of aspirin; Z79.51 Long term (current) use of inhaled steroids; Z79.1 Long term (current) use of non-steroidal anti-inflammatories (NSAID); Z79.899 Other long term (current) drug therapy; Z87.891 Personal history of nicotine dependence; Z85.46 Personal history of malignant neoplasm of prostate; Z86.19 Personal history of other infectious and parasitic diseases; Z96.652 Presence of left artificial knee joint; Z96.643 Presence of artificial hip joint, bilateral; Z87.438 Personal history of other diseases of male genital organs; Z87.440 Personal history of urinary (tract) infections; Z91.81 History of falling; Z98.890 Other specified postprocedural states; Z71.3 Dietary counseling and surveillance; Z88.1 Allergy status to other antibiotic agents; Z80.9 Family history of malignant neoplasm, unspecified; Z84.89 Family history of other specified conditions
CPT/HCPCS: 36415; 71045; 80048; 80053; 81001; 82728; 83605; 83615; 83735; 83880; 84145; 84484; 85025; 85610; 85730; 86140; 87040; 87502; 87635; 93005; 94640; 94660; 99285